=== PATIENT | male | born 1955 ===

== ENCOUNTER 2017-06-17 09:33 | Inpatient (IN) | payer OTHER ==
[2017-06-17 09:47] LABS: % IMMATURE GRANULYOCYTES 0.5 % (0.0-1.1); ABSOLUTE IMMATURE GRANULOCYTES 0.05 10^3/uL (0.00-0.10); ADD DIFF? NO; ADD MORPH? NO; ADD SCAN? NO; ATYPICAL LYMPHOCYTE FLAG 10 (0-99); FRAGMENT RBC FLAG 0 (0-99); HEMATOCRIT 40.9 % (40.0-51.0); HEMOGLOBIN 14.1 g/dL (13.7-17.5); LEFT SHIFT FLG 0 (0-99); LIPEMIA HEMOLYSIS FLAG 90 (0-99); MEAN CELL HEMOGLOBIN 32.1 pg (27.9-34.1); MEAN CELL HEMOGLOBIN CONCENTR. 34.5 g/dL (32.4-36.7); MEAN CELL VOLUME 93.2 fL (81.5-99.8); MEAN PLATELET VOLUME 10.2 fL (8.7-11.7); PLATELET CLUMPS FLAG 0 (0-99); PLATELET COUNT 294 10^3/uL (150-400); RED BLOOD CELL COUNT 4.39 10^6/uL (4.40-6.38); RED CELL DISTRIBUTION WIDTH 12.4 % (11.5-15.2)
--- NOTE | 2017-06-17 09:54 | CPEKG ---
Heart Rate: 45 RR Interval: 1333 P-R Interval: 204 QRSD Interval: 112 QT Interval: 476 QTC Interval: 412 P [place]: 198 QRS [place]: -18 T Wave [place]: -2 EKG Severity - ABNORMAL ECG - EKG Impression: SINUS OR ECTOPIC ATRIAL BRADYCARDIA EKG Impression: INCOMPLETE RIGHT BUNDLE BRANCH BLOCK EKG Impression: LEFT VENTRICULAR HYPERTROPHY Electronically Signed By: Dari Obando 17-Jun-2017 15:05:49
--- NOTE | 2017-06-17 09:55 | EDPHY ---
H & P Time Seen by Provider: 06/17/17 09:35 HPI/ROS: CHIEF COMPLAINT: Headache, nausea HISTORY OF PRESENT ILLNESS: 62-year-old male presents with sudden onset of headache this morning. Sudden onset of severe generalized headache this morning , associated with diaphoresis and nausea. On matrix supervisor arrival, he had slurred speech and left-sided weakness. Zofran 4 mg IV given for nausea. His speech is somewhat better now, but remains slurred. The left-sided weakness has improved. He continues to have a severe generalized headache. He is not on aspirin or other anticoagulants. No prior bleeding disorder. No recent head or neck trauma. 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 Physical Exam: General Appearance: Alert, pale, appears in pain Eyes: Pupils equal and round, no conjunctival pallor or injection ENT, Mouth: Mucous membranes moist Neck: Normal inspection Respiratory: Lungs are clear to auscultation Cardiovascular: Regular rate and rhythm Gastrointestinal: Abdomen is soft and nontender Neurological: alert, slurred speech, cranial nerves intact, motor 5/5 Skin: Warm and dry Extremities: Nontender, no pedal edema Psychiatric: flat affect Constitutional: Initial Vital Signs Heart Rate 45 L 06/17/17 09:49 Respiratory Rate 27 H 06/17/17 09:49 Blood Pressure 167/98 H 06/17/17 09:49 O2 Sat (%) 97 06/17/17 09:49 O2 Delivery Mode Nasal Cannula O2 (L/minute) 2 Allergies/Adverse Reactions: No Known Allergies Allergy (Unverified 06/17/17 10:10) Home Medications: Medication Instructions Recorded Prozac 20 MG (*) 06/17/17 Medical Decision Making - Diagnostics EKG Interpretation: EKG interpreted by me reveals the atrial bradycardia, rate 45, LVH. Imaging Results: Imaging Impressions Head CT 06/17/17 09:34 Impression: Acute intraparenchymal hemorrhage involving the cerebellar vermis measuring 4.3 x 3.5 cm with tonsillar herniation. Findings and recommendations discussed with Emergency Department physician, Dari Obando, at 0940 hours, 06/17/2017. Final report concurs with initial preliminary interpretation. A test result has been communicated to a licensed care provider and documented in the [employer] Critical Result system on 06/17/2017 10:09, Message ID [id number].. ED Course/Re-evaluation: This patient presents as a stroke alert with a sudden onset of severe headache. CT reveals a an acute cerebellar hemorrhage, with mass effect. Dr. Natasha Mccord was consulted and will see the patient in the emergency department. 9:45 a.m.-reassessment, drowsy, answers all questions appropriately, speech is slightly slurred, motor 5/5 bilaterally. Systolic blood pressure is 167. Cardene drip IV ordered; SBP goal 140-160. Seen by Dr. Mccord in the emergency department. Speech became more slurred throughout his emergency department stay. Neurologic exam was otherwise unchanged on serial exams. Normal respiratory status. We set up in case of possible need for intubation, but he maintained his airway throughout and was breathing normally. The patient was taken emergently to the operating room for evacuation of hemorrhage. I spent a total of 40 minutes of critical care time in obtaining history, performing a physical exam, bedside monitoring of interventions, collecting and interpreting tests and discussion with consultants but not including time spent performing procedures. Organ at risk: Brain Differential Diagnosis: Altered mental status including but not limited to subarachnoid hemorrhage, meningitis, migraine headache, hypoglycemia, infectious process, electrolyte abnormality, head injury and intoxicants. - Data Points Laboratory Results: Laboratory Results 06/17/17 09:30 06/17/17 09:30 06/17/17 06/17/17 06/17/17 09:35 09:30 09:30 WBC RBC Hgb POC Hgb 14.3 gm/dL gm/dL (13.7-17.5) Hct POC Hct 42 % % (40-51) MCV MCH MCHC RDW Plt Count MPV Neut % (Auto) Lymph % (Auto) [place] % (Auto) Eos % (Auto) Baso % (Auto) Nucleat RBC Rel Count Absolute Neuts (auto) Absolute Lymphs (auto) Absolute Monos (auto) Absolute Eos (auto) Absolute Basos (auto) Absolute Nucleated RBC Immature Gran % Immature Gran # PT 13.1 SEC SEC (12.0-15.0) INR 0.97 (0.83-1.16) APTT 24.1 SEC SEC (23.0-38.0) POC Sodium 143 mEq/L mEq/L (134-144) Sodium 144 mEq/L mEq/L (134-144) POC Potassium 3.2 mEq/L L mEq/L (3.3-5.0) Potassium 3.6 mEq/L mEq/L (3.5-5.2) POC Chloride 103 mEq/L mEq/L (97-110) Chloride 104 mEq/L mEq/L (97-110) Carbon Dioxide 24 mEq/l mEq/l (22-31) Anion Gap 16 mEq/L mEq/L (8-16) POC BUN 11 mg/dL mg/dL (7-23) BUN 11 mg/dL mg/dL (7-23) Creatinine 0.9 mg/dL mg/dL (0.7-1.3) POC Creatinine 1.0 mg/dL mg/dL (0.7-1.3) Estimated GFR > 60 Glucose 134 mg/dL H mg/dL (70-100) POC Glucose 143 mg/dL H mg/dL (70-100) Calcium 9.0 mg/dL mg/dL (8.5-10.4) Troponin I < 0.012 ng/mL ng/mL (0.000-0.034) 06/17/17 09:30 WBC 10.48 10^3/uL H 10^3/uL (3.80-9.50) RBC 4.39 10^6/uL L 10^6/uL (4.40-6.38) Hgb 14.1 g/dL g/dL (13.7-17.5) POC Hgb Hct 40.9 % % (40.0-51.0) POC Hct MCV 93.2 fL fL (81.5-99.8) MCH 32.1 pg pg (27.9-34.1) MCHC 34.5 g/dL g/dL (32.4-36.7) RDW 12.4 % % (11.5-15.2) Plt Count 294 10^3/uL 10^3/uL (150-400) MPV 10.2 fL fL (8.7-11.7) Neut % (Auto) 54.5 % % (39.3-74.2) Lymph % (Auto) 32.9 % % (15.0-45.0) [place] % (Auto) 11.5 % % (4.5-13.0) Eos % (Auto) 0.4 % L % (0.6-7.6) Baso % (Auto) 0.2 % L % (0.3-1.7) Nucleat RBC Rel Count 0.0 % % (0.0-0.2) Absolute Neuts (auto) 5.71 10^3/uL 10^3/uL (1.70-6.50) Absolute Lymphs (auto) 3.45 10^3/uL H 10^3/uL (1.00-3.00) Absolute Monos (auto) 1.21 10^3/uL H 10^3/uL (0.30-0.80) Absolute Eos (auto) 0.04 10^3/uL 10^3/uL (0.03-0.40) Absolute Basos (auto) 0.02 10^3/uL 10^3/uL (0.02-0.10) Absolute Nucleated RBC 0.00 10^3/uL 10^3/uL (0-0.01) Immature Gran % 0.5 % % (0.0-1.1) Immature Gran # 0.05 10^3/uL 10^3/uL (0.00-0.10) PT INR APTT POC Sodium Sodium POC Potassium Potassium POC Chloride Chloride Carbon Dioxide Anion Gap POC BUN BUN Creatinine POC Creatinine Estimated GFR Glucose POC Glucose Calcium Troponin I Medications Given: Discontinued Medications Bacitracin (Bacitracin Ointment Tube) Confirm Administered Dose 14.2 jefferson TP .STK -MED ONE Stop: 06/17/17 10:30 Last Admin: 06/17/17 12:56 Dose: 1 jefferson Bacitracin (Bacitracin Syringe) Confirm Administered Dose 50,000 units IRR .STK- MED ONE Stop: 06/17/17 10:32 Last Admin: 06/17/17 12:43 Dose: 50,000 units Bupivacaine HCl (Sensorcaine 0.25% Sdv) Confirm Administered Dose 30 ml .ROUTE .STK-MED ONE Stop: 06/17/17 10:31 Last Admin: 06/17/17 12:55 Dose: 30 ml Cefazolin Sodium (Ancef) Confirm Administered Dose [address] .[facility]-MED ONE Stop: 06/17/17 11:41 Last Admin: 06/17/17 12:50 Dose: 1 gm Cefazolin Sodium (Ancef) Confirm Administered Dose [address]-MED ONE Stop: 06/17/17 11:54 Last Admin: 06/17/17 12:50 Dose: 1 gm Chlorhexidine Gluconate (Hibiclens) Confirm Administered Dose [address]-MED ONE Stop: 06/17/17 10:30 Last Admin: 06/17/17 12:44 Dose: 1 btl Epinephrine HCl (Epinephrine) Confirm Administered Dose [address]-MED ONE Stop: 06/17/17 11:03 Last Admin: 06/17/17 12:55 Dose: 1 mg Fibrinogen/Thrombin (Surgiflo Matrix Kit With Thrombin) Confirm Administered Dose [address]-MED ONE Stop: 06/17/17 10:29 Last Admin: 06/17/17 12:46 Dose: 8 ml Nicardipine/Sodium Chloride (Cardene 0.1 Mg/Ml (Premix)) 200 mls @ 0 mls/hr IV EDNOW ONE; Titrate PRN Reason: Protocol Stop: 06/17/17 09:58 Last Admin: 06/17/17 10:11 Dose: 200 mls Microfibrillar Collagen Hemostat (Avitene Powder) Confirm Administered Dose [address]-MED ONE Stop: 06/17/17 10:32 Last Admin: 06/17/17 12:48 Dose: 1 gm Thrombin (Thrombin-Jmi) Confirm Administered Dose 5,[address]-MED ONE Stop: 06/17/17 10:31 Last Admin: 06/17/17 12:46 Dose: 5,000 unit Point of Care Test Results: 06/17/17 09:35 POC Sodium 143 POC Potassium 3.2 L POC Chloride 103 POC BUN 11 POC Creatinine 1.0 POC Glucose 143 H Departure - Departure Disposition: [facility] Inpatient Acute Clinical Impression: Acute cerebellar hemorrhage Condition: Critical
[2017-06-17] MEDS ORDERED: niCARdipine/NACL 200 ML IV ONE (09:57)
[2017-06-17 09:59] LABS: ANION GAP 16 mEq/L (8-16); CARBON DIOXIDE 24 mEq/l (22-31); CHLORIDE 104 mEq/L (97-110); CREATININE 0.9 mg/dL (0.7-1.3); GLOMERULAR FILTRATION RATE > 60; GLUCOSE 134 mg/dL (70-100); POTASSIUM 3.6 mEq/L (3.5-5.2); SODIUM 144 mEq/L (134-144)
[2017-06-17 10:01] LABS: INR 0.97 (0.83-1.16); PROTIME(PATIENT) 13.1 SEC (12.0-15.0)
[2017-06-17 10:02] LABS: APTT 24.1 SEC (23.0-38.0)
[2017-06-17] MEDS ORDERED: IOPAMIDOL (ISOVUE 370) 100 ML BTL IV ONE (10:08)
[2017-06-17 10:11] LABS: TROPONIN I < 0.012 ng/mL (0.000-0.034)
[2017-06-17] MEDS ORDERED: SURGIFLO MATRIX KIT WITH THROMBIN 8ml TP ONE (10:28)
[2017-06-17] MEDS ORDERED: BACITRACIN ZINC 14.2 GM OINTTUBE TP ONE (10:29)
[2017-06-17] MEDS ORDERED: CHLORHEXIDINE GLUC HIBICLENS 118 ML BTL TP ONE (10:29)
[2017-06-17] MEDS ORDERED: THROMBIN (BOVINE) 5,000 UNIT VIAL TP ONE (10:30)
[2017-06-17] MEDS ORDERED: BUPIVACAINE 0.25% 30 ML SDV ONE (10:30)
[2017-06-17] MEDS ORDERED: MANNITOL 20% 100 GM/500 ML BAG IV ONE (10:30)
[2017-06-17] MEDS ORDERED: BACITRACIN 50,000 UNITS/10 ML SYR IRR ONE (10:31)
[2017-06-17] MEDS ORDERED: HYDROGEN PEROXIDE 236 ML BOTTLE TP ONE (10:31)
[2017-06-17] MEDS ORDERED: AVITENE POWDER 1 GM JAR TP ONE (10:31)
[2017-06-17] MEDS ORDERED: SUCCINYLCHOLINE CHLORIDE 200 MG/10 ML SYR IVP ONE (10:40)
[2017-06-17] MEDS ORDERED: ROCURONIUM 50 MG/5 ML VIAL ONE ×3 (10:40→13:33)
[2017-06-17] MEDS ORDERED: PHENYLEPHRINE 10 MG/ML SDV ONE (10:41)
[2017-06-17] MEDS ORDERED: PROPOFOL 200 MG/20 ML VIAL ONE ×2 (10:47→15:42)
[2017-06-17] MEDS ORDERED: LIDOCAINE 2% 5 ML SDV ONE (10:47)
[2017-06-17] MEDS ORDERED: fentaNYL 100 MCG/2 ML INJ ONE ×2 (10:48→15:44)
--- NOTE | 2017-06-17 11:29 | GHP ---
[f rep st] HISTORY AND PHYSICAL DATE OF ADMISSION: 06/17/2017 HISTORY OF PRESENT ILLNESS: The patient is a 62-year-old male who presented to the emergency room du e to the sudden onset of a headache. The patient states he woke up this morning with a severe headac he. He also had associated nausea and vomiting, as well as diaphoresis. Currently in the emergency room department, he is having slurred speech and is becoming lethargic. PAST MEDICAL HISTORY: Denies. PAST SURGICAL HISTORY: Tonsillectomy, hernia repair. SOCIAL HISTORY: The patient is visiting from [place]. Admits to alcohol use. Denies tobacco and rec reational drug use. ALLERGIES: No known drug allergies. CURRENT HOME MEDICATIONS: Denies. FAMILY HISTORY: No pertinent neurosurgical family history. REVIEW OF SYSTEMS: Unable to obtain due to patient's mental status. PHYSICAL EXAMINATION: GENERAL: The patient was seen and examined in the emergency room department carter Mccord and myself. VITAL SIGNS: Blood pressure is 161/98, heart rate is 88, respirations are 18, breathing 97% on room air. HEENT: Pupils are equal and reactive. NEUROLOGICAL EXAMINATION: Speech is slurred. Patient is lethargic. Needs constant stimulation to a nswer questions. Facial expression is symmetrical. Hearing appears to be intact. Lower extremity s trength is full at 5/5 upper extremity strength. Unable to fully assess due to lack of cooperation a nd participation. Right upper extremity dysmetria. LABORATORY DATA: White count 10.48, hemoglobin 14.1, hematocrit is 40.9, platelet count 294. PT 13. 1, INR 0.97, PTT 24.1. Sodium 143, potassium 3.6, chloride 104, bicarb 24, BUN 11, creatinine 0.9. IMAGING: CT of the head: Acute intraparenchymal hemorrhage in the midline cerebellar vermis, measur ing 4.3 x 3.5 cm, with extension into the 4th ventricle. Mass effect and edema. Early tonsillar her niation with flattening of the 4th ventricle. No hydrocephalus. Bilateral parietal-occipital atroph y. No midline shift or herniation. ASSESSMENT AND PLAN: In summary, the patient is a 62-year-old male with sudden onset of headache, no w with nausea, vomiting, slurred speech, and increasing lethargy. The CT has been completed, demonst rating an acute intraparenchymal hemorrhage involving the cerebellar vermis, measuring 4.3 x 3.5 cm w ith tonsillar herniation. We will obtain a stat CTA of the head to rule out aneurysm rupture. Due t o the patient's rapid decline in neurological status, as well as his head CT, we recommend proceeding with emergent surgical intervention with a posterior fossa craniotomy. The risks, benefits, and pro cedure were discussed in detail with the patient's over the phone by Dr. Mccord. After the CT of the head, patient will be taken directly to the operating room to proceed with surgical interve ntion by Dr. Ruiz. He will then be admitted to the intensive care unit with neuro checks every ashley r and close blood pressure management. The patient was seen and examined by myself and Dr. Natasha Mccord in the emergency room. /[id number]/MODL
[2017-06-17] MEDS ORDERED: ceFAZolin 1 GM VIAL ONE ×2 (11:40→11:53)
--- NOTE | 2017-06-17 11:52 | PDANEPAE ---
ANE History of Present Illness cerebellar hemorrhage ANE Past Medical History - Cardiovascular History Hx Hypertension: No Hx Arrhythmias: No Hx Chest Pain: No - Pulmonary History Hx COPD: No Hx Asthma/Reactive Airway Disease: No - Neurologic History Hx Cerebrovascular Accident: Yes Hx Seizures: No Hx Dementia: No - Endocrine History Hx Diabetes: No - Renal History Hx Renal Disorders: No - Liver History Hx Hepatic Disorders: No ANE Review of Systems Review of Systems: - Exercise capacity Exercise capacity: unable to assess ANE Patient History - Allergies Allergies/Adverse Reactions: No Known Allergies Allergy (Unverified 06/17/17 10:10) - Home Medications Home Medications: Prozac 20 MG (*) 06/17/17 [Last Taken Unknown] - Anes Hx Anes Hx: no prior problems ANE Labs/Vital Signs - Labs Result Diagrams: 06/17/17 09:30 06/17/17 09:30 - Vital Signs Blood Pressure: 161/90 Heart Rate: 88 Respiratory Rate: 18 O2 Sat (%): 97 Weight: 111 kg ANE Physical Exam - Airway Mallampati Score: Class 2 Mouth exam: normal dental/mouth exam - Pulmonary Pulmonary: no respiratory distress - Cardiovascular Cardiovascular: regular rate and rhythym - ASA Status ASA Status: II, E ANE Anesthesia Plan Anesthesia Plan: general endotracheal anesthesia Lines/Monitors: arterial line, additional IV Urgent/Emergent Case: Kalia carney completed preop but documented later for safe timely pt care
[2017-06-17] MEDS ORDERED: MAGNESIUM HYDROXIDE 30 ML UDCUP PO PRN (11:59)
[2017-06-17] MEDS ORDERED: POLYETHYLENE GLYCOL 3350 17 GM PKT PO PRN (11:59)
[2017-06-17] MEDS ORDERED: ACETAMINOPHEN 325 MG TAB PO PRN (11:59)
[2017-06-17] MEDS ORDERED: BISACODYL 10 MG SUPP PR PRN (11:59)
[2017-06-17] MEDS ORDERED: LACTULOSE 20 GM/30 ML UDCUP PO PRN (11:59)
--- NOTE | 2017-06-17 12:44 | ASMTCMCOM ---
CM Note CM Note Notes: Patient arrived to ER via EMS "Stroke Alert" from the [facility]. Patient is visiting from [facility]. Emergency contact for his /partner, Jamie found and . Jamie reached on the former number and spoke with myself and Dr. Mccord (Neuro surgery) re consent for emergent surgery R/T hemorrhagic stroke. Consent received and verified with RN X2 (myself and charge gang weigher). Jamie informed of plan for patient to go directly to surgery and then to the ICU. Phone numbers and contact information provided, including ICU and ER CM office. Date Signed: 06/17/2017 12:43 PM Electronically Signed By:Smiley Mills RN
[2017-06-17] MEDS ORDERED: SUGAMMADEX SODIUM 200 MG/2 ML VIAL IVP ONE (15:00)
--- NOTE | 2017-06-17 15:38 | POSTOPPROG ---
Post Op Note Date of Operation: 06/17/17 Surgeon: Jennifer Castro Radiophone Operator: Jennifer Castro SET UP WORKER Anesthesiologist: Alfredo Anesthesia: GET(General Endotracheal) Pre-op Diagnosis: Cerebellum Hemorrage Procedure: Posterior Fossa Craniotomy and placement of right ventriculostomy drain Inf/Abcess present in the surg proc area at time of surgery?: No EBL: 100-500 Total fluids administered: 1000ml Complications: None Date of Surgery: 06/17/17 Post Op Day: 0 Assessment/Plan: Assessment: 62 yr old s/p posterior fossa craniotomy for cerebellum hemorrhage and placement of right ventriculostomy drain Plan: -Admit to ICU -Keep hob at 30-45 degrees -EVD open at 5 mmg -Nicardipine ordered to keep sbp less than 130 -PT/OT/ST to eval and treat -Post op CT head no contrast ordered for 1800 today -Please call neurosurgery with any questions/concerns Subjective: Patient waking up in ICU Objective: Waking up in ICU from surgery PERRLA No droop Following commands 5/5 BUE, BLE Dressing CDI EVD site CDI Appropriate Neuro Check Frequency Ordered: Yes
[2017-06-17] MEDS ORDERED: METHOCARBAMOL 750 MG TAB PO SCH (16:00)
[2017-06-17] MEDS: HYDROmorphONE/DILAUDID 1 MG/ML INJ IVP PRN ×5 (16:16→22:53)
[2017-06-17] MEDS: NS W/ 20 KCl/L 1,000 ML IV SCH (16:20)
[2017-06-17] MEDS: niCARdipine/NACL 200 ML IV PRN ×5 (16:30→22:27)
[2017-06-17] MEDS ORDERED: hydrALAZINE 20 MG/ML VIAL ONE (17:00)
[2017-06-17] MEDS: hydrALAZINE 20 MG/ML VIAL IVP PRN ×2 (17:02→23:27)
[2017-06-17] MEDS: METHOCARBAMOL 1000 MG/10 ML VIAL IV SCH (19:40)
[2017-06-17] MEDS: SENNOSIDES/DOCUSATE SODIUM TAB PO SCH (21:02)
[2017-06-17] MEDS ORDERED: ACETAMINOPHEN 650 MG SUPP PR ONE (22:50)
[2017-06-17] MEDS: ACETAMINOPHEN 650 MG SUPP PR PRN (23:10)
[2017-06-18] MEDS: niCARdipine/NACL 200 ML IV PRN ×4 (00:21→05:33)
--- NOTE | 2017-06-18 00:36 | GOP ---
[f rep st] OPERATIVE REPORT DATE OF OPERATION: 06/17/2017 SURGEON: Ayan Ruiz MD NEUROSURGEON: Ayan Ruiz MD CAKE KNOCKER[facility] ANESTHESIA: General endotracheal and local. PREOPERATIVE DIAGNOSIS: 1. Cerebellar hemorrhage with brain compression. 2. Hypertension. POSTOPERATIVE DIAGNOSIS: 1. Cerebellar hemorrhage with brain compression. 2. Hypertension. PROCEDURE PERFORMED: 1. Subtemporal craniotomy for evacuation of cerebellar hematoma. 2. Placement of a right frontal external ventricular drain. FINDINGS: ESTIMATED BLOOD LOSS: 100 mL. INDICATIONS: The patient is a 62-year-old gentleman who has no known prior history of hypertension. Earlier this morning, he suddenly developed headache, nausea and slurred speech, as well as some left side weakness. He was brought to [facility] Emergency Department for evaluation. CT scan of the head demonstrated a fairly large cerebellar hematoma causing compression of the adjacent brain stem. On exam, he was awake and following commands, but had significantly slurred speech and mild weakness or lack of coordination on the left side of his body. Given the significant size of the hemorrhage and brain stem compression, it was recommended that he undergo emergency operation to remove the hematoma and place an external ventricular drain. Dr. Mccord spoke to his significant other via telephone and obtained consent for these procedures, however, she was not available to do them in an emergent manner, so I assumed the case. Notably , he had a CT angiogram that did not demonstrate any vascular malformation or other source for the hemorrhage. DESCRIPTION OF PROCEDURE: The patient was brought to the operating room and general anesthesia was initiated. He was intubated without complication. Appropriate lines were established. The Lloyd pins were then placed on the patient's head, and he was turned into prone position. The Lloyd was attached to the OR table and he was further positioned with all pressure points appropriately padded. A timeout was done per protocol. The patient was then prepped and draped in the usual sterile fashion. Approximately 15 mL of 0.25% Marcaine with epinephrine was injected along the intended incision for local anesthesia and vasoconstriction. A posterior midline incision was then made over the occipital bone over the upper cervical spine. This was carried deeper with Bovie cautery. The avascular midline plane was identified and the occipital bones, as well as the posterior arch of C1 were exposed to allow enough lateral retraction of the soft tissues to complete a wide craniotomy. Once the occipital bones were adequately, exposed, a matchstick bur on the high-speed drill was used to create 2 bur holes, 1 on each side of midline. The bur was then used to remove some of the intervening bone across the midline. A 2 mm Kerrison was used to further remove bone to connect the 2 bur holes. The side-cutting craniotome was then used to fashion a bilateral suboccipital craniotomy flap. This was removed and passed to the sterile back table. A dural incision was then made in a Y-shaped fashion in the midline. There was bleeding from a venous sinus. This was ligated with silk sutures and then sharply sectioned with scissors. The dural flaps were retracted. A small corticectomy was then made in the vermis, slightly to the patient's left side. It was extended inferiorly and superiorly, and then taken deeper until the blood clot was encountered. The hematoma was then removed in piecemeal fashion with suction and forceps. A large amount of blood clot was removed until part of the brain stem was exposed. At this point, there was very good decompression of the cerebellum. Attention was then turned to closure. Meticulous hemostasis was obtained. The dural flaps were then placed back in position and sutured primarily, as water- tight as possible. However, there was a fairly large defect near the inferior portion. A piece of Dura-Guard was sewn in to patch this section. A piece of DuraGen onlay was then placed over the entire opening. The bone flap was then replaced using 2 small bur hole covers and two 2-hole dog bone plates with 10 screws. The wound was thoroughly irrigated and then closed in layers starting with an 0 Vicryl in the deep muscles, followed by interrupted 0 Vicryl in the fascia, followed by inverted interrupted 2-0 Vicryl in the subcutaneous tissues, and finally skin everett in the superficial skin. A layer of bacitracin ointment was placed on this, and then a piece of Telfa dressing was stapled on top of it. The drapes were then removed. The patient was then turned into supine position after disconnecting the Lloyd from the table. The pins were removed from his head. There were no obvious complications from the pins. Attention was then turned to placement of a right frontal external ventricular drain. His head was again prepped and draped in the usual sterile fashion. A small linear incision was made over the right Imtiaz point, approximately 11.5 mm posterior from the nasion and 3.5 cm laterally. The periosteum was scraped aside after an incision was made with a # 15 blade. The hand drill was then used to create a twist drill hole in the right frontal bone. The dura was then opened sharply with a #11 blade. The ventricular catheter was then passed. There was not any return of cerebrospinal fluid on the first 3 attempts, but on the fourth attempt, after changing the angle slightly each time, there was return of cerebrospinal fluid. The catheter was then tunneled posteriorly under the scalp and then brought out through a separate stab incision, and the trocars were removed from the drain. It was temporarily capped. The incision was closed with running 4-0 nylon suture. The drain was then anchored to the scalp with 3-0 nylon suture. After it was anchored, the drain was connected to the Villalobos drainage system. It was patent. It was clamped at this point, and the drapes were removed. DRAINS: Right frontal external ventricular drain. COMPLICATIONS: None apparent. SPECIMENS: None. DISPOSITION: Will attempt to allow the patient to wake up and possibly extubate him in the operating room. He will then be taken to intensive care unit for further recovery. /[id number]/MODL MTDD
[2017-06-18] MEDS: HYDROmorphONE/DILAUDID 1 MG/ML INJ IVP PRN ×4 (01:17→16:36)
[2017-06-18 03:54] LABS: BASE EXCESS -1.2 mEq/L (-2.5-2.5); BICARBONATE 26 mEq/L (22-26); MEASURED OXYGEN SATURATION 92 % (92-95); PCO2 57 mmHg (34-38); PO2 71 mmHg (65-75); TCO2 28 mEq/L (23-27)
[2017-06-18] MEDS: METHOCARBAMOL 1000 MG/10 ML VIAL IV SCH ×3 (03:54→20:11)
[2017-06-18] MEDS: ONDANSETRON 4 MG/2 ML VIAL IVP PRN (03:54)
[2017-06-18 04:05] LABS: % IMMATURE GRANULYOCYTES 0.4 % (0.0-1.1); ABSOLUTE IMMATURE GRANULOCYTES 0.05 10^3/uL (0.00-0.10); ADD DIFF? NO; ADD MORPH? NO; ADD SCAN? NO; ATYPICAL LYMPHOCYTE FLAG 10 (0-99); FRAGMENT RBC FLAG 0 (0-99); HEMATOCRIT 36.4 % (40.0-51.0); HEMOGLOBIN 12.5 g/dL (13.7-17.5); LEFT SHIFT FLG 10 (0-99); LIPEMIA HEMOLYSIS FLAG 90 (0-99); MEAN CELL HEMOGLOBIN 32.9 pg (27.9-34.1); MEAN CELL HEMOGLOBIN CONCENTR. 34.3 g/dL (32.4-36.7); MEAN CELL VOLUME 95.8 fL (81.5-99.8); MEAN PLATELET VOLUME 10.1 fL (8.7-11.7); PLATELET CLUMPS FLAG 0 (0-99); PLATELET COUNT 257 10^3/uL (150-400); RED CELL DISTRIBUTION WIDTH 12.6 % (11.5-15.2)
[2017-06-18 04:15] LABS: ANION GAP 12 mEq/L (8-16); CALCIUM 8.2 mg/dL (8.5-10.4); CARBON DIOXIDE 26 mEq/l (22-31); CHLORIDE 108 mEq/L (97-110); CREATININE 0.9 mg/dL (0.7-1.3); GLOMERULAR FILTRATION RATE > 60; GLUCOSE 182 mg/dL (70-100); POTASSIUM 4.1 mEq/L (3.5-5.2); SODIUM 146 mEq/L (134-144)
[2017-06-18 06:26] LABS: BASE EXCESS -0.8 mEq/L (-2.5-2.5); BICARBONATE 24 mEq/L (22-26); MEASURED OXYGEN SATURATION 92 % (92-95); PCO2 40 mmHg (34-38); PO2 63 mmHg (65-75); TCO2 25 mEq/L (23-27)
--- NOTE | 2017-06-18 08:33 | NEUSURGPN ---
Date of Surgery: 06/17/17 Post Op Day: 1 Assessment/Plan: Assessment: 62 yr old s/p posterior fossa craniotomy for cerebellum hemorrhage and placement of right ventriculostomy drain POD#1 Plan: -Keep hob at 30-45 degrees -EVD open at 5 mmg, ICPs running 5-15, 80ml out last night -Nicardipine ordered to keep sbp less than 130. Patient currently on max, hydralzine ordered for prn. Appreciate medicine input on blood pressure management. -PT/OT/ST to eval and treat -Post op CT head has some residual blood, will get MRI brain with/without today for further evaluation -Will consult Neurology today -Discussed patient with Dr Ruiz, Dr Ruiz will be by to see patient this morning -Please call neurosurgery with any questions/concerns Subjective: Patient having some incisional pain Objective: Patient oriented to self, location Following commands PERRLA EOMI No droop CN 2-12 grossly intact 5/5 BUE, BLE Dressing CDI EVD site CDI Neuro Check Frequency: per routine Urinary Catheter in Place: Yes Urinary Catheter Indication: Accurate I & O Required, Neurogenic Bladder Catheter Insertion Date: 06/17/17 - Physician Discussed Patient with Dr.: Other (Dr Ruiz) Neurosurgery Physical Exam - Vitals, I&O, Labs I and O 06/17/17 06/18/17 06/19/17 05:59 05:59 05:59 Intake Total 2864 Output Total 1148 146 Balance 1716 -146 Weight 111 kg Intake: IV Infused (ml) 2864 NS W/ 20 KCl/L 1,000 ml @ 685 100 mls/hr IV CONT MARIO Rx#:[id number] ceFAZolin 1 GM/DEXTROSE 50 50 ml @ 200 mls/hr IV Q8H MARIO Rx#:[id number] niCARdipine/NACL 200 ml @ 1929 Titrate IV PRN PRN Rx#: [id number] Output: Urine (ml) 1060 125 Catheter 1060 125 CSF Drainage Amount 88 21 Ventriculostomy 88 21 Vital Signs Temp Pulse Resp BP Pulse Ox 37.1 C 84 24 H 135/49 H 97 06/18/17 07:00 06/18/17 08:00 06/18/17 08:00 06/18/17 08:00 06/18/17 08:00 Laboratory Results 06/18/17 03:40 06/18/17 03:40 ICD10 Worksheet Patient Problems: Problems Problem Status Onset Acute cerebellar hemorrhage Acute
[2017-06-18] MEDS: hydrALAZINE 20 MG/ML VIAL IVP PRN (09:13)
[2017-06-18] MEDS ORDERED: LABETALOL HCL 5 MG/ML 20 ML MDV IVP PRN (09:50)
[2017-06-18] MEDS: SENNOSIDES/DOCUSATE SODIUM TAB PO SCH ×2 (10:10→20:39)
[2017-06-18] MEDS: oxyCODONE IR 5 MG TAB PO PRN (10:11)
[2017-06-18] MEDS: NS W/ 20 KCl/L 1,000 ML IV SCH (10:45)
[2017-06-18] MEDS ORDERED: FUROSEMIDE 20 MG/2 ML VIAL IVP ONE (13:15)
[2017-06-18] MEDS ORDERED: ALTEPLASE 2 MG VIAL IVP PRN (13:15)
--- NOTE | 2017-06-18 13:19 | PDINTPN ---
Recreation Attendant Progress Note Assessment/Plan: Assessment: S/P Cerebellar ICH: S/P Evacuation 06/17. Neurologically improving. HTN: None prior to admission. Now requiring Nicardipine and still with SBP at upper limit of preferred range. Hypokalemia: Resolved. Hyperglycemia: BSs still in mid-upper 100s. Plan: Lasix, place PICC, add enalapril to Cardene, use labatelol PRN. Start SSI. 06/18/17 13:19 06/18/17 13:20 Subjective: Following commands, C/O headache. Objective: Vital Signs Temp Pulse Resp BP Pulse Ox 37.2 C 86 24 H 130/54 H 96 06/18/17 12:00 06/18/17 13:00 06/18/17 13:00 06/18/17 13:00 06/18/17 13:00 Laboratory Results 06/18/17 03:40 06/18/17 03:40 06/17/17 06/18/17 06/19/17 05:59 05:59 05:59 Intake Total 2864 Output Total 1148 254 Balance 1716 -254 PT 13.1 SEC (12.0-15.0) 06/17/17 09:30 INR 0.97 (0.83-1.16) 06/17/17 09:30 Physical Exam - Physical Exam General Appearance: alert, no apparent distress EENT: other (s/p craniotomy) Neck: normal inspection Respiratory: lungs clear Cardiac/Chest: regular rate, rhythm, No edema Abdomen: normal bowel sounds, non-tender Skin: normal color, warm/dry Extremities: normal inspection Neuro/Psych: alert, No normal mood/affect, No oriented x 3 ICD10 Worksheet Patient Problems: Problems Problem Status Onset Acute cerebellar hemorrhage Acute
--- NOTE | 2017-06-18 13:47 | GCON ---
[f rep st] CONSULTATION A PULMONARY/CRITICAL CARE CONSULTATION DATE OF CONSULTATION: 06/17/2017 REFERRING PHYSICIAN: Natasha Mccord DO REASON FOR REFERRAL: Evaluation and management of hyperglycemia and hypokalemia. HISTORY: The patient is a 62-year-old male who was admitted today via the ER after he woke up this m orning with a severe headache with associated nausea, vomiting, and diaphoresis. He developed slurre d speech and lethargy in the emergency department. A CT scan of the head showed an acute cerebellar hemorrhage with extension into the 4th ventricle. There was mass effect and edema and early tonsilla r herniation. He was taken to the operating room emergently by Dr. Mccord, who performed a cranioto my and evacuation of thrombus. He was returned to the intensive care unit, extubated, and not follow ing commands. No history could be obtained from the patient. PAST MEDICAL HISTORY: None. MEDICATIONS: Ativan p.r.n., Prozac. ALLERGIES: None. SOCIAL HISTORY: The patient is visiting from [place]. He drinks alcohol. He denies tobacco and othe r drug use. FAMILY HISTORY: Unremarkable. REVIEW OF SYSTEMS: Unobtainable. PHYSICAL EXAMINATION: GENERAL APPEARANCE: The patient is minimally responsive postoperatively. He follows some simple commands with repeated questioning, but does not follow commands reliably. He is not opening his eyes spontaneously or to command. VITAL SIGNS: Blood pressure is 158/79 with a hea rt rate of 91. He is afebrile. Oxygen saturations are 99% on 4 L. HEENT: He is status post a post erior craniotomy. He has no icterus. NECK: No adenopathy. Trachea is midline. CHEST: Clear to a uscultation. CARDIAC: Regular rate and rhythm without murmur. ABDOMEN: Soft, nontender. Bowel so unds are present. EXTREMITIES: No clubbing, cyanosis, or edema. NEURO: The patient is intermitten tly following some simple commands, is able to move all extremities. LABORATORY/IMAGING DATA: Potassium is 3.2. A sodium is 143. A creatinine is 1.0. Glucose is 143. A white blood count is 10.5 with a hemoglobin of 14.1. A CT scan of the head demonstrates a large m idline cerebellar hemorrhage. Images reviewed by me. ASSESSMENT: 1. Acute cerebellar hemorrhage. The patient is status post craniotomy with evacuation of the hemato ma. 2. Hypertension. The patient's blood pressure is elevated and this is above the goal for this posto perative patient. 3. Hypokalemia. This was not present on admission, but has developed during the hospitalization. T he patient is not having any arrhythmias. 4. Hyperglycemia. The patient's blood sugars have been running in the low-mid 100s since admission. The patient does not have a known history of diabetes. RECOMMENDATIONS: 1. Nicardipine as needed for hypertension. P.r.n. hydralazine and labetalol can be added on a p.r.n . basis. 2. Follow blood sugars. I will not start a sliding scale insulin currently, given his blood sugars have been below 150. 3. Replace potassium. 4. Frequent neuro checks. /[id number]/MODL
[2017-06-18] MEDS: LABETALOL HCL 5 MG/ML 20 ML MDV IVP PRN (14:07)
[2017-06-18] MEDS: LORazepam 2 MG/ML INJ IVP PRN (14:46)
--- NOTE | 2017-06-18 15:20 | ASMTCMCOM ---
CM Note CM Note Notes: Pt. is a 62-year-old man who had a cerebellar hemorrhage. Pt. had craniotomy. Pt. w/ slurred speech, dizziness, and tremors. Pt. visiting from [place] with his , Jamie . Jamie here and supportive. PT, OT, and SENIOR INVESTMENT MANAGER all recommending Inpatient Rehab at this time. Left message with Su Lovelace at [facility] Inpt. Rehab. Still need MD orders for Rehab Consult. CM to follow for d/c POC. Date Signed: 06/18/2017 03:19 PM Electronically Signed By:Yoly Werner LCSW
[2017-06-18] MEDS ORDERED: DEXMEDETOMIDINE HCL 400 MCG in NS 100 ML IV SCH (16:30)
[2017-06-18] MEDS ORDERED: LORazepam 2 MG/ML INJ IV ONE (17:00)
[2017-06-18] MEDS: ENALAPRILAT DIHYDRATE 1.25 MG/ML VIAL IVP SCH (17:07)
[2017-06-18] MEDS: INSULIN REGULAR HUMAN 100 UNIT/ML SC SCH ×2 (17:54→20:51)
[2017-06-18] MEDS: FAMOTIDINE 20 MG/NACL 50 ML IV SCH (20:20)
[2017-06-18] MEDS: ACETAMINOPHEN 650 MG SUPP PR PRN (20:25)
[2017-06-18 21:21] LABS: CALCULATED OXYGEN SATURATION 83 % (92-95)
[2017-06-18] MEDS: DEXMEDETOMIDINE IN 0.9 % NACL 100 ML IV SCH (21:42)
[2017-06-19] MEDS: ENALAPRILAT DIHYDRATE 1.25 MG/ML VIAL IVP SCH ×4 (00:52→18:34)
[2017-06-19] MEDS: HYDROmorphONE/DILAUDID 1 MG/ML INJ IVP PRN ×3 (00:52→17:30)
[2017-06-19] MEDS: METHOCARBAMOL 1000 MG/10 ML VIAL IV SCH ×2 (04:23→11:47)
[2017-06-19] MEDS: oxyCODONE IR 5 MG TAB PO PRN (05:58)
[2017-06-19] MEDS: hydrALAZINE 20 MG/ML VIAL IVP PRN (06:21)
--- NOTE | 2017-06-19 08:27 | SOAPPROG ---
SOAP Progress Note Assessment/Plan: Assessment/Plan: 62 yr old s/p posterior fossa craniotomy for cerebellum hemorrhage and placement of right ventriculostomy drain POD#2 Plan: -Keep hob at 30-45 degrees -EVD open at 5 mmg, ICP 7 this AM, draining about 10ml/hr -Nicardipine ordered to keep sbp less than 130. Patient currently on max, hydralzine ordered for prn, also on orals. Appreciate medicine input on blood pressure management. -PT/OT/ST to eval and treat -Post op CT head has some residual blood, will get MRI brain with/without when he can tolerate for further evaluation - Neurology consulted -Discussed patient with Dr Ruiz -Please call neurosurgery with any questions/concerns 06/19/17 08:27 06/19/17 08:28 Subjective: Subjective: Awake, comfortable with occasional agitation Objective: Vital Signs Temp Pulse Resp BP Pulse Ox 37.2 C 76 19 134/49 H 93 06/19/17 06:00 06/19/17 07:00 06/19/17 07:00 06/19/17 07:00 06/19/17 07:00 Laboratory Results 06/18/17 03:40 06/18/17 03:40 06/18/17 06/19/17 06/20/17 05:59 05:59 05:59 Intake Total 2864 2087.2 Output Total 1148 1817 19 Balance 1716 270.2 -19 PT 13.1 SEC (12.0-15.0) 06/17/17 09:30 INR 0.97 (0.83-1.16) 06/17/17 09:30 Objective: Slurred speech Following commands x4 PERRLA EOMI No droop 5/5 BUE, BLE Dressing CDI EVD site CDI ICD10 Worksheet Patient Problems: Problems Problem Status Onset Acute cerebellar hemorrhage Acute
[2017-06-19] MEDS: INSULIN REGULAR HUMAN 100 UNIT/ML SC SCH ×4 (08:32→21:37)
[2017-06-19] MEDS: FAMOTIDINE 20 MG/NACL 50 ML IV SCH ×2 (09:11→21:32)
[2017-06-19] MEDS: FLUoxetine 20 MG CAP PO SCH (09:11)
[2017-06-19] MEDS: SENNOSIDES/DOCUSATE SODIUM TAB PO SCH ×2 (09:11→21:28)
[2017-06-19] MEDS: DEXMEDETOMIDINE IN 0.9 % NACL 100 ML IV SCH (10:43)
--- NOTE | 2017-06-19 11:50 | PDINTPN ---
Discharge Planner Progress Note Assessment/Plan: Assessment: S/P Cerebellar ICH: S/P Evacuation 06/17. Neurologically improving. HTN: None prior to admission. Now requiring Nicardipine and still with SBP at upper limit of preferred range. Hypokalemia: Resolved. Hyperglycemia: BSs still in mid 100s. Plan: Start PO CCB and ADENIKE-I. Use labatelol PRN, but have had low HR. Can try minoxidil if still unable to control BP. Continue SSI. 06/19/17 11:48 Subjective: C/O BARNES. Still quite weak. Able to take PO. Objective: Vital Signs Temp Pulse Resp BP Pulse Ox 37.2 C 77 17 129/54 H 92 06/19/17 06:00 06/19/17 11:00 06/19/17 11:00 06/19/17 11:00 06/19/17 11:00 Laboratory Results 06/18/17 03:40 06/18/17 03:40 06/18/17 06/19/17 06/20/17 05:59 05:59 05:59 Intake Total 2864 2087.2 150 Output Total 1148 1817 206 Balance 1716 270.2 -56 PT 13.1 SEC (12.0-15.0) 06/17/17 09:30 INR 0.97 (0.83-1.16) 06/17/17 09:30 Physical Exam - Physical Exam General Appearance: alert, mild distress (wiht pain) EENT: normal ENT inspection Neck: full range of motion, normal inspection Respiratory: lungs clear, No normal breath sounds Cardiac/Chest: regular rate, rhythm, No edema Abdomen: normal bowel sounds, non-tender Skin: normal color, warm/dry Extremities: normal inspection Neuro/Psych: alert (Resting but arousable and able t oanswer simple questions/ follow commands.), No motor weakness ICD10 Worksheet Patient Problems: Problems Problem Status Onset Acute cerebellar hemorrhage Acute
[2017-06-19] MEDS ORDERED: LISINOPRIL 10 MG TAB PO SCH (12:00)
--- NOTE | 2017-06-19 13:14 | NEUROPROG ---
Assessment: [id number] CC: Dr. Rojo (Neurosurgery) consulted neurology for infratentorial hemorrhage. Results placed in the EMR for his review. HPI: Pt admitted to [facility] on 06/17/17 for intracerebral hemorrhage. He developed a sudden onset severe headache day of admission with associated N/V and slurred speech. Head CT showed a hemorrhage in the cerebellum. Neurosurgery performed a decompressive craniotomy and ventriculostomy to address. I initially saw the patient on 06/19/17. He was very sedated and his speech was dysarthric. PMHx: hernia repair, tonsillectomy SHx: no tobacco FHx: no pertinent neurosurgical history ROS: Pt denied acute fever, total vision loss, active severe chest pain, respiratory failure, total body severe rash, total bowel/bladder incontinence, psychosis, active seizures, or active bleeding O: VS reviewed General: Somnolent, has ventriculostomy Eyes: Fundoscopic exam not able to visualize optic disks CV: Heart RRR, no murmur, no carotid bruit Lungs: Clear to auscultation bilaterally, no rhonci or rales Neuro: - Mental: pt very somnolent and very dysarthric speech so could not perform full mental status testing - Cranial Nerves: . II: PERRL, VFFTC . III/IV/: EOMI, no nystagmus, normal smooth pursuits, no Ptosis . V: facial sensation intact to LT . VII: face symmetric to eye closure and smile . VIII: hearing intact to conversation . IX/X: dysarthric speech . XI: SCM 5/5 B/L strength . XII: dysarthric speech - Motor: . Tone: normal tone in all 4 extrem . Strength: generalized weakness but no clear focal weakness - Reflexes: B/L bic/BR/patella 2/4 - Sensory: all 4 extrem intact to light touch - Coord: no clear ataxia but generalized weakness complicates testing - Gait: deferred Labs: 06/17/17- CBC WBC 10.48H, Coags wnl, Chem Gluc 34H Rads: 06/17/17- Head CT: acute intraparenchymal hemorrhage involving cerebellar vermis w/ tonsillar herniation. (I personally visualized the images on 06/18/17) 06/17/17- Head CTA: Normal CT angiography of the head with attention to the great vessels of the [place]. No vascular abnormality is seen to explain posterior fossa hemorrhage. 06/17/17- Head CT: 1. Interval posterior fossa craniotomy with partial evacuation of the previously described vermian hematoma. There is persistent, though probably decreased, herniation of the cerebellar tonsils. 2. More extensive intraventricular hemorrhage involving the lateral and third ventricle. Hemorrhage in the fourth ventricle is stable. 3. Large blood in the quadrigeminal and cerebellomedullary cisterns is slightly increased 4. Interval placement of a right frontal ventriculostomy catheter. Assessment: 1. Cerebellar Hemorrhage with craniotomy and ventriculostomy on 06/17/17: CTA head unremarkable for cause. Plan: - Brain MRI w/ and w/o con to evaluate or any underlying lesion to explain bleed - Blood pressure recommendation per neurosurgery - Avoid antiplatelet and anticoagulation until neurosurgery OK with using if needed - Recommend PT/OT/Speech for rehab needs Objective: Vital Signs Temp Pulse Resp BP Pulse Ox 38.3 C 73 23 H 117/43 L 91 L 06/19/17 12:00 06/19/17 12:00 06/19/17 12:00 06/19/17 12:00 06/19/17 12:00 Laboratory Results 06/18/17 03:40 06/18/17 03:40 06/18/17 06/19/17 06/20/17 05:59 05:59 05:59 Intake Total 2864 2087.2 150 Output Total 1148 1817 290 Balance 1716 270.2 -140 PT 13.1 SEC (12.0-15.0) 06/17/17 09:30 INR 0.97 (0.83-1.16) 06/17/17 09:30 Allergies/Adverse Reactions: No Known Allergies Allergy (Unverified 06/17/17 10:10)
[2017-06-19] MEDS: amLODIPine BESYLATE 5 MG TAB PO SCH (13:33)
--- NOTE | 2017-06-19 15:00 | ASMTCMCOM ---
CM Note CM Note Notes: Spoke with Jamie, patient's at length re: options at d/c. Jamie is going to go with the medical recommendation about any rehab patient may need. Jamie did inform me their insurance [employer] is expiring at the end of the year and rolling over to [employer]. Jamie would like to take his home for rehab but if patient needs to complete it here for medical stability, he is willing to do this. Jamie is interested in [facility] inpatient rehab program and Su Lovelace has been contacted. An informational packet on the program was given to Jamie. We discussed SNF rehab as well in the event patient isn't recovered enough to do inpatient. Jamie will tour [facility], [facility], and/ or [facility] to determine if any of these facilities will be acceptable to patient as a back up plan. If patient is able to travel, Jamie prefers to find a rehab facility in [place] close to home. CM will follow. Date Signed: 06/19/2017 02:59 PM Electronically Signed By:Mariah Johnson LCSW
[2017-06-19] MEDS ORDERED: METHOCARBAMOL 750 MG TAB PO SCH (15:15)
[2017-06-19] MEDS: LORazepam 2 MG/ML INJ IVP PRN (17:30)
[2017-06-19] MEDS: levETIRAcetam 500 MG in NS 100 ML IV SCH (18:10)
[2017-06-19] MEDS ORDERED: LISINOPRIL 10 MG TAB PO ONE (20:00)
[2017-06-19] MEDS: ACETAMINOPHEN 650 MG SUPP PR PRN (21:52)
[2017-06-19] MEDS: METHOCARBAMOL 750 MG TAB PO SCH (22:10)
[2017-06-20] MEDS: ENALAPRILAT DIHYDRATE 1.25 MG/ML VIAL IVP SCH ×3 (00:50→11:46)
[2017-06-20] MEDS: HYDROmorphONE/DILAUDID 1 MG/ML INJ IVP PRN ×2 (03:32→23:11)
[2017-06-20 05:25] LABS: % IMMATURE GRANULYOCYTES 0.7 % (0.0-1.1); ABSOLUTE IMMATURE GRANULOCYTES 0.08 10^3/uL (0.00-0.10); ADD DIFF? NO; ADD MORPH? NO; ADD SCAN? NO; ATYPICAL LYMPHOCYTE FLAG 10 (0-99); FRAGMENT RBC FLAG 0 (0-99); HEMATOCRIT 32.6 % (40.0-51.0); HEMOGLOBIN 11.1 g/dL (13.7-17.5); LEFT SHIFT FLG 0 (0-99); LIPEMIA HEMOLYSIS FLAG 90 (0-99); MEAN CELL HEMOGLOBIN 32.8 pg (27.9-34.1); MEAN CELL VOLUME 96.4 fL (81.5-99.8); MEAN PLATELET VOLUME 9.9 fL (8.7-11.7); PLATELET CLUMPS FLAG 0 (0-99); PLATELET COUNT 258 10^3/uL (150-400); RED BLOOD CELL COUNT 3.38 10^6/uL (4.40-6.38); RED CELL DISTRIBUTION WIDTH 12.6 % (11.5-15.2)
[2017-06-20 05:35] LABS: ANION GAP 9 mEq/L (8-16); CALCIUM 8.5 mg/dL (8.5-10.4); CARBON DIOXIDE 28 mEq/l (22-31); CHLORIDE 113 mEq/L (97-110); CREATININE 0.9 mg/dL (0.7-1.3); GLOMERULAR FILTRATION RATE > 60; GLUCOSE 115 mg/dL (70-100); MAGNESIUM 2.3 mg/dL (1.6-2.3); POTASSIUM 3.9 mEq/L (3.5-5.2); SODIUM 150 mEq/L (134-144)
--- NOTE | 2017-06-20 05:51 | NEUSURGPN ---
Date of Surgery: 06/17/17 Post Op Day: 3 Assessment/Plan: Assessment: 62 yr old s/p posterior fossa craniotomy for cerebellum hemorrhage and placement of right ventriculostomy drain POD #3 Plan: -Keep hob at 30-45 degrees -EVD open at 5 mmg, ICP 3 normally with occasional reading of 12 when agitated, draining about 7-13ml/hr -raise EVD to 10mmhg -Nicardipine ordered to keep SBP less than 130. Patient currently on, hydralzine ordered for prn, also on orals. Appreciate medicine input on blood pressure management. -PT/OT/ST to eval and treat -Post op CT head has some residual blood, will get MRI brain with/without when he can tolerate for further evaluation -Neurology consulted as well as critical care and IM-appreciate involvement and care with him -Discussed patient with Dr Ruiz -Please call neurosurgery with any questions/concerns Subjective: No new events overnight per RN. EVD in place and working. Objective: Slurred speech c/w hx Following commands x 4 PERRLA EOMI No droop 5/5 BUE, BLE Dressing CDI EVD site CDI and working well Neuro Check Frequency: per routine Urinary Catheter in Place: Yes Urinary Catheter Indication: Acute Urinary Retention Catheter Insertion Date: 06/18/17 - Physician Discussed Patient with Dr.: Kyle (Joseph) Patient Seen by Dr.: Other (Joseph) Neurosurgery Physical Exam - Vitals, I&O, Labs I and O 06/18/17 06/19/17 06/20/17 05:59 05:59 05:59 Intake Total 2864 2087.2 1150.1 Output Total 1148 1817 1053 Balance 1716 270.2 97.1 Weight 111 kg Intake: Oral (ml) 150 150 IV Intake (ml) 373 IV Infused (ml) 2864 1937.2 627.1 Dexmedetomidine in 0.9 % 38.3 74.1 NaCl 100 ml @ Per Protocol IV CONT MARIO Rx#: [id number] Famotidine 20 mg/NaCl 50 55 ml @ 200 mls/hr IV Q12HRS MARIO Rx#:[id number] NS W/ 20 KCl/L 1,000 ml @ 685 917.3 100 mls/hr IV CONT MARIO Rx#:[id number] ceFAZolin 1 GM/DEXTROSE 50 50 ml @ 200 mls/hr IV Q8H MARIO Rx#:[id number] niCARdipine 50 mg In Ns 926.6 553 250 ml @ Titrate IV CONT MARIO Rx#:[id number] niCARdipine/NACL 200 ml @ 1929 Titrate IV PRN PRN Rx#: [id number] Output: Urine (ml) 1060 1650 855 Catheter 1060 1085 855 Urinal 565 CSF Drainage Amount 88 167 198 Ventriculostomy 88 167 198 Vital Signs Temp Pulse Resp BP Pulse Ox 37.3 C 64 19 117/52 L 94 06/20/17 04:00 06/20/17 04:00 06/20/17 04:00 06/20/17 04:00 06/20/17 04:00 Laboratory Results 06/20/17 05:15 06/20/17 05:15 ICD10 Worksheet Patient Problems: Problems Problem Status Onset Acute cerebellar hemorrhage Acute
[2017-06-20] MEDS: METHOCARBAMOL 750 MG TAB PO SCH ×3 (06:29→22:43)
[2017-06-20] MEDS: INSULIN REGULAR HUMAN 100 UNIT/ML SC SCH ×4 (07:46→20:08)
[2017-06-20] MEDS: DEXMEDETOMIDINE IN 0.9 % NACL 100 ML IV SCH ×4 (07:47→21:24)
[2017-06-20] MEDS: amLODIPine BESYLATE 5 MG TAB PO SCH (08:54)
[2017-06-20] MEDS: LISINOPRIL 10 MG TAB PO SCH (08:54)
[2017-06-20] MEDS: FLUoxetine 20 MG CAP PO SCH (08:55)
[2017-06-20] MEDS: FAMOTIDINE 20 MG/NACL 50 ML IV SCH ×2 (08:55→20:07)
[2017-06-20] MEDS: SENNOSIDES/DOCUSATE SODIUM TAB PO SCH ×2 (08:55→20:12)
[2017-06-20] MEDS: LORazepam 2 MG/ML INJ IVP PRN (09:41)
--- NOTE | 2017-06-20 11:59 | PDINTPN ---
Pot Puller Progress Note Assessment/Plan: Assessment: S/P Cerebellar ICH: S/P Evacuation 06/17. Neurologically improving. HTN: None prior to admission. Now requiring Nicardipine and still with SBP at upper limit of preferred range. Hypokalemia: Resolved. Hyperglycemia: BSs down to low 100s Hypernatremia: Na climbing Plan: Increase PO CCB and ADENIKE-I. Use labatelol PRN, but have had low HR. Can try minoxidil or clonidine if still unable to control BP. Continue SSI. Will encourage PO fluids, start hypotonic fluids if unable to take enough PO. 06/20/17 12:03 Subjective: Feels OK, c/o persistent BARNES Objective: Vital Signs Temp Pulse Resp BP Pulse Ox 37.3 C 75 21 H 133/54 H 92 06/20/17 08:00 06/20/17 11:00 06/20/17 11:00 06/20/17 11:46 06/20/17 11:00 Laboratory Results 06/20/17 05:15 06/20/17 05:15 06/19/17 06/20/17 06/21/17 05:59 05:59 05:59 Intake Total 2087.2 2033.1 Output Total 1817 1296 125 Balance 270.2 737.1 -125 PT 13.1 SEC (12.0-15.0) 06/17/17 09:30 INR 0.97 (0.83-1.16) 06/17/17 09:30 CTH: Reduction in blood. Images reviewed by me. Physical Exam - Physical Exam General Appearance: alert, no apparent distress EENT: normal ENT inspection Neck: normal inspection Respiratory: lungs clear, normal breath sounds Cardiac/Chest: regular rate, rhythm, No edema Abdomen: normal bowel sounds, non-tender Skin: normal color, warm/dry Extremities: non-tender Neuro/Psych: alert, oriented x 3, No motor weakness ICD10 Worksheet Patient Problems: Problems Problem Status Onset Acute cerebellar hemorrhage Acute
[2017-06-20] MEDS ORDERED: LORazepam 2 MG/ML INJ IVP ONE (12:00)
[2017-06-20] MEDS ORDERED: amLODIPine BESYLATE 5 MG TAB PO ONE (12:00)
[2017-06-20] MEDS: levETIRAcetam 500 MG in NS 100 ML IV SCH (12:03)
--- NOTE | 2017-06-20 13:36 | NEUROPROG ---
Assessment: [id number] CC: F/U for infratentorial hemorrhage. Narrative Summary: Pt admitted to [facility] on 06/17/17 for intracerebral hemorrhage. He developed a sudden onset severe headache day of admission with associated N/V and slurred speech. Head CT showed a hemorrhage in the cerebellum. Neurosurgery performed a decompressive craniotomy and ventriculostomy to address. I initially saw the patient on 06/19/17. He was very sedated and his speech was dysarthric. Keppra 500 mg bid added or shaking spell (sz vs sequelae from brain hemorrhage). HPI: F/U 06/20/17 in inpt setting. No further shaking spells since starting Keppra. Pt still confused with dysarthric speech but appears more awake today moving all 4 extrem and trying to get up. Brain MRI pending. PMHx: hernia repair, tonsillectomy SHx: no tobacco FHx: no pertinent neurosurgical history Rads: 06/17/17- Head CT: acute intraparenchymal hemorrhage involving cerebellar vermis w/ tonsillar herniation. 06/17/17- Head CTA: Normal CT angiography of the head with attention to the great vessels of the [place]. No vascular abnormality is seen to explain posterior fossa hemorrhage. 06/17/17- Head CT: 1. Interval posterior fossa craniotomy with partial evacuation of the previously described vermian hematoma. There is persistent, though probably decreased, herniation of the cerebellar tonsils. 2. More extensive intraventricular hemorrhage involving the lateral and third ventricle. Hemorrhage in the fourth ventricle is stable. 3. Large blood in the quadrigeminal and cerebellomedullary cisterns is slightly increased 4. Interval placement of a right frontal ventriculostomy catheter. Assessment: 1. Cerebellar Hemorrhage with craniotomy and ventriculostomy on 06/17/17: CTA head unremarkable for cause. Plan: - Brain MRI w/ and w/o con to evaluate or any underlying lesion to explain bleed - Blood pressure recommendation per neurosurgery - Avoid antiplatelet and anticoagulation until neurosurgery OK with using if needed - Recommend PT/OT/Speech for rehab needs 35 min spent with patient and his partner, majority of time spent counseling on prognosis and expected outcome. Objective: Vital Signs Temp Pulse Resp BP Pulse Ox 37.3 C 77 23 H 126/50 H 92 06/20/17 08:00 06/20/17 13:00 06/20/17 13:00 06/20/17 13:00 06/20/17 13:00 Laboratory Results 06/20/17 05:15 06/20/17 05:15 06/19/17 06/20/17 06/21/17 05:59 05:59 05:59 Intake Total 2087.2 2033.1 Output Total 1817 1296 445 Balance 270.2 737.1 -445 PT 13.1 SEC (12.0-15.0) 06/17/17 09:30 INR 0.97 (0.83-1.16) 06/17/17 09:30 Allergies/Adverse Reactions: No Known Allergies Allergy (Unverified 06/17/17 10:10)
[2017-06-20] MEDS: POTASSIUM Cl (KCl) 10 MEQ in D5W 1/2 NS 1,000 ML IV SCH (16:47)
[2017-06-20] MEDS: LABETALOL HCL 5 MG/ML 20 ML MDV IVP PRN (19:41)
[2017-06-20] MEDS: ACETAMINOPHEN 650 MG SUPP PR PRN (20:00)
[2017-06-21] MEDS: HYDROmorphONE/DILAUDID 1 MG/ML INJ IVP PRN ×4 (00:27→11:53)
[2017-06-21] MEDS: POTASSIUM Cl (KCl) 10 MEQ in D5W 1/2 NS 1,000 ML IV SCH ×2 (04:35→20:25)
[2017-06-21] MEDS: METHOCARBAMOL 750 MG TAB PO SCH ×3 (04:45→21:04)
[2017-06-21 04:51] LABS: ANION GAP 10 mEq/L (8-16); CALCIUM 8.2 mg/dL (8.5-10.4); CARBON DIOXIDE 27 mEq/l (22-31); CHLORIDE 117 mEq/L (97-110); CREATININE 0.8 mg/dL (0.7-1.3); GLOMERULAR FILTRATION RATE > 60; GLUCOSE 125 mg/dL (70-100); POTASSIUM 3.7 mEq/L (3.5-5.2); SODIUM 154 mEq/L (134-144)
--- NOTE | 2017-06-21 06:54 | NEUSURGPN ---
Date of Surgery: 06/17/17 Post Op Day: 4 Assessment/Plan: Assessment: 62 yr old s/p posterior fossa craniotomy for cerebellar hemorrhage and placement of right ventriculostomy drain POD #4 Plan: -Keep hob at 30-45 degrees -EVD open at 10 mmhg yesterday and tolerated. Dr Ruiz wants it clamped today and recheck CT in am -repeat CT in am -ICP 6-11 -Nicardipine ordered to keep SBP less than 130. Patient currently on, hydralzine ordered for prn, also on orals. Appreciate medicine input on blood pressure management. -PT/OT/ST to eval and treat -Post op CT head has some residual blood, will get MRI brain with/without when he can tolerate for further evaluation -Neurology consulted as well as critical care and IM-appreciate involvement and care with him -Discussed patient with Dr Ruiz -Please call neurosurgery with any questions/concerns Subjective: Awake and alert to verbal. Garbled speech. Follows commands. No new events overnight. Objective: Slurred speech c/w hx Following commands x 4-more cooperative this am PERRLA EOMI No droop 5/5 BUE, BLE Dressing CDI EVD site CDI and working well-clamped now Neuro Check Frequency: per routine Urinary Catheter in Place: Yes Urinary Catheter Indication: Other (Use Comment) (unable to ambulate, confusion) Catheter Insertion Date: 06/18/17 - Physician Discussed Patient with Dr.: Other (Joseph) Neurosurgery Physical Exam - Vitals, I&O, Labs I and O 06/20/17 06/21/17 06/22/17 05:59 05:59 05:59 Intake Total 2033.1 3305.9 Output Total 1296 2089 Balance 737.1 1216.9 Weight 107.5 kg 107 kg Intake: Oral (ml) 150 250 IV Intake (ml) 748 500 IV Infused (ml) 1135.1 2555.9 Dexmedetomidine in 0.9 % 202.1 534.7 NaCl 100 ml @ Per Protocol IV CONT MARIO Rx#: [id number] Famotidine 20 mg/NaCl 50 52 ml @ 200 mls/hr IV Q12HRS MARIO Rx#:[id number] POTASSIUM Cl (KCl) 10 meq 891.4 In D5w 1/2 Ns 1,000 ml @ 75 mls/hr IV CONT MARIO Rx #:[id number] niCARdipine 50 mg In Ns 933 1077.8 250 ml @ Titrate IV CONT MARIO Rx#:[id number] Output: Urine (ml) 1090 1976 Catheter 1090 1976 CSF Drainage Amount 206 112 Ventriculostomy 206 112 Vital Signs Temp Pulse Resp BP Pulse Ox 36.5 C 62 15 144/62 H 91 L 06/21/17 04:00 06/21/17 05:54 06/21/17 05:54 06/21/17 05:54 06/21/17 05:54 Laboratory Results 06/20/17 05:15 06/21/17 04:20 ICD10 Worksheet Patient Problems: Problems Problem Status Onset Acute cerebellar hemorrhage Acute
[2017-06-21] MEDS: FAMOTIDINE 20 MG/NACL 50 ML IV SCH ×2 (08:19→20:25)
[2017-06-21] MEDS: DEXMEDETOMIDINE IN 0.9 % NACL 100 ML IV SCH ×4 (08:21→22:59)
[2017-06-21] MEDS: INSULIN REGULAR HUMAN 100 UNIT/ML SC SCH ×4 (08:30→20:46)
[2017-06-21] MEDS: levETIRAcetam 500 MG in NS 100 ML IV SCH ×3 (08:54→21:04)
[2017-06-21] MEDS: amLODIPine BESYLATE 5 MG TAB PO SCH (11:09)
--- NOTE | 2017-06-21 11:15 | PDINTPN ---
Roundhouse Firer/Fireman Progress Note Assessment/Plan: Assessment: S/P Cerebellar ICH: S/P Evacuation 06/17. Neurologically improving. HTN: None prior to admission. Now requiring Nicardipine and still with SBP at upper limit of preferred range. Unable to safely take PO, so PO anti-HTN meds held this morning. On Nicardipine IV. Hypokalemia: Resolved. Hyperglycemia: BSs down to low 100s Hypernatremia: Na climbing, now 154 today Plan: Place feeding tube. Continue PO CCB and ADENIKE-I on feeding tube placed. Use labatelol PRN, but have had low HR. Can try minoxidil or clonidine if still unable to control BP. Wean down on nicardipine. Continue SSI. Will start TF with free H2O to address hypernatremia. 06/21/17 11:18 Subjective: A bit less responsive, ? due to IV pain medications for BARNES. Objective: Vital Signs Temp Pulse Resp BP Pulse Ox 36.7 C 88 20 128/49 H 92 06/21/17 07:00 06/21/17 11:00 06/21/17 11:00 06/21/17 11:00 06/21/17 11:00 Laboratory Results 06/20/17 05:15 06/21/17 04:20 06/20/17 06/21/17 06/22/17 05:59 05:59 05:59 Intake Total 2033.1 3305.9 Output Total 1296 2089 0 Balance 737.1 1216.9 0 PT 13.1 SEC (12.0-15.0) 06/17/17 09:30 INR 0.97 (0.83-1.16) 06/17/17 09:30 CTH: Stable. Images reviewed by me. Physical Exam - Physical Exam General Appearance: no apparent distress, No alert EENT: other, No normal ENT inspection (p posterior craniotomy) Neck: normal inspection Respiratory: lungs clear, No normal breath sounds Cardiac/Chest: normal peripheral pulses, regular rate, rhythm, No edema Abdomen: normal bowel sounds, non-tender Skin: normal color, warm/dry Extremities: normal inspection Neuro/Psych: No alert, No oriented x 3, No motor weakness ICD10 Worksheet Patient Problems: Problems Problem Status Onset Acute cerebellar hemorrhage Acute
[2017-06-21] MEDS ORDERED: LIDOCAINE 2% JELLY 20 ML (UROJECT) ONE (12:06)
[2017-06-21] MEDS: FLUoxetine 20 MG CAP PO SCH (13:05)
[2017-06-21] MEDS: LISINOPRIL 10 MG TAB PO SCH (13:05)
[2017-06-21] MEDS: SENNOSIDES/DOCUSATE SODIUM TAB PO SCH ×2 (13:05→20:26)
--- NOTE | 2017-06-21 13:28 | NEUROPROG ---
Assessment: [id number] CC: F/U for infratentorial hemorrhage. Narrative Summary: Pt admitted to [facility] on 06/17/17 for intracerebral hemorrhage. He developed a sudden onset severe headache day of admission with associated N/V and slurred speech. Head CT showed a hemorrhage in the cerebellum. Neurosurgery performed a decompressive craniotomy and ventriculostomy to address. I initially saw the patient on 06/19/17. He was very sedated and his speech was dysarthric. Keppra 500 mg bid added or shaking spell (sz vs sequelae from brain hemorrhage). F/U 06/20/17 in inpt setting. No further shaking spells since starting Keppra. Pt still confused with dysarthric speech but appears more awake today moving all 4 extrem and trying to get up. Brain MRI pending. HPI: F/U 06/21/17 in the inpt setting. Brain MRI still pending. No new major complaints. His partner feels he is stable. Pt having a GI tube placed. PMHx: hernia repair, tonsillectomy SHx: no tobacco FHx: no pertinent neurosurgical history ROS: No acute fever, total vision loss, active severe chest pain, respiratory failure, total body severe rash, total bowel/bladder incontinence, psychosis, active seizures, or active bleeding Labs: 06/21/17- K 3.7 Rads: 06/17/17- Head CT: acute intraparenchymal hemorrhage involving cerebellar vermis w/ tonsillar herniation. 06/17/17- Head CTA: Normal CT angiography of the head with attention to the great vessels of the makah of [place]. No vascular abnormality is seen to explain posterior fossa hemorrhage. 06/17/17- Head CT: 1. Interval posterior fossa craniotomy with partial evacuation of the previously described vermian hematoma. There is persistent, though probably decreased, herniation of the cerebellar tonsils. 2. More extensive intraventricular hemorrhage involving the lateral and third ventricle. Hemorrhage in the fourth ventricle is stable. 3. Large blood in the quadrigeminal and cerebellomedullary cisterns is slightly increased 4. Interval placement of a right frontal ventriculostomy catheter. Assessment: 1. Cerebellar Hemorrhage with craniotomy and ventriculostomy on 06/17/17: CTA head unremarkable for cause. Plan: - Brain MRI w/ and w/o con to evaluate or any underlying lesion to explain bleed - Blood pressure recommendation per neurosurgery - Avoid antiplatelet and anticoagulation until neurosurgery OK with using if needed - Recommend PT/OT/Speech for rehab needs Neurology will sign off but will become reinvolved if needed. Please call when brain MRI is completed if there are any questions or any change in neurologic status. Objective: Vital Signs Temp Pulse Resp BP Pulse Ox 36.7 C 78 16 137/74 H 93 06/21/17 12:00 06/21/17 13:00 06/21/17 13:00 06/21/17 13:06 06/21/17 13:00 Laboratory Results 06/20/17 05:15 06/21/17 04:20 06/20/17 06/21/17 06/22/17 05:59 05:59 05:59 Intake Total 2033.1 3305.9 Output Total 1296 2089 0 Balance 737.1 1216.9 0 PT 13.1 SEC (12.0-15.0) 06/17/17 09:30 INR 0.97 (0.83-1.16) 06/17/17 09:30 Allergies/Adverse Reactions: No Known Allergies Allergy (Unverified 06/17/17 10:10)
[2017-06-21] MEDS: hydrALAZINE 20 MG/ML VIAL IVP PRN (16:07)
[2017-06-21] MEDS: oxyCODONE IR 5 MG TAB PO PRN (16:14)
[2017-06-21] MEDS: ACETAMINOPHEN 650 MG/20.3 ML UDCUP TUBE PRN (19:39)
[2017-06-22] MEDS: DEXMEDETOMIDINE IN 0.9 % NACL 100 ML IV SCH ×5 (03:51→22:31)
[2017-06-22] MEDS: HYDROmorphONE/DILAUDID 1 MG/ML INJ IVP PRN ×2 (05:24→13:46)
[2017-06-22] MEDS: METHOCARBAMOL 750 MG TAB PO SCH (06:04)
[2017-06-22] MEDS: ACETAMINOPHEN 650 MG/20.3 ML UDCUP TUBE PRN ×3 (07:36→20:20)
[2017-06-22] MEDS: oxyCODONE IR 5 MG TAB PO PRN (07:37)
[2017-06-22] MEDS: FAMOTIDINE 20 MG/NACL 50 ML IV SCH (08:20)
[2017-06-22] MEDS: FLUoxetine 20 MG CAP PO SCH (08:26)
[2017-06-22] MEDS: LISINOPRIL 10 MG TAB PO SCH (08:26)
[2017-06-22] MEDS: SENNOSIDES/DOCUSATE SODIUM TAB PO SCH (08:26)
[2017-06-22] MEDS: levETIRAcetam 500 MG in NS 100 ML IV SCH (08:27)
--- NOTE | 2017-06-22 09:25 | NEUSURGPN ---
Assessment/Plan: Assessment: 62 yr old s/p posterior fossa craniotomy for cerebellar hemorrhage and placement of right ventriculostomy drain POD #5 Plan: -Keep hob at 30-45 degrees -EVD clamped. HCT okay, will recheck CT in am. If stable and no sings of hydrocephalus will likely d/c ventric tomorrow. -ICP 8-15 -Nicardipine ordered to keep SBP less than 130. Patient currently on, hydralzine ordered for prn, also on orals. Appreciate medicine input on blood pressure management. -PT/OT/ST to eval and treat -Neurology consulted as well as critical care and IM-appreciate involvement and care with him -Discussed patient with Dr Ruiz -Please call neurosurgery with any questions/concerns Subjective: Unable to obtain Objective: MAEx4 spontaneously. Not following commands. Grabbled speech PERRLA. ventric clamp, site c/d/i Catheter Insertion Date: 06/18/17 - Physician Discussed Patient with Dr.: Other (Joseph) Neurosurgery Physical Exam - Vitals, I&O, Labs I and O 06/21/17 06/22/17 06/23/17 05:59 05:59 05:59 Intake Total 3305.9 4312 40 Output Total 2089 1700 0 Balance 1216.9 2612 40 Weight 107 kg Intake: Oral (ml) 250 IV Intake (ml) 500 173 IV Infused (ml) 2555.9 3376 Dexmedetomidine in 0.9 % 534.7 439 NaCl 100 ml @ Per Protocol IV CONT MARIO Rx#: [id number] Famotidine 20 mg/NaCl 50 52 ml @ 200 mls/hr IV Q12HRS MARIO Rx#:[id number] POTASSIUM Cl (KCl) 10 meq 891.4 1738 In D5w 1/2 Ns 1,000 ml @ 75 mls/hr IV CONT MARIO Rx #:[id number] niCARdipine 50 mg In Ns 1077.8 1199 250 ml @ Titrate IV CONT MARIO Rx#:[id number] Tube Feeding (ml) 483 Tube Flush (ml) 280 40 Output: Urine (ml) 1976 1699 Catheter 1976 1700 CSF Drainage Amount 112 0 0 Ventriculostomy 112 0 0 Vital Signs Temp Pulse Resp BP Pulse Ox 37.1 C 54 L 12 134/59 H 92 06/22/17 07:00 06/22/17 09:00 06/22/17 09:00 06/22/17 09:00 06/22/17 09:00 Laboratory Results 06/20/17 05:15 06/21/17 04:20 ICD10 Worksheet Patient Problems: Problems Problem Status Onset Acute cerebellar hemorrhage Acute
[2017-06-22] MEDS: INSULIN REGULAR HUMAN 100 UNIT/ML SC SCH (09:34)
[2017-06-22] MEDS: hydrALAZINE 20 MG/ML VIAL IVP PRN ×4 (11:25→19:47)
[2017-06-22] MEDS ORDERED: LACTULOSE 20 GM/30 ML UDCUP TUBE PRN (11:30)
[2017-06-22] MEDS ORDERED: oxyCODONE IR 5 MG TAB TUBE PRN (11:30)
[2017-06-22] MEDS ORDERED: MAGNESIUM HYDROXIDE 30 ML UDCUP TUBE PRN (11:30)
[2017-06-22 11:58] LABS: % IMMATURE GRANULYOCYTES 0.8 % (0.0-1.1); ABSOLUTE IMMATURE GRANULOCYTES 0.07 10^3/uL (0.00-0.10); ADD DIFF? NO; ADD MORPH? NO; ADD SCAN? NO; ATYPICAL LYMPHOCYTE FLAG 0 (0-99); FRAGMENT RBC FLAG 0 (0-99); HEMOGLOBIN 12.1 g/dL (13.7-17.5); LEFT SHIFT FLG 0 (0-99); LIPEMIA HEMOLYSIS FLAG 80 (0-99); MEAN CELL HEMOGLOBIN 31.6 pg (27.9-34.1); MEAN CELL HEMOGLOBIN CONCENTR. 33.6 g/dL (32.4-36.7); MEAN PLATELET VOLUME 9.6 fL (8.7-11.7); PLATELET CLUMPS FLAG 20 (0-99); PLATELET COUNT 346 10^3/uL (150-400); RED BLOOD CELL COUNT 3.83 10^6/uL (4.40-6.38); RED CELL DISTRIBUTION WIDTH 12.1 % (11.5-15.2)
[2017-06-22] MEDS ORDERED: INSULIN REGULAR HUMAN 100 UNIT/ML SC SCH (12:00)
[2017-06-22 12:08] LABS: ANION GAP 11 mEq/L (8-16); CALCIUM 8.3 mg/dL (8.5-10.4); CARBON DIOXIDE 24 mEq/l (22-31); CHLORIDE 116 mEq/L (97-110); CREATININE 0.9 mg/dL (0.7-1.3); GLOMERULAR FILTRATION RATE > 60; GLUCOSE 146 mg/dL (70-100); POTASSIUM 3.7 mEq/L (3.5-5.2); SODIUM 151 mEq/L (134-144)
[2017-06-22] MEDS: POTASSIUM Cl (KCl) 10 MEQ in D5W 1/2 NS 1,000 ML IV SCH (12:38)
[2017-06-22] MEDS: METHOCARBAMOL 750 MG TAB TUBE SCH ×2 (13:21→22:31)
[2017-06-22] MEDS: POTASSIUM Cl (KCl) 20 MEQ, SODIUM CL 14.6% 38.5 MEQ in WATER FOR INJECTION,STERILE 1,00... IV SCH (14:35)
--- NOTE | 2017-06-22 14:56 | ASMTCMCOM ---
CM Note CM Note Notes: Met with patient's , Jamie who is leaning towards staying in [place] so that patient can go to [facility] In-pt Rehab. Jamie had questions about: how long patient might be in In-pt?; When they return to [place], would pt go to a SNF Rehab or Out-pt?; What happens at the beginning of the year when their ins changes from [employer] to [employer]? all great questions. Jamie to visit In-pt Rehab this week, many of those questions would be better answered when he meets with Admissions. Jamie and patient are [employer]reg[employer]. Jamie would like to participate in as much support at [facility] as is available. He is meeting with a Accounts Payable Analyst who is [employer]reg[employer] and would like to have a Family Mtg Thursday 12:00. Date Signed: 06/22/2017 02:56 PM Electronically Signed By:Christina Worrell LCSW
[2017-06-22] MEDS: oxyCODONE ORAL SOLUTION 10 MG/0.5 ML UDSYR TUBE PRN ×2 (15:43→19:47)
--- NOTE | 2017-06-22 17:33 | PDINTPN ---
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 Hypertensive after admission but no history of hypertension prior to this event. From [place]. S/P Cerebellar ICH: S/P Evacuation 06/17. Neurologically improving, but remains somnolent, confused and impulsive at times. HTN: None prior to admission. Now requiring Nicardipine and still with SBP at upper limit of preferred range. Unable to safely take POs. On Nicardipine IV and p.r.n. labetalol and hydralazine, along with scheduled amlodipine and lisinopril. Hypokalemia: Resolved. Hyperglycemia: BSs down to low/mid 100s Hypernatremia: Na stable, 151 today DVT prophylaxis: SCDs, mobilization as tolerated Disposition: He will need neuro rehabilitation after discharge from the hospital. This can be done at [facility] on inpatient rehab. If long-term, he may need transport back to the [place] area to accomplish this. Plan: Continue antihypertensive treatments. Blood pressure medications adjusted, lisinopril increased. Wean down on nicardipine if possible. Continue SSI. Continue tube feedings with free H2O to address hypernatremia. Follow laboratory, sodium. Continue crease blood sugar checks to twice a day. Continue PT/OT/ST. For repeat CT scan of the head tomorrow per neuro surgery. 35 min of critical care time spent directly with the patient. Discussed with the patient's significant other, nursing, social work nurse, and the ICU multi disciplinary team. Objective: Vital Signs Temp Pulse Resp BP Pulse Ox 37.3 C 58 L 12 153/47 H 94 06/22/17 16:30 06/22/17 16:54 06/22/17 16:54 06/22/17 17:13 06/22/17 16:54 Laboratory Results 06/22/17 11:45 06/22/17 11:45 06/21/17 06/22/17 06/23/17 05:59 05:59 05:59 Intake Total 3305.9 4312 620 Output Total 2089 1700 1250 Balance 1216.9 2612 -630 PT 13.1 SEC (12.0-15.0) 06/17/17 09:30 INR 0.97 (0.83-1.16) 06/17/17 09:30 Physical Exam - Physical Exam General Appearance: other (Somnolent, arouses. No acute distress) EENT: PERRL/EOMI, other (Nasal cannula 2 L: 96%) Neck: normal inspection (No JVD) Respiratory: lungs clear Cardiac/Chest: regular rate, rhythm (to bradycardic, sinus) Abdomen: normal bowel sounds, non-tender, soft, other (Feeding tube in place) Male Genitalia: other (Nicole catheter in place, good urine output but input greater than output over the last several days.) Skin: normal color, warm/dry Extremities: No pedal edema Neuro/Psych: no motor/sensory deficits (Moves all extremities, cerebellar function not tested), cognition abnormalities (Somnolent) ICD10 Worksheet Patient Problems: Problems Problem Status Onset Acute cerebellar hemorrhage Acute
[2017-06-22] MEDS: LISINOPRIL 20 MG TAB PO SCH (20:20)
[2017-06-22] MEDS: levETIRAcetam 500 MG/5 ML UDCUP TUBE SCH (20:20)
[2017-06-22] MEDS: SENNOSIDES 17.6 MG/10 ML UDL TUBE SCH (20:20)
[2017-06-23] MEDS: ACETAMINOPHEN 650 MG/20.3 ML UDCUP TUBE PRN ×4 (00:06→15:47)
[2017-06-23] MEDS: oxyCODONE ORAL SOLUTION 10 MG/0.5 ML UDSYR TUBE PRN ×4 (00:50→22:57)
[2017-06-23] MEDS: DEXMEDETOMIDINE IN 0.9 % NACL 100 ML IV SCH ×4 (00:50→13:00)
[2017-06-23] MEDS: HYDROmorphONE/DILAUDID 1 MG/ML INJ IVP PRN (05:33)
[2017-06-23] MEDS: METHOCARBAMOL 750 MG TAB TUBE SCH ×3 (05:50→21:18)
[2017-06-23 05:51] LABS: ANION GAP 10 mEq/L (8-16); CALCIUM 8.1 mg/dL (8.5-10.4); CARBON DIOXIDE 26 mEq/l (22-31); CHLORIDE 114 mEq/L (97-110); CREATININE 0.8 mg/dL (0.7-1.3); GLOMERULAR FILTRATION RATE > 60; GLUCOSE 159 mg/dL (70-100); MAGNESIUM 2.1 mg/dL (1.6-2.3); POTASSIUM 3.7 mEq/L (3.5-5.2); SODIUM 150 mEq/L (134-144)
[2017-06-23 05:57] LABS: ABSOLUTE IMMATURE GRANULOCYTES 0.08 10^3/uL (0.00-0.10); ADD DIFF? NO; ADD MORPH? NO; ADD SCAN? NO; ATYPICAL LYMPHOCYTE FLAG 0 (0-99); FRAGMENT RBC FLAG 0 (0-99); HEMATOCRIT 34.5 % (40.0-51.0); HEMOGLOBIN 11.9 g/dL (13.7-17.5); LEFT SHIFT FLG 10 (0-99); LIPEMIA HEMOLYSIS FLAG 90 (0-99); MEAN CELL HEMOGLOBIN 32.3 pg (27.9-34.1); MEAN CELL HEMOGLOBIN CONCENTR. 34.5 g/dL (32.4-36.7); MEAN CELL VOLUME 93.8 fL (81.5-99.8); MEAN PLATELET VOLUME 9.7 fL (8.7-11.7); PLATELET CLUMPS FLAG 40 (0-99); PLATELET COUNT 325 10^3/uL (150-400); RED BLOOD CELL COUNT 3.68 10^6/uL (4.40-6.38); RED CELL DISTRIBUTION WIDTH 12.3 % (11.5-15.2)
--- NOTE | 2017-06-23 08:11 | NEUSURGPN ---
Date of Surgery: 06/17/17 Post Op Day: 6 Assessment/Plan: Assessment: 62 yr old s/p posterior fossa craniotomy for cerebellar hemorrhage and placement of right ventriculostomy drain POD #6 Plan: -Keep hob at 30-45 degrees -EVD clamped. HCT okay yesterday and today -films and pt reviewed with Dr Ruiz and ok for dc of EVD -pt is not on blood thinner, PLTS fine -area cleaned x 3 with chlorhexadine and securing stitch removed, figure 8 3-0 prolene was placed simultaneously while pulling EVD-drain removed smoothly, stitch placed to a water tight closure -ICPs stable prior to removal -Nicardipine ordered to keep SBP less than 130. Patient currently on hydralzine ordered for prn, also on orals. Appreciate medicine input on blood pressure management. -PT/OT/ST to eval and treat -Neurology consulted as well as critical care and IM-appreciate involvement and care with him -Discussed patient with Dr Ruiz -Please call neurosurgery with any questions/concerns Subjective: No new events or concerns. No issues overnight. Objective: awake to verbal MAEx4 spontaneously. Duco Polisher bilaterally. Grabbled speech PERRLA. site c/d/i Neuro Check Frequency: per routine Urinary Catheter in Place: Yes Urinary Catheter Indication: Other (Use Comment) (not ambulating) Catheter Insertion Date: 06/18/17 - Physician Discussed Patient with Dr.: Other (Joseph) Neurosurgery Physical Exam - Vitals, I&O, Labs I and O 06/22/17 06/23/17 06/24/17 05:59 05:59 05:59 Intake Total 4312 4115 Output Total 1700 3650 Balance 2612 465 Weight 111 kg Intake: IV Intake (ml) 173 235 IV Infused (ml) 3376 1965 Dexmedetomidine in 0.9 % 439 534 NaCl 100 ml @ Per Protocol IV CONT MARIO Rx#: [id number] POTASSIUM Cl (KCl) 10 meq 1738 345 In D5w 1/2 Ns 1,000 ml @ 75 mls/hr IV CONT MARIO Rx #:[id number] POTASSIUM Cl (KCl) 20 meq 714 Sodium Cl 14.6% 38.5 meq In Water For Injection, Sterile 1,000 ml @ 50 mls /hr IV CONT MARIO Rx#: [id number] niCARdipine 50 mg In Ns 1199 372 250 ml @ Titrate IV CONT MARIO Rx#:[id number] Tube Feeding (ml) 483 1550 Tube Flush (ml) 280 365 Output: Urine (ml) 1700 3650 Catheter 1700 3650 CSF Drainage Amount 0 0 Ventriculostomy 0 0 Other: Number of Stools Catheter 0 Vital Signs Temp Pulse Resp BP Pulse Ox 36.8 C 36 L 10 L 120/87 H 97 06/23/17 00:00 06/23/17 06:39 06/23/17 06:00 06/23/17 06:00 06/23/17 06:00 Laboratory Results 06/23/17 04:10 06/23/17 04:10 ICD10 Worksheet Patient Problems: Problems Problem Status Onset Acute cerebellar hemorrhage Acute
[2017-06-23] MEDS: FLUoxetine 20 MG CAP TUBE SCH (08:21)
[2017-06-23] MEDS: SENNOSIDES 17.6 MG/10 ML UDL TUBE SCH ×2 (08:21→20:41)
[2017-06-23] MEDS: LISINOPRIL 20 MG TAB PO SCH ×2 (08:21→20:40)
[2017-06-23] MEDS: levETIRAcetam 500 MG/5 ML UDCUP TUBE SCH ×2 (08:21→20:40)
[2017-06-23] MEDS: POTASSIUM Cl (KCl) 20 MEQ, SODIUM CL 14.6% 38.5 MEQ in WATER FOR INJECTION,STERILE 1,00... IV SCH (08:24)
[2017-06-23] MEDS ORDERED: LISINOPRIL 10 MG TAB TUBE SCH (09:00)
[2017-06-23] MEDS: LORazepam 2 MG/ML INJ IVP PRN ×2 (11:47→16:33)
[2017-06-23] MEDS: hydrALAZINE 20 MG/ML VIAL IVP PRN (16:06)
--- NOTE | 2017-06-23 16:15 | PDINTPN ---
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 Hypertensive after admission but no history of hypertension prior to this event. From [place]. S/P Cerebellar ICH: S/P Evacuation 06/17. Neurologically improving, less somnolent, starting to respond but remains confused and impulsive at times. HTN: None prior to admission. Now requiring Nicardipine with SBP at upper limit of preferred range. Unable to safely take POs. On Nicardipine IV and p.r.n. labetalol and hydralazine, along with scheduled amlodipine and lisinopril. Will add clonidine patch. Hypokalemia: Resolved. Hyperglycemia: BSs down to low/mid 100s Hypernatremia: Na stable, 150 today DVT prophylaxis: SCDs, mobilization as tolerated Disposition: He will need neuro rehabilitation after discharge from the hospital. This can be done at [facility] on inpatient rehab. If long-term, he may need transport back to the [place] area to accomplish this. Plan: Continue antihypertensive treatments with the addition of clonidine patch. Continue to try and wean down on nicardipine if possible. Continue SSI. Continue tube feedings with free H2O to address hypernatremia. Follow laboratory, sodium. Continue blood sugar checks to twice a day. Continue PT/OT /ST. 30 min of critical care time spent directly with the patient. Discussed with the patient's significant other, nursing, web content & social media manager, and the ICU multi disciplinary team. Subjective: More alert today. Trying to say his 1st name when asked. Respond appropriately to simple questions with yes and no. Restless, confused at times Objective: Vital Signs Temp Pulse Resp BP Pulse Ox 37.1 C 91 16 159/68 H 94 06/23/17 16:00 06/23/17 16:00 06/23/17 16:00 06/23/17 16:06 06/23/17 16:00 Laboratory Results 06/23/17 04:10 06/23/17 04:10 06/22/17 06/23/17 06/24/17 05:59 05:59 05:59 Intake Total 4312 4115 251 Output Total 1700 3650 1250 Balance 2612 465 -999 PT 13.1 SEC (12.0-15.0) 06/17/17 09:30 INR 0.97 (0.83-1.16) 06/17/17 09:30 Physical Exam - Physical Exam General Appearance: alert, mild distress (Restless at times, confused, forgetful ) EENT: other (On room air, saturations in the low 100s.), No normal ENT inspection (Ventric out) Neck: normal inspection Respiratory: lungs clear, decreased breath sounds (At bases), No rhonchi Cardiac/Chest: regular rate, rhythm, bradycardia Abdomen: normal bowel sounds, non-tender, soft, other (Tolerating tube feedings) Male Genitalia: other (Nicole catheter in place, adequate urine output) Skin: normal color, warm/dry Extremities: No pedal edema Neuro/Psych: no motor/sensory deficits (Moves all extremities weakly), cognition abnormalities (Improving) ICD10 Worksheet Patient Problems: Problems Problem Status Onset Acute cerebellar hemorrhage Acute
[2017-06-23] MEDS: LABETALOL HCL 5 MG/ML 20 ML MDV IVP PRN (16:44)
[2017-06-23] MEDS ORDERED: BIOTENE DRY MOUTH MOUTHWASH 237 ML BTL MM PRN (20:34)
[2017-06-23] MEDS: hydrALAZINE 25 MG TAB PO SCH (20:40)
[2017-06-24] MEDS: ORAL BALANCE GEL TUBE PO PRN ×2 (01:18→21:39)
[2017-06-24] MEDS: LABETALOL HCL 5 MG/ML 20 ML MDV IVP PRN (01:19)
[2017-06-24] MEDS: DEXMEDETOMIDINE IN 0.9 % NACL 100 ML IV SCH ×4 (02:12→21:15)
[2017-06-24] MEDS: POTASSIUM Cl (KCl) 20 MEQ, SODIUM CL 14.6% 38.5 MEQ in WATER FOR INJECTION,STERILE 1,00... IV SCH (02:57)
[2017-06-24 04:57] LABS: ANION GAP 12 mEq/L (8-16); CALCIUM 8.4 mg/dL (8.5-10.4); CARBON DIOXIDE 28 mEq/l (22-31); CHLORIDE 106 mEq/L (97-110); CREATININE 0.7 mg/dL (0.7-1.3); GLOMERULAR FILTRATION RATE > 60; GLUCOSE 122 mg/dL (70-100); MAGNESIUM 2.1 mg/dL (1.6-2.3); POTASSIUM 3.8 mEq/L (3.5-5.2); SODIUM 146 mEq/L (134-144)
[2017-06-24] MEDS: hydrALAZINE 25 MG TAB PO SCH ×4 (05:07→21:13)
[2017-06-24] MEDS: METHOCARBAMOL 750 MG TAB TUBE SCH ×2 (05:07→14:25)
--- NOTE | 2017-06-24 07:08 | NEUSURGPN ---
Date of Surgery: 06/17/17 Post Op Day: 7 Assessment/Plan: Assessment: 62 yr old s/p posterior fossa craniotomy for cerebellar hemorrhage and placement of right ventriculostomy drain POD #7 Plan: -Keep hob at 30-45 degrees -EVD removed. HCT okay daily as per Dr Ruiz -films and pt reviewed with Dr Ruiz -no change in neuro status -sitter with pt -ICPs stable prior to removal -Nicardipine ordered to keep SBP less than 140. Patient currently on hydralzine ordered for prn, also on orals. Appreciate medicine input on blood pressure management. -PT/OT/ST to eval and treat -Neurology consulted as well as critical care and IM-appreciate involvement and care with him -Discussed patient with Dr Ruiz -Please call neurosurgery with any questions/concerns Subjective: Awake and alert. NAD. Sitter with pt. Pt with feeding tube Objective: awake to verbal MAEx4 spontaneously. Provider Network Analyst bilaterally. Grabbled speech follows commands PERRLA. site c/d/i Neuro Check Frequency: per routine Urinary Catheter in Place: Yes Urinary Catheter Indication: Other (Use Comment) (not ambulating) Catheter Insertion Date: 06/18/17 - Physician Discussed Patient with Dr.: Other (Joseph) Patient Seen by Dr.: Other (Joseph) Neurosurgery Physical Exam - Vitals, I&O, Labs I and O 06/23/17 06/24/17 06/25/17 05:59 05:59 05:59 Intake Total 4115 4218 Output Total 3650 3350 Balance 465 868 Weight 111 kg 109.8 kg Intake: IV Intake (ml) 235 IV Infused (ml) 1965 2220 Dexmedetomidine in 0.9 % 534 371 NaCl 100 ml @ Per Protocol IV CONT MARIO Rx#: [id number] POTASSIUM Cl (KCl) 10 meq 345 In D5w 1/2 Ns 1,000 ml @ 75 mls/hr IV CONT MARIO Rx #:[id number] POTASSIUM Cl (KCl) 20 meq 714 1178 Sodium Cl 14.6% 38.5 meq In Water For Injection, Sterile 1,000 ml @ 50 mls /hr IV CONT MARIO Rx#: [id number] niCARdipine 50 mg In Ns 372 671 250 ml @ Titrate IV CONT MARIO Rx#:[id number] Tube Feeding (ml) 1550 1577 Tube Flush (ml) 365 421 Output: Urine (ml) 3650 3350 Catheter 3650 3350 NG Tube Output (ml) 0 Small Bore (5-12 Nigerian) 0 Weighted Right Naris Stomach 12 Nigerian CSF Drainage Amount 0 Ventriculostomy 0 Other: Number of Stools Catheter 0 Vital Signs Temp Pulse Resp BP Pulse Ox 37.3 C 74 15 163/75 H 95 06/23/17 20:00 06/24/17 06:00 06/24/17 06:00 06/24/17 06:00 06/24/17 06:00 Laboratory Results 06/23/17 04:10 06/24/17 04:25 ICD10 Worksheet Patient Problems: Problems Problem Status Onset Acute cerebellar hemorrhage Acute
[2017-06-24] MEDS: FLUoxetine 20 MG CAP TUBE SCH (09:15)
[2017-06-24] MEDS: SENNOSIDES 17.6 MG/10 ML UDL TUBE SCH ×2 (09:15→21:13)
[2017-06-24] MEDS: levETIRAcetam 500 MG/5 ML UDCUP TUBE SCH ×2 (09:16→21:12)
[2017-06-24] MEDS: LISINOPRIL 20 MG TAB TUBE SCH ×2 (09:16→21:13)
[2017-06-24] MEDS: ACETAMINOPHEN 650 MG/20.3 ML UDCUP TUBE PRN ×3 (09:28→21:14)
[2017-06-24] MEDS: HYDROmorphONE/DILAUDID 1 MG/ML INJ IVP PRN (10:05)
[2017-06-24] MEDS ORDERED: OLANZapine 5 MG TAB PO ONE (13:41)
[2017-06-24] MEDS ORDERED: FUROSEMIDE 20 MG/2 ML VIAL IVP ONE (14:35)
--- NOTE | 2017-06-24 14:58 | PDCONSULT ---
Percussion Instrument Repairer Note: REHABILITATION MEDICINE CONSULTATION VISIT INFORMATION: Rehab consultation was requested by Dr. Pak to provide an opinion regarding rehabilitation needs for this patient with cerebellar intraparenchymal hemorrhage. CC/ID: 62-year-old male status post a cerebellar vermis intraparenchymal hemorrhage on 06/17/2017 with tonsillar herniation now status post posterior fossa craniotomy and now status post a right ventriculostomy HPI: As noted above this is a 62-year-old previously healthy male visiting from [place] with his spouse for work who was diagnosed with a spontaneous cerebellar vermis intraparenchymal hemorrhage on 06/17/2017 at [facility] when he presented with symptoms. He urgently underwent a decompressive craniotomy with Dr. Ruiz. His EVD was ultimately removed on 06/2017. His ICU course has been complicated by severe hypertension treated with a nicardipine drip, metoprolol, p.r.n. hydralazine and labetalol, and additional antihypertensives. On review with his , the patient did not have a diagnosis of hypertension previously and he was under regular medical care from his primary care physician for maintenance. His overall level of awareness, interaction, and function has been gradually improving. Per reports from staff and physicians he is been in interactive in following one-step commands with greater consistency. He is answering yes no questions, and is somewhat agitated, displaying restlessness. He has a feeding tube in place as well as peripheral lines and nasal oxygen, and if his hands are free he will pull at these lines. He is on a low stimulation environment protocol and the ICU team is working on strategies to help with agitation including a low stim environment and frequent re-orientation. Ativan has reportedly not been helpful. The patient has been on Prozac for mood panic disorder premorbidly, and was on 40 mg at home which is his current dose. This panic disorder can premorbidly manifest as chest discomfort. He has been able to work with physical therapy and occupational therapy with increasing frequency and effectiveness, he still has not been able to participate well with speech therapy however. FUNCTIONAL HISTORY: Prior function: Was previously independent with ADLs/IADLs, mobility, cognition/ communication, swallow, bowel and bladder; was driving. He his has been Jamie reports that they are both quite active, and the patient edgar is walking, yoga, exercise programs. Current function: Precautions: Low stimulation environment Mobility: Overall, minimum to moderate assistance from 2 person. Following commands but still requiring 2 people for safety and supervision. ADLs / IADLs: Also minimum to moderate assistance, 2 person also for safety reasons. He is following 1 step commands with increasing consistency. Communicating with gestures Bowel: Appears continent Bladder: Nicole Cognition / communication: Has not worked with speech therapy but appears to be grossly able to communicate with head nod and shake for yes no comma appears to have greater than 90% accuracy for answering he go centric questions and appears to also be able to answer more complex questions Swallow: NPO, has a feeding tube for now ROS: Unable to accurately obtain full review of systems, denies any shortness of breath or chest pain. Denies any general pain PMH/PSH: Reported a history of tonsillectomy and hernia repair as well as panic disorder he a he has. Apparently sometimes has problems at altitude. He may have had a knee surgery of some type comma his Jamie was not sure. Med/All: Ativan has not been helpful for treating his Prozac, no allergies. Medications reviewed in the ICU and includes numerous antihypertensives and metoprolol. He is on a Precedex drip, on occasional low-dose opioids for pain control. He is also on levetiracetam for seizure prophylaxis. He is on Ativan p.r.n., he is also on fluoxetine 40 mg daily. There are 1 time doses for olanzapine. SOCIAL HISTORY: Currently visiting on work from [place] with his Jamie. He travels to [place] periodically. Occasionally drinks alcohol, no drugs or tobacco. His home has 2 steps to enter they have a half bath on the 1st floor and an area that he could sleep on the floor. Otherwise the bedrooms are on the 2nd floor of the unit with a relatively small staircase. Family would like for the patient to go back to [place] for rehabilitation as soon as possible, it is apparently the case that the spouse could care for him here for approximately 2 weeks or so but if it was an extended rehab course for several weeks that would be more for hardship. FAMILY HISTORY: No family history of neurological problems PHYSICAL EXAM: VS: Temperature is 37, blood pressure 133/56 pulse of 83 respirations 18 and saturating 96% on 2 L nasal cannula GEN: Normally developed, resting in chair, he has restraint mitts on and a roll belt PSYCH: Appeared slightly agitated, denied a low mood HEENT: Surgical incision on the posterior cervical spine with everett, no bruising, redness, or other signs of infection. Additional ventriculostomy site on the superior portion of the cranium healing well with sutures in place. He has a nasogastric tube in place, O2 nasal cannula. Eyes are closed, but when opened he has a dysconjugate gaze, pupils were equal and constricted CV: Heart RRR, no m/r/g, no LE edema, extremities warm RESP: Breathing comfortably, lungs CTAB no wrr ABD: +BS, soft, NTND : Nicole in place draining clear yellow urine EXTREMITIES: no edema, no deformity noted SKIN: no rashes or skin breakdown noted, surgical incision as above NEUROLOGIC EXAM: LOC: low level of alertness, or interacting with yes no responses to questions , 90% accurate for egocentric questions Cranial nerves: CNI: not tested CNII: Blink to threat both sides CNIII, IV, : Pupils were pinpoint, could not assess extraocular movements CNV: Difficult to assess, opening and closing his mouth gag spontaneously CNVII: symmetric facial expressions and to smiling CNVIII: gross hearing intact CN IX and X: no hoarseness appreciated, uvula midline CN XI: Could not assess shoulder showed CN XII: tongue protrudes midline without fasciculation or deviation Motor function: Tone: normal muscle tone and bulk without involuntary movements Could not assess strength, moving all extremities spontaneously, lifting arms above his head ROM: No apparent restricted range of motion Reflexes: Bic Tri BrachioRad Patella Achilles R 2+ 2+ 2+ 2+ 2+ L 1+ 1+ 1+ 0+ 1+ Babinski: Withdrawal Marks's: Could not assess in mitts Could not reliably assess sensory or cerebellar function Tremor: none RESULTS REVIEW: Sodium was 146, head CT from 06/23/2017 was personally reviewed and was stable with no hemorrhage and stable ventricular size. There was hemorrhage in the posterior fossa ASSESSMENT/PLAN: This is a 62-year-old previously high functioning male visit off from [place] on work when he suffered a spontaneous intraparenchymal hemorrhage in the cerebellar vermis on 06/17/2017, now with impairments in mobility, self-care, and also apparently communication plus or minus cognition. His functional status currently is complicated by his level of sedation, some agitation, and he is in the very early stages of recovery after his hemorrhage and surgery. Impairments in mobility, self-care, cognition, communication, swallowing status post cerebellar vermis intraparenchymal hemorrhage, craniotomy, ventriculostomy : Continue PT, OT, and speech therapy for further evaluations and treatment. I anticipate that his functional status and participation will continue to improve especially with weaning of Precedex and any other sedating medications. Agitation post brain hemorrhage: Complex problem which seems to be most accurately described as restlessness, likely has a component of premorbid panic disorder that is being treated with Prozac. Recommend continuing a low stimulation environment, controlling pain as you are. Keep him oriented and participating in care. Encourage a consistent sleep-wake cycle. Also, consider using the Agitated Behavior Scale (https://tbims.org/abs/abs.pdf) to monitor patient condition and response to interventions. Pharmacologically, work to stop sedation as you are, and consider propranolol as an alternative to metoprolol for the purpose of decreasing agitation. If using propranolol, this can be titrated from a 10 mg three times daily starting dose up to the maximum recommended dose as tolerated by blood pressure and heart rate. Consider melatonin for sleep/wake adjustment. Consider stopping methocarbamol as it may contribute to cognitive impairment. Levitiracetam can contribute to agitation and consider switching to phenytoin if agitation continues. Additionally, it is the observation of the family that Ativan has not been particularly helpful and it has the potential to have a paradoxical increase in agitation, and consider stopping this PRN medication. As a last option, atypical antipsychotics can be a useful adjunct in the short term, and I agree with the choice of olanzapine. Prophylaxis: The patient is at high risk for developing a deep venous thrombosis/venous thrombo embolism, consider starting low molecular weight heparin when sufficiently stable from his hemorrhage. For the time being agree with SCDs. Rehab planning: The patient is very early in his rehabilitation course at this point and speech therapy has not had a chance to work with the patient very much. Continue PT/OT/PARKING LOT SIGNALER as above. Currently, the family is also considering whether they would prefer to to rehabilitation locally versus med transport to the [facility] for rehabilitation. Ultimate goal is return to [place]. We will continue to work with the patient and family on this decision making process. Thank you for this consultation, please contact me with questions or concerns. A total of 85 min was spent on the floor in the care of the patient, the majority of which was spent counseling and coordination of care regarding discussion with other providers, discussion with the patient's family regarding rehabilitation options.
--- NOTE | 2017-06-24 16:14 | ECHO ---
[email or web address] [address] [address] Main: [phone] Fax: Transthoracic Echocardiogram Name: LORRIE HARDEN MR#: [id number] Study Date: 06/24/2017 Study Time: 02:56 PM Date of : 1955 Age: 62 year(s) Height: 160 cm (63 in.) Weight: 109.77 kg (242 lb.) BSA: 2.1 m2 Gender: Male Examination: Echo Indication: Large heart, question CHF Image Quality: Contrast: Requested by: Tim Pak BP: 122 mmHg/59 mmHg Heart Rate: Rhythm: Indication: Large heart, question CHF Procedure Staff Acoustic Warfare Analyst: Lucrecia Taylor Physician: Jake Rincon Requesting Provider: Conclusions: Normal size left ventricle. Mild concentric LV hypertrophy. Global hypercontractility of the left ventricle. The ejection fraction is estimated to be 70-75 %. Trivial to mild mitral regurgitation. The aortic valve is normal in appearance and function. Trivial tricuspid valve regurgitation. Measurements: Chambers Valvular Assessment AV/MV Valvular Assessment TV/PV Normal Normal Normal Name Value Range Name Value Range Name Value Range Ao Cristal (MM): 3.9 cm (2.2 cm-3.7 AV meanP mmHg ( - ) cm) MV E Vmax: 1.02 m/s ( - ) IVSd (2D): 1.0 cm (0.6 cm-1.1 MV A Vmax: 0.75 m/s ( - ) cm) MV E/A: 1.36 ( - ) LVDd (2D): 6.3 cm (4.2 cm-5.9 cm) LVDs (2D): 3.4 cm (2.1 cm-4 cm) LVPWd (2D): 1.1 cm (0.6 cm-1 cm) LVEF (MOD4): 71 % (>=55 %) EF Range: 70-75 % Continued Measurements: Chambers Valvular Assessment AV/MV Name Value Name Value LADs: 4.3 cm MV E/E' Septal: 12.00 Patient: LORRIE HARDEN Study Date: 06/24/2017 Page 1 of 2 02:56 PM LADs Lon.8 cm MV E/E' Lateral: 9.30 LA Area: 20.1 cm2 Findings: Left Ventricle: Normal size left ventricle. Mild concentric LV hypertrophy. Global hypercontractility of the left ventricle. The ejection fraction is estimated to be 70-75 %. No regional wall motion abnormality. Normal diastolic LV function. Right Ventricle: Normal size right ventricle. Left Atrium: The left atrium is normal in size. Right Atrium: The right atrium is normal in size. Mitral Valve: The mitral valve is normal in appearance and function. Trivial to mild mitral regurgitation. Aortic Valve: The aortic valve is normal in appearance and function. Tricuspid Valve: The tricuspid valve is normal in appearance and function. Trivial tricuspid valve regurgitation. Pulmonic Valve: Pulmonary valve not well visualized. Aorta: The aorta is normal. Pericardium: Trivial pericardial effusion. (No Signature Object) Patient: LORRIE HARDEN Study Date: 06/24/2017 Page 2 of 2 02:56 PM [id number]
[2017-06-24] MEDS ORDERED: FUROSEMIDE 20 MG/2 ML VIAL ONE (16:39)
[2017-06-24] MEDS: DIPHENHYDRAMINE CREAM TP PRN (16:49)
--- NOTE | 2017-06-24 19:23 | PDINTPN ---
Boot Liner Maker Progress Note Assessment/Plan: Assessment: 62-year-old admitted 06/17 with acute spontaneous cerebellar bleed. Hypertensive after admission but no history of hypertension prior to this event. From [place]. S/P Cerebellar ICH: S/P Evacuation 06/17. Neurologically improving, less somnolent, starting to respond but restless, confused and impulsive at times. Remains on Precedex at lower dose. HTN: None prior to admission. Now requiring Nicardipine with SBP at upper limit of preferred range. Unable to safely take POs, has NG. On Nicardipine IV and p.r.n. labetalol and hydralazine, along with scheduled amlodipine, lisinopril, clonidine patch. Hypokalemia: Resolved. Hyperglycemia: BSs down to low/mid 100s Hypernatremia: Na stable, 150 today DVT prophylaxis: SCDs, mobilization as tolerated Cardiac: Echo looks normal. Chest x-ray findings probably not related to cardiogenic pulmonary edema. Likely just hypoventilatory changes. Disposition: He will need neuro rehabilitation after discharge from the hospital. This can be done at [facility] on inpatient rehab. If long-term, he may need transport back to the [facility] to accomplish this. Plan: Continue antihypertensive treatments. Continue to wean nicardipine if possible. Continue Precedex, wean as tolerated. I will add Zyprexa for agitation to see if this helps. Will add melatonin to see if this can promote sleep. Continue tube feedings with free H2O to address hypernatremia. Follow laboratory, sodium. Continue blood sugar checks twice a day. Continue PT/OT/ ST. Rehab evaluation appreciated. Propranolol suggested. 30 min of critical care time spent directly with the patient. Discussed with the patient's significant other, nursing, social media strategist, and the ICU multi disciplinary team. Subjective: Remains quite restless, agitated at times, but responding to questions and commands. Still having trouble talking. Objective: Vital Signs Temp Pulse Resp BP Pulse Ox 37.2 C 73 12 116/65 96 06/24/17 16:00 06/24/17 19:00 06/24/17 19:00 06/24/17 19:00 06/24/17 19:00 Laboratory Results 06/23/17 04:10 06/24/17 04:25 06/23/17 06/24/17 06/25/17 05:59 05:59 05:59 Intake Total 4115 4218 2351 Output Total 3650 3350 1400 Balance 465 868 951 PT 13.1 SEC (12.0-15.0) 06/17/17 09:30 INR 0.97 (0.83-1.16) 06/17/17 09:30 Laboratory Tests 06/24/17 06/24/17 04:25 15:00 Calcium 8.4 L Magnesium 2.1 NT-Pro-B Natriuret Pep 680 H CXR: Hypoventilatory changes, large cardiac silhouette, possible congestive heart failure verses parenchymal crowding secondary to poor inspiration. Cardiac echo: Left ventricular function excellent: 70%. Valves okay. No pulmonary hypertension. Normal echo. Physical Exam - Physical Exam General Appearance: mild distress, other (Mits and roll belt in place) EENT: PERRL/EOMI, other (Nasal cannula and NG tube in place.) Neck: normal inspection (Large neck, no obvious jugular venous distension) Respiratory: lungs clear (Anteriorly), decreased breath sounds (At bases, no rales, rhonchi, wheezes) Cardiac/Chest: regular rate, rhythm Abdomen: normal bowel sounds, non-tender, soft, other Rectal: other (Nicole catheter in place, good urine output) Skin: normal color, warm/dry Extremities: No pedal edema Neuro/Psych: cognition abnormalities (Improving slowly. Confusion/agitation/ restlessness remains an issue), No no motor/sensory deficits ICD10 Worksheet Patient Problems: Problems Problem Status Onset Acute cerebellar hemorrhage Acute
[2017-06-24] MEDS ORDERED: OLANZapine 5 MG TAB TUBE SCH (21:00)
[2017-06-24] MEDS: PROPRANOLOL HCL 10 MG TAB TUBE SCH (21:14)
[2017-06-24] MEDS: MELATONIN 3 MG TAB PO SCH (21:14)
[2017-06-25] MEDS: DEXMEDETOMIDINE IN 0.9 % NACL 100 ML IV SCH ×3 (00:56→08:02)
[2017-06-25] MEDS: DIPHENHYDRAMINE CREAM TP PRN ×2 (00:57→10:02)
[2017-06-25] MEDS: ORAL BALANCE GEL TUBE PO PRN ×3 (00:57→20:16)
[2017-06-25] MEDS: HYDROmorphONE/DILAUDID 1 MG/ML INJ IVP PRN ×2 (01:31→17:31)
[2017-06-25] MEDS: hydrALAZINE 25 MG TAB PO SCH (05:20)
[2017-06-25] MEDS: POTASSIUM Cl (KCl) 20 MEQ, SODIUM CL 14.6% 38.5 MEQ in WATER FOR INJECTION,STERILE 1,00... IV SCH (05:22)
[2017-06-25 06:24] LABS: ANION GAP 14 mEq/L (8-16); CALCIUM 8.5 mg/dL (8.5-10.4); CARBON DIOXIDE 24 mEq/l (22-31); CHLORIDE 107 mEq/L (97-110); CREATININE 0.8 mg/dL (0.7-1.3); GLOMERULAR FILTRATION RATE > 60; GLUCOSE 159 mg/dL (70-100); POTASSIUM 4.2 mEq/L (3.5-5.2); SODIUM 145 mEq/L (134-144)
--- NOTE | 2017-06-25 07:15 | NEUSURGPN ---
Date of Surgery: 06/17/17 Post Op Day: 8 Assessment/Plan: Assessment: 62 yr old s/p posterior fossa craniotomy for cerebellar hemorrhage and placement of right ventriculostomy drain POD #8 Plan: -Keep hob at 30-45 degrees -EVD removed. HCT okay daily as per Dr Ruiz -films and pt reviewed with Dr Ruiz -no change in neuro status but with continued agitation-Zyprexa ordered and may consider increasing this dose to see if helps -sitter with pt -Nicardipine ordered to keep SBP less than 140. Patient currently on hydralzine ordered for prn, also on orals. Appreciate medicine input on blood pressure management. -PT/OT/ST to eval and treat -Neurology consulted as well as critical care and IM-appreciate involvement and care with him -Discussed patient with Dr Ruiz -Please call neurosurgery with any questions/concerns Subjective: No new complaints or concerns. No new events per RN Objective: awake to verbal MAEx4 spontaneously. Food Products Tester bilaterally. Grabbled speech follows commands PERRLA. site c/d/i Neuro Check Frequency: per routine Urinary Catheter in Place: No Urinary Catheter Indication: Other (Use Comment) ([place] cath in place) Catheter Insertion Date: 06/18/17 - Physician Discussed Patient with Dr.: Other (Joseph) Neurosurgery Physical Exam - Vitals, I&O, Labs I and O 06/24/17 06/25/17 06/26/17 05:59 05:59 05:59 Intake Total 4218 4161 Output Total 3350 3500 Balance 868 661 Weight 109.8 kg Intake: IV Infused (ml) 2220 2264 Dexmedetomidine in 0.9 % 371 473 NaCl 100 ml @ Per Protocol IV CONT MARIO Rx#: [id number] POTASSIUM Cl (KCl) 20 meq 1178 1189 Sodium Cl 14.6% 38.5 meq In Water For Injection, Sterile 1,000 ml @ 50 mls /hr IV CONT MARIO Rx#: [id number] niCARdipine 50 mg In Ns 671 602 250 ml @ Titrate IV CONT MARIO Rx#:[id number] Tube Feeding (ml) 1577 1597 Tube Flush (ml) 421 300 Output: Urine (ml) 3350 3500 Catheter 3350 3500 NG Tube Output (ml) 0 0 Small Bore (5-12 Mozambican) 0 0 Weighted Right Naris Stomach 12 [place]ican Vital Signs Temp Pulse Resp BP Pulse Ox 37.2 C 84 20 130/94 H 96 06/24/17 16:00 06/25/17 06:00 06/25/17 06:00 06/25/17 06:00 06/25/17 06:00 Laboratory Results 06/23/17 04:10 06/25/17 05:40 ICD10 Worksheet Patient Problems: Problems Problem Status Onset Acute cerebellar hemorrhage Acute
[2017-06-25] MEDS: SENNOSIDES 17.6 MG/10 ML UDL TUBE SCH ×2 (08:00→20:11)
[2017-06-25] MEDS: LISINOPRIL 20 MG TAB TUBE SCH ×2 (08:01→20:07)
[2017-06-25] MEDS: FLUoxetine 20 MG CAP TUBE SCH (08:02)
[2017-06-25] MEDS: PROPRANOLOL HCL 10 MG TAB TUBE SCH ×3 (08:02→20:08)
[2017-06-25] MEDS: levETIRAcetam 500 MG/5 ML UDCUP TUBE SCH (08:02)
[2017-06-25] MEDS ORDERED: OLANZapine 5 MG TAB PO ONE (10:23)
[2017-06-25] MEDS: ENOXAPARIN 40 MG/0.4 ML SYR SC SCH (11:36)
[2017-06-25] MEDS: hydrALAZINE 25 MG TAB TUBE SCH ×3 (11:39→20:11)
--- NOTE | 2017-06-25 14:26 | ASMTCMCOM ---
CM Note CM Note Notes: Spoke with patient's , Jamie who has moved from the hotel room to an apartment in [place] provided by [employer], patient's employer. Jamie has been discouraged about patient's neurological progress being slower in the past 3-4 days. He had a difficult time yesterday when patient was agitated and unable to get comfortable. Jamie has started a facebook page to keep family and friends informed. He thinks he will feel better now that he is out of the hotel room where patient had the stroke. Jamie is planning to do what the recommend at d/c. Inpatient rehab with [facility] is still the first choice before returning to [place]. Jamie is aware of support resources in the hospital and will let us know when he needs to utilize them again. CM will follow. Date Signed: 06/25/2017 02:25 PM Electronically Signed By:Mariah Johnson LCSW
--- NOTE | 2017-06-25 14:54 | PDINTPN ---
Naval Aircrewman Progress Note Assessment/Plan: Assessment: 62-year-old admitted 06/17 with acute spontaneous cerebellar bleed. Hypertensive after admission but no history of hypertension prior to this event. From [place]. S/P Cerebellar ICH: S/P Evacuation 06/17. Neurologically improving, less somnolent, starting to respond but remains restless, confused and impulsive at times. On an off Precedex, will stop this now secondary to the possibility that this is contributing to his confusion. HTN: None prior to admission. Has required Nicardipine, now off. On amlodipine , lisinopril, clonidine patch, and propranolol along with p.r.n. coverage. Will maintain all of this.. Hypokalemia: Resolved. Hyperglycemia: BSs down to low/mid 100s Hypernatremia: Resolving, 145 today DVT prophylaxis: SCDs, mobilization as tolerated Cardiac: Echo looks normal. Chest x-ray findings probably not related to cardiogenic pulmonary edema. Likely just hypoventilatory changes. Disposition: He will need neuro rehabilitation after discharge from the hospital. This can be done at [facility] on inpatient rehab. If long-term, he may need transport back to the [facility] to accomplish this. Plan: Continue antihypertensive treatments. Continue to wean nicardipine if possible. Continue Precedex, wean as tolerated. I will increase I Precedex a a to 10 mg. Will add melatonin to see if this can promote sleep. Continue tube feedings with free H2O to address hypernatremia. Follow laboratory, sodium. Continue PT/OT/ST and low stimulation environment. To inpatient rehabilitation when appropriate. 25 min of critical care time spent directly with the patient. Discussed with the patient's significant other, nursing, social service director, and the ICU multi disciplinary team. Subjective: Remains confused, restless. Objective: Vital Signs Temp Pulse Resp BP Pulse Ox 37.1 C 78 21 H 139/67 H 95 06/25/17 08:00 06/25/17 12:00 06/25/17 12:00 06/25/17 12:00 06/25/17 08:00 Laboratory Results 06/23/17 04:10 06/25/17 05:40 06/24/17 06/25/17 06/26/17 05:59 05:59 05:59 Intake Total 4218 4161 370 Output Total 3350 3500 500 Balance 868 661 -130 PT 13.1 SEC (12.0-15.0) 06/17/17 09:30 INR 0.97 (0.83-1.16) 06/17/17 09:30 Physical Exam - Physical Exam General Appearance: mild distress (Restless, agitated), other (In chair, roll belt and mits remain in place.) EENT: PERRL/EOMI, other (On room air) Neck: normal inspection Respiratory: lungs clear, decreased breath sounds (At bases), No rales, No rhonchi Cardiac/Chest: regular rate, rhythm Abdomen: normal bowel sounds, non-tender, soft Male Genitalia: other (Nicole catheter out) Skin: normal color, warm/dry Extremities: No pedal edema Neuro/Psych: cognition abnormalities (Neuro status about the same. Does respond to simple commands and questions. Largely nonverbal, remains restless, agitated at times), No no motor/sensory deficits ICD10 Worksheet Patient Problems: Problems Problem Status Onset Acute cerebellar hemorrhage Acute
[2017-06-25] MEDS: oxyCODONE ORAL SOLUTION 10 MG/0.5 ML UDSYR TUBE PRN (15:51)
[2017-06-25] MEDS: LORazepam 2 MG/ML INJ IVP PRN (17:31)
[2017-06-25] MEDS: MELATONIN 3 MG TAB PO SCH (20:07)
[2017-06-25] MEDS: OLANZapine 5 MG TAB TUBE SCH (20:07)
[2017-06-26] MEDS: LABETALOL HCL 5 MG/ML 20 ML MDV IVP PRN ×2 (00:51→20:22)
[2017-06-26] MEDS: LORazepam 2 MG/ML INJ IVP PRN ×3 (01:13→14:35)
[2017-06-26] MEDS: ACETAMINOPHEN 650 MG/20.3 ML UDCUP TUBE PRN ×3 (02:44→20:44)
[2017-06-26] MEDS: hydrALAZINE 25 MG TAB TUBE SCH ×4 (05:30→20:26)
[2017-06-26 05:41] LABS: ANION GAP 12 mEq/L (8-16); CALCIUM 8.7 mg/dL (8.5-10.4); CARBON DIOXIDE 28 mEq/l (22-31); CHLORIDE 103 mEq/L (97-110); CREATININE 0.9 mg/dL (0.7-1.3); GLOMERULAR FILTRATION RATE > 60; GLUCOSE 146 mg/dL (70-100); POTASSIUM 4.2 mEq/L (3.5-5.2); SODIUM 143 mEq/L (134-144)
--- NOTE | 2017-06-26 07:44 | SOAPPROG ---
SOAP Progress Note Assessment/Plan: Assessment: 62 yo M POD #9 suboccipital craniotomy for evacuation of ICH Plan: neuro: stable, still agitated and with sitter on zyprexa no evidence of hydrocephalus from head CT on 06/24 continue to keep SBP < 140 mmhg PT/OT/ST off keppra patient likely to need inpatient rehab please call with neuro changes discussed with Dr Ruiz 06/26/17 07:42 Subjective: chart reviewed Objective: Vital Signs Temp Pulse Resp BP Pulse Ox 36.9 C 84 14 150/71 H 94 06/25/17 15:54 06/26/17 04:00 06/26/17 04:00 06/26/17 05:30 06/26/17 04:00 Laboratory Results 06/23/17 04:10 06/26/17 05:10 06/25/17 06/26/17 06/27/17 05:59 05:59 05:59 Intake Total 4161 3116 Output Total 3500 2200 Balance 661 916 PT 13.1 SEC (12.0-15.0) 06/17/17 09:30 INR 0.97 (0.83-1.16) 06/17/17 09:30 agitated, non-verbal Pupils: 3 mm ou recative CINDY x 4 but no to command C/D/I ICD10 Worksheet Patient Problems: Problems Problem Status Onset Acute cerebellar hemorrhage Acute
[2017-06-26] MEDS: PROPRANOLOL HCL 10 MG TAB TUBE SCH ×2 (08:09→16:11)
[2017-06-26] MEDS: FLUoxetine 20 MG CAP TUBE SCH (08:10)
[2017-06-26] MEDS: LISINOPRIL 20 MG TAB TUBE SCH ×2 (08:18→20:26)
[2017-06-26] MEDS: SENNOSIDES 17.6 MG/10 ML UDL TUBE SCH ×2 (08:19→21:21)
[2017-06-26] MEDS: ENOXAPARIN 40 MG/0.4 ML SYR SC SCH (08:19)
[2017-06-26] MEDS: hydrALAZINE 20 MG/ML VIAL IVP PRN ×3 (12:45→19:47)
--- NOTE | 2017-06-26 13:48 | PDINTPN ---
Production Director Progress Note Assessment/Plan: Assessment: 62-year-old admitted 06/17 with acute spontaneous cerebellar bleed. Hypertensive after admission but no history of hypertension prior to this event. From [place]. S/P Cerebellar ICH: S/P Evacuation 06/17. Neurologically improving, more responsive but remains restless, confused and impulsive at times. Off Precedex. Increased lethargy/somnolence today may be secondary to Ativan given earlier, Zyprexa, for the fact that he is not had much sleep for several days. CT scan without new changes. HTN: None prior to admission. Has required Nicardipine, now off. On amlodipine , lisinopril, clonidine patch, and propranolol along with p.r.n. coverage. Will increase both propranolol and hydralazine Hypokalemia: Resolved. Hyperglycemia: BSs down to low/mid 100s Hypernatremia: Resolved, 143 today DVT prophylaxis: SCDs, mobilization as tolerated Cardiac: Echo looks normal. Chest x-ray findings probably not related to cardiogenic pulmonary edema. Likely just hypoventilatory changes. Disposition: He will need neuro rehabilitation after discharge from the hospital. This can be done at [facility] on inpatient rehab. If long-term, he may need transport back to the [place] area to accomplish this. Plan: Continue antihypertensive treatments, but increased both propranolol and hydralazine today to keep systolics closer to the 140 range. Continue tube feedings with free H2O. Follow laboratory, sodium. Continue PT/OT/ST and low stimulation environment. To inpatient rehabilitation when appropriate: Possibly early next week. 30 min of critical care time spent directly with the patient. Discussed with the patient's significant other, neuro surgery, nursing, and the ICU multi disciplinary team. Subjective: More somnolent today after 2 mg of Ativan, but he remains restless, agitated at times. Objective: Vital Signs Temp Pulse Resp BP Pulse Ox 37.1 C 83 18 137/70 H 91 L 06/26/17 13:05 06/26/17 11:54 06/26/17 11:54 06/26/17 13:35 06/26/17 11:54 Laboratory Results 06/23/17 04:10 06/26/17 05:10 06/25/17 06/26/17 06/27/17 05:59 05:59 05:59 Intake Total 4161 3116 Output Total 3500 2200 750 Balance 661 916 -750 PT 13.1 SEC (12.0-15.0) 06/17/17 09:30 INR 0.97 (0.83-1.16) 06/17/17 09:30 CT head: No acute changes, no hydrocephalus, no bleed. This is my reading. Official results pending. Physical Exam - Physical Exam General Appearance: other (Remains restless, picking at things when aroused.), No alert (Sleeping) EENT: PERRL/EOMI, other (Nasal cannula at 2 L) Neck: normal inspection (No JVD) Respiratory: lungs clear Cardiac/Chest: regular rate, rhythm Abdomen: normal bowel sounds, non-tender, soft, other (NG tube in place) Skin: normal color, warm/dry Neuro/Psych: no motor/sensory deficits (Moves all extremities), cognition abnormalities (More lethargic today, otherwise unchanged) ICD10 Worksheet Patient Problems: Problems Problem Status Onset Acute cerebellar hemorrhage Acute
--- NOTE | 2017-06-26 15:46 | ASMTCMCOM ---
CM Note CM Note Notes: Patient is finally sleeping. Spoke with Su Leahy who can get authoriztion for rehab services from [facility] on Thursday for patient. Plan remains [facility] inpatient rehab. Patient will likely be ready for d/c early next week. CM following. Date Signed: 06/26/2017 03:46 PM Electronically Signed By:Mariah Johnson LCSW
[2017-06-26] MEDS: ORAL BALANCE GEL TUBE PO PRN (19:47)
[2017-06-26] MEDS: OLANZapine 5 MG TAB TUBE SCH (20:03)
[2017-06-26] MEDS: MELATONIN 3 MG TAB PO SCH (20:26)
[2017-06-27] MEDS: PROPRANOLOL HCL 10 MG TAB TUBE SCH ×4 (01:21→23:00)
[2017-06-27 05:05] LABS: % IMMATURE GRANULYOCYTES 0.9 % (0.0-1.1); ABSOLUTE IMMATURE GRANULOCYTES 0.12 10^3/uL (0.00-0.10); ADD DIFF? NO; ADD MORPH? NO; ADD SCAN? NO; ATYPICAL LYMPHOCYTE FLAG 10 (0-99); FRAGMENT RBC FLAG 0 (0-99); HEMATOCRIT 35.6 % (40.0-51.0); HEMOGLOBIN 11.9 g/dL (13.7-17.5); LEFT SHIFT FLG 0 (0-99); LIPEMIA HEMOLYSIS FLAG 80 (0-99); MEAN CELL HEMOGLOBIN 31.6 pg (27.9-34.1); MEAN CELL HEMOGLOBIN CONCENTR. 33.4 g/dL (32.4-36.7); MEAN CELL VOLUME 94.4 fL (81.5-99.8); MEAN PLATELET VOLUME 10.1 fL (8.7-11.7); PLATELET CLUMPS FLAG 10 (0-99); PLATELET COUNT 407 10^3/uL (150-400); RED BLOOD CELL COUNT 3.77 10^6/uL (4.40-6.38); RED CELL DISTRIBUTION WIDTH 12.3 % (11.5-15.2)
[2017-06-27] MEDS: hydrALAZINE 25 MG TAB TUBE SCH ×4 (06:19→21:30)
[2017-06-27] MEDS: ACETAMINOPHEN 650 MG/20.3 ML UDCUP TUBE PRN ×2 (07:44→16:08)
[2017-06-27] MEDS: FLUoxetine 20 MG CAP TUBE SCH (07:45)
[2017-06-27] MEDS: ENOXAPARIN 40 MG/0.4 ML SYR SC SCH (07:45)
[2017-06-27] MEDS: LISINOPRIL 20 MG TAB TUBE SCH ×2 (07:46→20:30)
--- NOTE | 2017-06-27 10:19 | NEUSURGPN ---
Date of Surgery: 06/17/17 Post Op Day: 10 Assessment/Plan: Assessment: 62 yr old s/p posterior fossa craniotomy for cerebellum hemorrhage and placement of right ventriculostomy drain POD#10 Plan: -neuro: stable, still agitated and with sitter, follows commands -On Zyprexa -No evidence of hydrocephalus from head CT on 06/24 -continue to keep SBP < 140 mmhg, patient is now controlled with oral medications -Increased secretions this am, medicine to eval -PT/OT/ST -Case management to eval dispo options, likely needs rehab -Discussed patient with Dr Ruiz -Please call neurosurgery with any questions/concerns Subjective: Sitting in chair, unable to assess, increased secretions this am per RN Objective: agitated, non-verbal Pupils: 3 mm ou recative Does not open eyes to command or spontaneously CINDY x 4, BUE to command, not BLE to command Incision CDI Neuro Check Frequency: per routine Urinary Catheter in Place: Yes Urinary Catheter Indication: Accurate I & O Required Catheter Insertion Date: 06/18/17 - Physician Discussed Patient with Dr.: Other (Dr Ruiz) Neurosurgery Physical Exam - Vitals, I&O, Labs I and O 06/26/17 06/27/17 06/28/17 05:59 05:59 05:59 Intake Total 3116 2802 Output Total 2200 2300 Balance 916 502 Intake: IV Intake (ml) 0 IV Infused (ml) 370 Dexmedetomidine in 0.9 % 70 NaCl 100 ml @ Per Protocol IV CONT MARIO Rx#: [id number] POTASSIUM Cl (KCl) 20 meq 300 Sodium Cl 14.6% 38.5 meq In Water For Injection, Sterile 1,000 ml @ 50 mls /hr IV CONT MARIO Rx#: [id number] Tube Feeding (ml) 2395 2401 Tube Flush (ml) 351 401 Output: Urine (ml) 2200 2300 Catheter 1500 2300 Urinal 700 NG Tube Output (ml) 0 Small Bore (5-12 Tongan) 0 Weighted Right Naris Stomach 12 Tongan Other: Output Comment Catheter condom cath Number of Voids Incontinence 2 Urinal 2 Number of Stools Urinal 1 Vital Signs Temp Pulse Resp BP Pulse Ox 37.5 C 76 20 122/54 H 94 06/27/17 10:16 06/27/17 10:16 06/27/17 10:16 06/27/17 10:16 06/27/17 10:16 Laboratory Results 06/27/17 05:00 06/26/17 05:10 ICD10 Worksheet Patient Problems: Problems Problem Status Onset Acute cerebellar hemorrhage Acute
--- NOTE | 2017-06-27 15:27 | PDINTPN ---
Machine Greaser Progress Note Assessment/Plan: Assessment: 62-year-old admitted 06/17 with acute spontaneous cerebellar bleed. Hypertensive after admission but no history of hypertension prior to this event. From [place]. S/P Cerebellar ICH: S/P Evacuation 06/17. Neurologically improved, remains somnolent, restless, confused and impulsive at times. Off Precedex. Increased lethargy/somnolence today may be secondary to Ativan given earlier, Zyprexa, for the fact that he is not had much sleep for several days. CT scan without new changes. HTN: None prior to admission. Has required Nicardipine, now off. On amlodipine , lisinopril, clonidine patch, and propranolol along with p.r.n. coverage. Will increase both propranolol and hydralazine Hypokalemia: Resolved. Hyperglycemia: BSs down to low/mid 100s Hypernatremia: Resolved, 143 today DVT prophylaxis: SCDs, mobilization as tolerated Cardiac: Echo wnl. Fever/leukocytosis. Temperature 38 today, increased white blood cell count [id number]. No obvious pneumonia on chest x-ray, but cannot absolutely rule out in early infiltrate versus atelectasis in the mid right lung. Will repeat x-ray tomorrow, get a surveillance nasotracheal suction sputum culture. Disposition: He will need neuro rehabilitation after discharge from the hospital. This can be done at [facility] on inpatient rehab if he qualifies. If long-term, he may need transport back to the [place] area. Plan: Continue supportive care in the intensive care unit. Continue antihypertensive treatments to keep systolic in the 140 range. Continue tube feedings with free H2O. Follow CBC, chest x-ray. Obtain sputum culture.. Continue PT/OT/ST and low stimulation environment. Consider transfer to [address] [place] [address] tomorrow. To inpatient rehabilitation when appropriate: Possibly early next week. 25 min of critical care time spent directly with the patient. Discussed with nursing, the ICU multi disciplinary team. Subjective: Up in chair. Remains lethargic. Does respond to simple commands. Remains agitated, confused at times. Objective: Vital Signs Temp Pulse Resp BP Pulse Ox 37.4 C 66 20 100/51 L 95 06/27/17 12:00 06/27/17 12:00 06/27/17 12:00 06/27/17 12:00 06/27/17 12:00 Laboratory Results 06/27/17 05:00 06/26/17 05:10 06/26/17 06/27/17 06/28/17 05:59 05:59 05:59 Intake Total 3116 2802 Output Total 2200 2300 Balance 916 502 PT 13.1 SEC (12.0-15.0) 06/17/17 09:30 INR 0.97 (0.83-1.16) 06/17/17 09:30 CXR: Hypoventilatory changes with poor inspiration. Small infiltrate verses atelectasis right mid lung. Physical Exam - Physical Exam General Appearance: other (Somnolent, arouses, responds) EENT: PERRL/EOMI, other (Nasal cannula at 2 L, NG tube in place) Neck: normal inspection (No JVD) Respiratory: lungs clear (Peripherally), decreased breath sounds (At bases), rhonchi (Congestion at the level of the throat, vocal cords.), No wheezing Cardiac/Chest: regular rate, rhythm Abdomen: normal bowel sounds, non-tender, soft, other (Tolerating tube feedings at goal) Male Genitalia: other (Catheter in place) Skin: normal color, warm/dry Extremities: No pedal edema (Trace) Neuro/Psych: cognition abnormalities (Neurologic status about the same), No no motor/sensory deficits ICD10 Worksheet Patient Problems: Problems Problem Status Onset Acute cerebellar hemorrhage Acute
[2017-06-27] MEDS: ORAL BALANCE GEL TUBE PO PRN (16:36)
[2017-06-27] MEDS: SENNOSIDES 17.6 MG/10 ML UDL TUBE SCH ×2 (16:37→19:39)
[2017-06-27] MEDS: MELATONIN 3 MG TAB PO SCH (19:39)
[2017-06-27] MEDS: OLANZapine 5 MG TAB TUBE SCH (19:39)
[2017-06-28] MEDS: LORazepam 2 MG/ML INJ IVP PRN (00:25)
[2017-06-28 05:31] LABS: % IMMATURE GRANULYOCYTES 0.7 % (0.0-1.1); ABSOLUTE IMMATURE GRANULOCYTES 0.09 10^3/uL (0.00-0.10); ADD DIFF? NO; ADD MORPH? NO; ADD SCAN? NO; ATYPICAL LYMPHOCYTE FLAG 10 (0-99); FRAGMENT RBC FLAG 0 (0-99); HEMATOCRIT 34.2 % (40.0-51.0); HEMOGLOBIN 11.1 g/dL (13.7-17.5); LEFT SHIFT FLG 0 (0-99); LIPEMIA HEMOLYSIS FLAG 80 (0-99); MEAN CELL HEMOGLOBIN 31.4 pg (27.9-34.1); MEAN CELL HEMOGLOBIN CONCENTR. 32.5 g/dL (32.4-36.7); MEAN CELL VOLUME 96.9 fL (81.5-99.8); MEAN PLATELET VOLUME 10.5 fL (8.7-11.7); PLATELET CLUMPS FLAG 0 (0-99); PLATELET COUNT 382 10^3/uL (150-400); RED BLOOD CELL COUNT 3.53 10^6/uL (4.40-6.38); RED CELL DISTRIBUTION WIDTH 12.6 % (11.5-15.2)
[2017-06-28 05:53] LABS: SEDIMENTATION RATE 44 MM/HR (0-20)
[2017-06-28] MEDS: hydrALAZINE 25 MG TAB TUBE SCH ×4 (06:53→20:24)
--- NOTE | 2017-06-28 08:10 | NEUSURGPN ---
Date of Surgery: 06/17/17 Post Op Day: 11 Assessment/Plan: Assessment: 62 yr old s/p posterior fossa craniotomy for cerebellum hemorrhage and placement of right ventriculostomy drain POD#11 Plan: -neuro: stable, still agitated and with sitter, follows commands -On Zyprexa at night -No evidence of hydrocephalus from head CT on 06/24 -continue to keep SBP < 140 mmhg, patient is now controlled with oral medications -Continued increased secretions -Patient more alert this am -PT/OT/ST -Case management to eval dispo options, likely needs rehab -Discussed patient with Dr Ruiz -Please call neurosurgery with any questions/concerns Subjective: Unable to obtain, no new events per RN Objective: agitated, non-verbal Pupils: 3 mm ou recative Opens eyes spontaneously this am CINDY x 4, BUE,BLE to command Incision CDI Neuro Check Frequency: per routine Urinary Catheter in Place: No Catheter Insertion Date: 06/18/17 - Physician Discussed Patient with Dr.: Other (Dr Ruiz) Neurosurgery Physical Exam - Vitals, I&O, Labs I and O 06/27/17 06/28/17 06/29/17 05:59 05:59 05:59 Intake Total 2802 2226 Output Total 2300 1700 Balance 502 526 Intake: IV Intake (ml) 0 Tube Feeding (ml) 2401 1826 Tube Flush (ml) 401 400 Output: Urine (ml) 2300 1700 Catheter 2300 Incontinence 1700 Other: Number of Voids Incontinence 2 Number of Stools Incontinence 0 Microbiology 06/27/17 16:20 - Final Sputum, Induced/Suctioned Vital Signs Temp Pulse Resp BP Pulse Ox 37.6 C 74 20 103/69 94 06/28/17 04:00 06/28/17 04:00 06/28/17 04:00 06/28/17 06:53 06/28/17 04:00 Laboratory Results 06/28/17 05:20 06/26/17 05:10 ICD10 Worksheet Patient Problems: Problems Problem Status Onset Acute cerebellar hemorrhage Acute
[2017-06-28] MEDS: ACETAMINOPHEN 650 MG/20.3 ML UDCUP TUBE PRN ×2 (08:34→17:21)
[2017-06-28] MEDS: LISINOPRIL 20 MG TAB TUBE SCH ×3 (08:34→20:24)
[2017-06-28] MEDS: SENNOSIDES 17.6 MG/10 ML UDL TUBE SCH ×2 (08:35→20:25)
[2017-06-28] MEDS: ENOXAPARIN 40 MG/0.4 ML SYR SC SCH (08:35)
[2017-06-28] MEDS: FLUoxetine 20 MG CAP TUBE SCH (08:35)
[2017-06-28] MEDS: PROPRANOLOL HCL 10 MG TAB TUBE SCH ×3 (08:36→22:04)
--- NOTE | 2017-06-28 14:12 | PDINTPN ---
Rib Bender Progress Note Assessment/Plan: Assessment: 62-year-old admitted 06/17 with acute spontaneous cerebellar bleed. Hypertensive after admission but no history of hypertension prior to this event. From [place]. S/P Cerebellar ICH: S/P Evacuation 06/17. Has improved neurologically, but slowly. Decreased mental status is resolving. Off Precedex for several days. On low-dose Ativan p.r.n. and Zyprexa at night. HTN: None prior to admission. Has required Nicardipine, now off. On amlodipine , lisinopril, clonidine patch, and propranolol along with p.r.n. coverage. Blood pressure lower today so I will cut back on antihypertensive medications. Hypokalemia: Resolved. Hyperglycemia: BSs down to low/mid 100s Hypernatremia: Resolved, 143 yesterday DVT prophylaxis: SCDs, mobilization as tolerated Cardiac: Echo wnl. Nutrition: Has an NG tube in place, getting tube feedings. Unable to swallow. A PEG tube will be needed. Discussed with speech. Fever/leukocytosis. Afebrile today, white blood cell count slightly down. No obvious pneumonia on x-ray. Sputum culture pending. Disposition: He will need neuro rehabilitation after discharge from the hospital. This can be done at [facility] on inpatient rehab, hopefully early this next week. If long-term, he may need transport back to the [place] area. Plan: Continue supportive care in the intensive care unit on SDU. For PEG tube placement tomorrow. Discussed with GI. Continue antihypertensive treatments to keep systolic in the 140 range, but will decrease as his blood pressure is significantly lower today... See orders. Continue tube feedings with free H2O. Follow CBC, lab chest x-ray as needed. Continue PT/OT/ST and low stimulation environment. To inpatient rehabilitation: Possibly early this week. 30 min of critical care time spent directly with the patient. Discussed with patient's significant other, nursing, GI, the ICU multi disciplinary team. Subjective: More alert, responsive today. Remains somewhat restless. Objective: Vital Signs Temp Pulse Resp BP Pulse Ox 36.6 C 68 18 111/48 L 95 06/28/17 12:00 06/28/17 12:00 06/28/17 12:00 06/28/17 12:20 06/28/17 12:00 Microbiology 06/27/17 16:20 - Final Sputum, Induced/Suctioned Laboratory Results 06/28/17 05:20 06/26/17 05:10 06/27/17 06/28/17 06/29/17 05:59 05:59 05:59 Intake Total 2802 2226 60 Output Total 2300 1700 420 Balance 502 526 -360 PT 13.1 SEC (12.0-15.0) 06/17/17 09:30 INR 0.97 (0.83-1.16) 06/17/17 09:30 CXR: About the same. Hypoventilatory changes with vague infiltrate or atelectasis, slightly better, right mid lung. No evidence of discrete pneumonia Physical Exam - Physical Exam General Appearance: alert (Responsive, tries to shake hands), mild distress ( Restlessness) EENT: PERRL/EOMI, other (Incision clean and dry. Nasal cannula 2 L) Neck: normal inspection (No JVD, no stridor) Respiratory: lungs clear, decreased breath sounds (At bases), other (Some secretions at times in throat which she has difficulty clearing. No ability to swallow), No rales, No rhonchi, No wheezing Cardiac/Chest: regular rate, rhythm Abdomen: normal bowel sounds (Tolerating tube feeds), non-tender, soft, other ( NG-tube in place) Skin: normal color, warm/dry Extremities: No pedal edema Neuro/Psych: no motor/sensory deficits (Moves all extremities equally. Can march in place somewhat. Unsteady.), cognition abnormalities (Improving) ICD10 Worksheet Patient Problems: Problems Problem Status Onset Acute cerebellar hemorrhage Acute
--- NOTE | 2017-06-28 14:40 | PDCONSULT ---
Package Crimper Note: I was asked by Dr. Pak to consult on the patient to consider PEG placement. History of Present Illness - General Stated Complaint: stroke alert, BARNES, onset 0900 Time Seen by Provider: 06/17/17 09:35 Source: Patient, Family HPI: Mr. Glover is a plasant 62to male who was admitted to [facility] with acute hemorrhagic stroke. He has been recovering well, but not had adequate resumption on PO intake. His neurologic recovery is likely to take more time, and an interval method of administering food and medications is warranted. Patient has had no abdominal surgeries. He has been tolerating TF w/u difficulty or high residuals. Initial Vital Signs: Initial Vital Signs Heart Rate 45 L 06/17/17 09:49 Respiratory Rate 27 H 06/17/17 09:49 Blood Pressure 167/98 H 06/17/17 09:49 O2 Sat (%) 97 06/17/17 09:49 O2 Delivery Mode Nasal Cannula O2 (L/minute) 2 Allergies/Adverse Reactions: No Known Allergies Allergy (Unverified 06/17/17 10:10) Home Medications: Medication Instructions Recorded Fluoxetine HCl [Prozac 40 mg] 40 mg PO DAILY 06/18/17 Herbals/Supplements -Info Only 1 ea PO DAILY 06/18/17 Ibuprofen [Motrin (*)] 400 mg PO Q6H PRN 06/18/17 LORazepam [Ativan (*)] 0.5 mg PO DAILY PRN 06/18/17 Past Medical History PMH: - Medical/Surgical History Hx Asthma: No Hx Chronic Respiratory Disease: No Hx Cardiac Disease: No Hx Diabetes: No Hx Renal Disease: No Hx Alcoholism: No Hx Cirrhosis: No Hx HIV/AIDS: No Hx Splenectomy or Spleen Trauma: No Other PMH: denies - Family History Significant Family History: No: Heart disease, Cancer - Social History Smoking Status: Never smoked Drug Use: None Additional Social History: Physical Exam Physical Exam: - Physical Exam General Appearance: WD/WN, alert, no apparent distress EENT: PERRL/EOMI, normal ENT inspection, pharynx normal Respiratory: chest non-tender, lungs clear, normal breath sounds Cardiac/Chest: normal peripheral pulses, regular rate, rhythm. No: edema Abdomen: normal bowel sounds, non-tender, soft Skin: normal color Extremities: normal range of motion Neuro/Psych: alert, aphasia Review of Systems Review of Systems: - Review of Systems Constitutional: see HPI EENTM: see HPI Respiratory: see HPI Cardiac: see HPI Gastrointestinal/Abdominal: see HPI Genitourinary: see HPI Musculoskelatal: see HPI Skin: see HPI Neurological: see HPI Hematologic/Lymphatic: see HPI Immunologic/allergic: see HPI Lab and Imaging 06/28/17 05:20 06/26/17 05:10 WBC 13.26 10^3/uL (3.80-9.50) H 06/28/17 05:20 RBC 3.53 10^6/uL (4.40-6.38) L 06/28/17 05:20 Hgb 11.1 g/dL (13.7-17.5) L 06/28/17 05:20 POC Hgb 11.2 gm/dL (13.7-17.5) L 06/20/17 19:45 Hct 34.2 % (40.0-51.0) L 06/28/17 05:20 POC Hct 33 % (40-51) L 06/20/17 19:45 MCV 96.9 fL (81.5-99.8) 06/28/17 05:20 MCH 31.4 pg (27.9-34.1) 06/28/17 05:20 MCHC 32.5 g/dL (32.4-36.7) 06/28/17 05:20 RDW 12.6 % (11.5-15.2) 06/28/17 05:20 Plt Count 382 10^3/uL (150-400) 06/28/17 05:20 MPV 10.5 fL (8.7-11.7) 06/28/17 05:20 Neut % (Auto) 67.3 % (39.3-74.2) 06/28/17 05:20 Lymph % (Auto) 18.5 % (15.0-45.0) 06/28/17 05:20 [place] % (Auto) 11.3 % (4.5-13.0) 06/28/17 05:20 Eos % (Auto) 1.9 % (0.6-7.6) 06/28/17 05:20 Baso % (Auto) 0.3 % (0.3-1.7) 06/28/17 05:20 Nucleat RBC Rel Count 0.0 % (0.0-0.2) 06/28/17 05:20 Absolute Neuts (auto) 8.93 10^3/uL (1.70-6.50) H 06/28/17 05:20 Absolute Lymphs (auto) 2.45 10^3/uL (1.00-3.00) 06/28/17 05:20 Absolute Monos (auto) 1.50 10^3/uL (0.30-0.80) H 06/28/17 05:20 Absolute Eos (auto) 0.25 10^3/uL (0.03-0.40) 06/28/17 05:20 Absolute Basos (auto) 0.04 10^3/uL (0.02-0.10) 06/28/17 05:20 Absolute Nucleated RBC 0.00 10^3/uL (0-0.01) 06/28/17 05:20 Immature Gran % 0.7 % (0.0-1.1) 06/28/17 05:20 Immature Gran # 0.09 10^3/uL (0.00-0.10) 06/28/17 05:20 ESR 44 MM/HR (0-20) H 06/28/17 05:20 PT 13.1 SEC (12.0-15.0) 06/17/17 09:30 INR 0.97 (0.83-1.16) 06/17/17 09:30 APTT 24.1 SEC (23.0-38.0) 06/17/17 09:30 POC Blood Source ARTERIAL 06/18/17 20:51 Puncture Site ARTERIAL LINE 06/18/17 06:20 Patient Temperature 98.0 DEGREES 06/18/17 20:51 POC pH 7.35 (7.35-7.45) 06/18/17 20:51 POC pCO2 48 mmHg (34-38) H 06/18/17 20:51 pCO2 40 mmHg (34-38) H 06/18/17 06:20 POC pO2 50 mmHg (65-75) L 06/18/17 20:51 pO2 63 mmHg (65-75) L 06/18/17 06:20 POC HCO3 26 mEq/L (22-26) 06/18/17 20:51 Total CO2 25 mEq/L (23-27) 06/18/17 06:20 POC Total CO2 28 mEq/L (23-27) H 06/18/17 20:51 POC Base Excess 0.0 mEq/L (-2.5-2.5) 06/18/17 20:51 POC O2 Sat (Calc) 83 % (92-95) L 06/18/17 20:51 ABG pH 7.39 (7.35-7.45) 06/18/17 06:20 ABG PO2/FiO2 Ratio Cancelled 06/18/17 04:10 ABG HCO3 24 mEq/L (22-26) 06/18/17 06:20 ABG O2 Sat (Calculated) Cancelled 06/18/17 04:10 ABG O2 Saturation 92 % (92-95) 06/18/17 06:20 ABG Base Excess -0.8 mEq/L (-2.5-2.5) 06/18/17 06:20 Total O2 Concentration 2.0 LITERS 06/18/17 06:20 O2 Concentration % Cancelled 06/18/17 04:10 Respiration Rate Cancelled 06/18/17 04:10 Actual Respiration Rate Cancelled 06/18/17 04:10 Set Respiration Rate Cancelled 06/18/17 04:10 SIMV Cancelled 06/18/17 04:10 Assist Control Cancelled 06/18/17 04:10 Vent Rate Cancelled 06/18/17 04:10 Inspiratory Time Cancelled 06/18/17 04:10 Expiratory Pressure Cancelled 06/18/17 04:10 Tidal Volume Cancelled 06/18/17 04:10 End Tidal CO2 Cancelled 06/18/17 04:10 PEEP Cancelled 06/18/17 04:10 Inspiratory Pressure Cancelled 06/18/17 04:10 Peak Inspir Pressure Cancelled 06/18/17 04:10 Pressure Support Cancelled 06/18/17 04:10 Pressure Control Cancelled 06/18/17 04:10 CPAP Cancelled 06/18/17 04:10 BiPAP Cancelled 06/18/17 04:10 Mode BiPAP Cancelled 06/18/17 04:10 Inspir/Expir Ratio Cancelled 06/18/17 04:10 POC Sodium 150 mEq/L (134-144) H 06/20/17 19:45 Sodium 143 mEq/L (134-144) 06/26/17 05:10 POC Potassium 3.5 mEq/L (3.3-5.0) 06/20/17 19:45 Potassium 4.2 mEq/L (3.5-5.2) 06/26/17 05:10 POC Chloride 112 mEq/L (97-110) H 06/20/17 19:45 Chloride 103 mEq/L (97-110) 06/26/17 05:10 Carbon Dioxide 28 mEq/l (22-31) 06/26/17 05:10 Anion Gap 12 mEq/L (8-16) 06/26/17 05:10 POC BUN 31 mg/dL (7-23) H 06/20/17 19:45 BUN 28 mg/dL (7-23) H 06/26/17 05:10 Creatinine 0.9 mg/dL (0.7-1.3) 06/26/17 05:10 POC Creatinine 1.0 mg/dL (0.7-1.3) 06/20/17 19:45 Estimated GFR > 60 06/26/17 05:10 Glucose 146 mg/dL (70-100) H 06/26/17 05:10 POC Glucose 149 mg/dL (70-100) H 06/24/17 08:05 Calcium 8.7 mg/dL (8.5-10.4) 06/26/17 05:10 Magnesium 2.1 mg/dL (1.6-2.3) 06/24/17 04:25 Troponin I < 0.012 ng/mL (0.000-0.034) 06/17/17 09:30 NT-Pro-B Natriuret Pep 680 pg/mL (0-125) H 06/24/17 15:00 Phenytoin 5.5 mcg/mL (10.0-20.0) L 06/18/17 03:40 Patient ABO/Rh A POSITIVE 06/17/17 11:38 Antibody Screen NEGATIVE 06/17/17 11:38 Assessment & Plan Assessment: Acute cerebellar hemorrhage (Acute) Likely prolonged neurologic recovery Plan: 1. plan PEG placement tomorrow 2. will need 1gm Ancef suction roller 3. given CVA and obesity, at increased risk of sedation. But, risks do not outweigh potential benefits. 4. discussion of procedure, risks and benefits, was had with patient and patient 's partner at the bedside - will follow call with questions
[2017-06-28] MEDS: ORAL BALANCE GEL TUBE PO PRN (17:23)
[2017-06-28] MEDS: MELATONIN 3 MG TAB PO SCH (20:24)
[2017-06-28] MEDS: OLANZapine 5 MG TAB TUBE SCH (22:04)
[2017-06-29] MEDS: hydrALAZINE 25 MG TAB TUBE SCH ×2 (07:10→13:20)
--- NOTE | 2017-06-29 08:02 | SOAPPROG ---
SOAP Progress Note Assessment/Plan: Assessment: 62 yo M sp suboccipital craniotomy for evacuation of ICH Plan: neuro: stable, still agitated but making progress on zyprexa no evidence of hydrocephalus from head CT on 06/26 PEG placement today continue BP control PT/OT/ST off keppra patient likely to need inpatient rehab please call with neuro changes discussed with Dr Ruiz 06/26/17 07:42 06/29/17 07:54 Subjective: no headaches, no N/V. Continued issues with dysphagia Objective: Vital Signs Temp Pulse Resp BP Pulse Ox 36.7 C 78 18 121/60 H 96 06/29/17 07:18 06/29/17 07:18 06/29/17 07:18 06/29/17 07:18 06/29/17 07:18 Microbiology 06/27/17 16:20 - Final Sputum, Induced/Suctioned Laboratory Results 06/28/17 05:20 06/26/17 05:10 06/28/17 06/29/17 06/30/17 05:59 05:59 05:59 Intake Total 2226 1419 Output Total 1700 980 Balance 526 439 PT 13.1 SEC (12.0-15.0) 06/17/17 09:30 INR 0.97 (0.83-1.16) 06/17/17 09:30 awake, alert, oriented to month, confused to location/year PERRL, no facial droop CINDY x 4 + light touch C/D/I ICD10 Worksheet Patient Problems: Problems Problem Status Onset Acute cerebellar hemorrhage Acute
[2017-06-29] MEDS: NS 1,000 ML IV SCH (09:31)
[2017-06-29] MEDS: ACETAMINOPHEN 650 MG/20.3 ML UDCUP TUBE PRN (09:32)
[2017-06-29] MEDS: SENNOSIDES 17.6 MG/10 ML UDL TUBE SCH ×2 (09:32→21:21)
[2017-06-29] MEDS: FLUoxetine 20 MG CAP TUBE SCH (09:33)
[2017-06-29] MEDS: LISINOPRIL 20 MG TAB TUBE SCH ×2 (09:33→21:20)
[2017-06-29] MEDS: PROPRANOLOL HCL 10 MG TAB TUBE SCH ×3 (09:34→21:20)
--- NOTE | 2017-06-29 12:13 | PDINTPN ---
[employer] Professor Progress Note Assessment/Plan: Assessment: * S/P Cerebellar ICH: S/P Evacuation 06/17. Has improved neurologically, but slowly. Decreased mental status is resolving. Off Precedex for several days. On low-dose Ativan p.r.n. and Zyprexa at night. * HTN: None prior to admission. Has required Nicardipine, now off. On amlodipine, lisinopril, clonidine patch, and propranolol along with p.r.n. coverage. Blood pressure lower today so I will cut back on antihypertensive medications. * Hypokalemia: Resolved. * Hyperglycemia: BSs down to low/mid 100s * Hypernatremia: Resolved, 143 yesterday * DVT prophylaxis: SCDs, mobilization as tolerated * Mental status-markedly improved. Beginning to verbalize. * Nutrition: Has an NG tube in place, getting tube feedings. Unable to swallow. A PEG tube will be needed. Discussed with speech. * Fever/leukocytosis. Resolved. * Staph aureus in sputum noted. Patient afebrile and no elevation white count. Will not treat at this time. Plan: [facility] Rehab soon Subjective: Up in chair. Resting comfortably. Awake and alert. Objective: Vital Signs Temp Pulse Resp BP Pulse Ox 36.8 C 78 18 120/68 94 06/29/17 07:53 06/29/17 09:34 06/29/17 09:00 06/29/17 09:34 06/29/17 09:05 Microbiology 06/27/17 16:20 - Final Sputum, Induced/Suctioned Laboratory Results 06/28/17 05:20 06/26/17 05:10 06/28/17 06/29/17 06/30/17 05:59 05:59 05:59 Intake Total 2226 1419 60 Output Total 1700 980 430 Balance 526 439 -370 PT 13.1 SEC (12.0-15.0) 06/17/17 09:30 INR 0.97 (0.83-1.16) 06/17/17 09:30 Physical Exam - Physical Exam General Appearance: alert, no apparent distress EENT: PERRL/EOMI Neck: non-tender, other (Posterior incision healing well) Respiratory: chest non-tender, lungs clear Cardiac/Chest: normal peripheral pulses, regular rate, rhythm, systolic murmur Abdomen: normal bowel sounds, non-tender, soft Male Genitalia: deferred Rectal: deferred Skin: normal color, warm/dry Extremities: normal range of motion, non-tender, normal inspection, normal capillary refill Neuro/Psych: alert ICD10 Worksheet Patient Problems: Problems Problem Status Onset Acute cerebellar hemorrhage Acute
--- NOTE | 2017-06-29 15:19 | ASMTCMCOM ---
CM Note CM Note Notes: In-pt Rehab has ins auth for admission. Patient to get a PEG tube this afternoon. In-pt would like to admit Thursday. , Jamie very concerned about his partner and their new future. Date Signed: 06/29/2017 03:19 PM Electronically Signed By:Christina Worrell LCSW
--- NOTE | 2017-06-29 17:38 | PDANEPAE ---
ANE History of Present Illness PEG cva with swallowing problems ANE Past Medical History - Cardiovascular History Hx Hypertension: No Hx Arrhythmias: No Hx Chest Pain: No Hx Coronary Artery / Peripheral Vascular Disease: No Hx CHF / Valvular Disease: No Hx Palpitations: No - Pulmonary History Hx COPD: No Hx Asthma/Reactive Airway Disease: No Hx Oxygen in Use at Home: No Hx Sleep Apnea: No Sleep Apnea Screening Result - Last Documented: Positive - Neurologic History Hx Cerebrovascular Accident: Yes Hx Seizures: No Hx Dementia: No - Endocrine History Hx Diabetes: No Hypothyroid: No Hyperthyroid: No Obesity: mild - Renal History Hx Renal Disorders: No - Liver History Hx Hepatic Disorders: No ANE Review of Systems Review of Systems: - Exercise capacity METS (RN): 4 METS ANE Patient History - Allergies Allergies/Adverse Reactions: No Known Allergies Allergy (Unverified 06/17/17 10:10) - Home Medications Home medications: home medication list seen and reviewed Home Medications: Fluoxetine HCl [Prozac 40 mg] 40 mg PO DAILY 06/18/17 [Last Taken 06/17/17] Herbals/Supplements -Info Only 1 ea PO DAILY 06/18/17 [Last Taken 06/17/17] Ibuprofen [Motrin (*)] 400 mg PO Q6H PRN 06/18/17 [Last Taken Unknown] LORazepam [Ativan (*)] 0.5 mg PO DAILY PRN 06/18/17 [Last Taken 06/17/17] - NPO status NPO Since - Liquids (Date): 06/29/17 NPO Since - Liquids (Time): 00:01 NPO Since - Solids (Date): 06/29/17 NPO Since - Solids (Time): 00:01 - Anes Hx Anes Hx: no prior problems - Smoking Hx Smoking Status: Never smoked - Alcohol Use Alcohol Use: Rarely - Family Anes Hx Family Anes Hx: none ANE Labs/Vital Signs - Labs Result Diagrams: 06/28/17 05:20 06/26/17 05:10 - Vital Signs Blood Pressure: 131/77 Heart Rate: 72 Respiratory Rate: 18 O2 Sat (%): 94 Height: 190.5 cm Weight: 110.1 kg ANE Physical Exam - Airway Neck exam: FROM Mallampati Score: Class 3 Mouth exam: small mouth opening, cancino - Pulmonary Pulmonary: no respiratory distress, no rales or rhonchi - Cardiovascular Cardiovascular: regular rate and rhythym, no murmur, rub, or gallop - ASA Status ASA Status: III ANE Anesthesia Plan Anesthesia Plan: general endotracheal anesthesia
[2017-06-29] MEDS ORDERED: PROPOFOL/EMULSION 500 MG/50 ML BOTTLE IV ONE (17:49)
[2017-06-29] MEDS ORDERED: fentaNYL 100 MCG/2 ML INJ ONE ×3 (17:50→19:16)
[2017-06-29] MEDS ORDERED: MIDAZOLAM 2 MG/2 ML VIAL ONE (17:50)
[2017-06-29] MEDS ORDERED: ROCURONIUM 50 MG/5 ML VIAL ONE (18:02)
[2017-06-29] MEDS ORDERED: SUGAMMADEX SODIUM 200 MG/2 ML VIAL IVP ONE (18:39)
--- NOTE | 2017-06-29 18:46 | GIREPORT ---
[facility] - Endoscopy Department Patient Name: Ayan Glover Procedure Date: 06/29/2017 5:51 PM Patient Type: Inpatient Attending MD/ ER Physician: Ozzie Moraes MD Procedure: Upper GI endoscopy Indications: Dysphagia Providers: Ozzie Moraes MD Medicines: Sedation Administered by an Anesthesia Professional Complications: No immediate complications. Description of Procedure: After obtaining informed consent, the endoscope was passed under direct vision. Throughout the procedure, the patient's blood pressure, pulse, and oxygen saturations were monitored continuously. The Endoscope was intro duced through the mouth, and advanced to the third part of duodenum. The uppe r GI endoscopy was accomplished without difficulty. The patient tolerated th e procedure well. Findings: The examined esophagus was normal. The entire examined stomach was normal. The examined duodenum was normal. [Site] was. The entire examined stomach was normal. Placement of an externally tabby vable PEG with 1 T-fastener was successfully completed. The external bumper w as at the 3.5 cm marking on the tube. Estimated blood loss was minimal. Estimated Blood Loss: Estimated blood loss: none. Post Op Diagnosis: - Normal esophagus. - Normal stomach. - Normal examined duodenum. - Normal stomach. - Normal stomach. - An externally removable PEG placement was successfully completed. - No specimens collected. Recommendation: - Return patient to [facility] for [facility] care. - Please follow the post-PEG recommendations including: Nutrition consu lt for formula and volume, change dressing once per day, dry dressing only , NPO x4 hrs then water today, may use PEG today for meds and water and clean site with soap and water daily and dry thoroughly. Attending Participation: I personally performed the entire procedure. Ozzie Moraes MD Ozzie Moraes MD 06/29/2017 6:46:14 PM This report has been signed electronicallyOzzie Moraes MD Number of Addenda: 0 Note Initiated On: 06/29/2017 5:51 PM [email or web address]
[2017-06-29] MEDS ORDERED: ALBUTEROL 3 ML DEYVIAL IH PRN (19:14)
[2017-06-29] MEDS ORDERED: NALOXONE HCL 0.4 MG/ML INJ IVP PRN (19:14)
[2017-06-29] MEDS ORDERED: fentaNYL 100 MCG/2 ML INJ IVP PRN (19:14)
[2017-06-29] MEDS ORDERED: HYDROmorphONE/DILAUDID 1 MG/ML INJ IVP PRN (19:14)
[2017-06-29] MEDS ORDERED: ONDANSETRON 4 MG/2 ML VIAL IVP PRN (19:14)
[2017-06-29] MEDS ORDERED: ALBUTEROL HFA ANES ONLY 200 PUFFS/8.5 GM MDI IH ONE (19:51)
[2017-06-29] MEDS ORDERED: ONDANSETRON 4 MG/2 ML VIAL ONE (19:52)
[2017-06-29] MEDS ORDERED: GLYCOPYRROLATE 0.2 MG/1 ML VIAL ONE (19:52)
[2017-06-29] MEDS ORDERED: SUCCINYLCHOLINE CHLORIDE 200 MG/10 ML SYR IVP ONE (19:52)
[2017-06-29] MEDS ORDERED: MELATONIN 3 MG TAB TUBE SCH (21:00)
[2017-06-29] MEDS: OLANZapine 5 MG TAB TUBE SCH (21:20)
[2017-06-29] MEDS: ONDANSETRON 4 MG/2 ML VIAL IVP PRN (21:21)
[2017-06-29] MEDS ORDERED: EPINEPHrine RACEMIC INH 0.5 ML DEYVIAL IH ONE ×2 (22:25→23:30)
[2017-06-30] MEDS: NS 1,000 ML IV SCH (05:40)
--- NOTE | 2017-06-30 07:46 | SOAPPROG ---
SOAP Progress Note Assessment/Plan: Assessment: 62 yo M sp suboccipital craniotomy for evacuation of ICH Plan: neuro: stable, still agitated but making progress, improved after NG removal on zyprexa no evidence of hydrocephalus from head CT on 06/26 PEG placement 06/29 continue BP control PT/OT/ST off keppra remove everett today patient likely to need inpatient rehab ok to transfer to floor please call with neuro changes patient seen with Dr Ruiz 06/26/17 07:42 06/29/17 07:54 06/30/17 07:45 06/30/17 07:46 Subjective: no headaches, no n/v. Objective: Vital Signs Temp Pulse Resp BP Pulse Ox 36.6 C 69 14 124/75 H 98 06/30/17 04:00 06/30/17 07:31 06/30/17 07:31 06/30/17 07:31 06/30/17 07:31 Microbiology 06/27/17 16:20 - Final Sputum, Induced/Suctioned Sputum Culture - Final Staphylococcus Aureus Laboratory Results 06/28/17 05:20 06/26/17 05:10 06/29/17 06/30/17 07/01/17 05:59 05:59 05:59 Intake Total 1419 1007 Output Total 980 4550 Balance 439 -3543 PT 13.1 SEC (12.0-15.0) 06/17/17 09:30 INR 0.97 (0.83-1.16) 06/17/17 09:30 Awake, alert, confused to month/year pupils: 5 mm reactive no facial droop CINDY x 4 + light touch C/D/I ICD10 Worksheet Patient Problems: Problems Problem Status Onset Acute cerebellar hemorrhage Acute
[2017-06-30] MEDS: PROPRANOLOL HCL 10 MG TAB TUBE SCH (08:41)
[2017-06-30] MEDS: ENOXAPARIN 40 MG/0.4 ML SYR SC SCH (08:41)
[2017-06-30] MEDS: LISINOPRIL 20 MG TAB TUBE SCH (08:41)
[2017-06-30] MEDS: SENNOSIDES 17.6 MG/10 ML UDL TUBE SCH (08:42)
[2017-06-30] MEDS: FLUoxetine 20 MG CAP TUBE SCH (08:42)
--- NOTE | 2017-06-30 09:27 | PDINTPN ---
District Claims Manager Progress Note Assessment/Plan: Assessment: * S/P Cerebellar ICH: S/P Evacuation 06/17. Has improved neurologically, but slowly. Decreased mental status is resolving. * HTN: None prior to admission. Stable on current medications * Hypokalemia: Resolved. * Hyperglycemia: BSs down to low/mid 100s * Hypernatremia: Resolved, 143 yesterday * DVT prophylaxis: SCDs, mobilization as tolerated * Mental status-markedly improved. Beginning to verbalize. * Nutrition: PEG tube placed * Fever/leukocytosis. Resolved. * Staph aureus in sputum noted. Patient afebrile and no elevation white count. Will not treat at this time. Plan: [facility] Rehab today 06/30/17 09:24 Subjective: Sitting up in chair. Seems drowsy today. Objective: Vital Signs Temp Pulse Resp BP Pulse Ox 36.6 C 75 14 124/75 H 98 06/30/17 04:00 06/30/17 08:41 06/30/17 07:31 06/30/17 08:42 06/30/17 07:31 Microbiology 06/27/17 16:20 - Final Sputum, Induced/Suctioned Sputum Culture - Final Staphylococcus Aureus Laboratory Results 06/28/17 05:20 06/26/17 05:10 06/29/17 06/30/17 07/01/17 05:59 05:59 05:59 Intake Total 1419 1007 Output Total 980 4550 Balance 439 -3543 PT 13.1 SEC (12.0-15.0) 06/17/17 09:30 INR 0.97 (0.83-1.16) 06/17/17 09:30 - Time Spent With Patient Time Spent With Patient: 25 min of care time spent with patient, more than half spent in counseling or coordination of care. Physical Exam - Physical Exam General Appearance: alert EENT: PERRL/EOMI, normal ENT inspection Neck: other (Posterior incision healing) Respiratory: chest non-tender, normal breath sounds, crackles (Few) Cardiac/Chest: normal peripheral pulses, regular rate, rhythm Peripheral Pulses: 2+: carotid (R), carotid (L), femoral (R), femoral (L), dorsalis-pedis (R), dorsalis-pedis (L) Abdomen: normal bowel sounds, non-tender, soft Male Genitalia: deferred Rectal: deferred Skin: normal color, warm/dry Extremities: normal range of motion, non-tender, normal inspection, normal capillary refill Neuro/Psych: alert ICD10 Worksheet Patient Problems: Problems Problem Status Onset Acute cerebellar hemorrhage Acute
--- NOTE | 2017-06-30 10:55 | POSTANESTH ---
Post Anesthetic Evaluation Cardiovascular Status: Similar to Pre-Op Cond Respiratory Status: Normal, Stable Level of Consciousness/Mental Status: Other, See Comment Pain Control: Adequate, Prn Tx Ordered Nausea/Vomiting Control: Adequate, Prn Tx Ordered Complications Possibly Related to Anesthesia: None Noted (Discussed laryngospasm with partner. Informed to tell next anesthesia provider. Noted to have large bladder volume in PACU. Nicole placed. 1200 out. Nicole to remain. Dr. Almonte aware of bladder, laryngospasm.)
--- NOTE | 2017-06-30 11:20 | PDIAF ---
- Diagnosis Code Status: Full Code - Medication Management Discharge Medications: Medications to Continue on Transfer Fluoxetine HCl [Prozac 40 mg] 40 mg PO DAILY 06/18/17 [Last Taken 06/17/17] Acetaminophen [Tylenol 650/20.3ML Oral Liq (*)] 650 mg TUBE Q4H PRN udcup 06/30 [Last Taken Unknown] Enoxaparin [Lovenox 40 MG (*)] 40 mg SC DAILY syr 06/30/17 [Last Taken Unknown] Lisinopril [Zestril 20 mg (*)] 20 mg TUBE BID tab 06/30/17 [Last Taken Unknown] Melatonin [Melatonin 3 MG (*)] 3 mg TUBE HS tab 06/30/17 [Last Taken Unknown] OLANZapine [OLANZapine (*)] 10 mg TUBE HS tab 06/30/17 [Last Taken Unknown] Propranolol HCl [Inderal 10mg (*)] 10 mg TUBE TID tab 06/30/17 [Last Taken Unknown] amLODIPine BESYLATE [Norvasc 10 mg (*)] 5 mg TUBE DAILY tab 06/30/17 [Last Taken Unknown] diphenhydrAMINE [Benadryl Cream] 1 jefferson TP QID PRN cream 06/30/17 [Last Taken Unknown] Discharge Medications: Refer to the Discharge Home Medication list for PRN reason. PICC Care - Routine: N/A - Orders Services needed: Registered Nurse, Physical Therapy, Occupational Therapy, Speech Language Pathologist Diet Recommendation: other (tube feeds per laboratory director ) Diet Texture: Ice Chips, Oral Feeding with Speech Pathologist Only Nicole: Not applicable - Follow Up Care Current Providers and Referrals: Patient,NotPresent [Primary Care Provider] - As per Instructions
[2017-06-30 11:28] VITALS: BP 113/57; PULSE 74; RESP 16; TEMP 97.6; O2SAT 100
--- NOTE | 2017-06-30 17:46 | ASDISCHSUM ---
Discharge Information Plan Status:Inpatient Rehab Medically Cleared to Leave:06/29/2017 Discharge Date:06/30/2017 02:18 PM D/C Disposition:[facility] IP ADT D/C Disposition:[facility] IP Projected Discharge Date:06/30/2017 03:00 PM Transportation at D/C: Discharge Delay Reason: Follow-Up Date:06/30/2017 03:00 PM Discharge Slot: Final Diagnosis:Cerebellar Hemorrhage Placement Information Patient Contact Information Contact Name:KM Relationship: Address:[address] [place] [address] City:[place] Alternate Phone: [facility]/Zip Code:[place] [address] Email: Financial Information Financial Class:HMO and PPO Plans Primary Plan Desc:[employer] PPO Primary Plan Number:[id number] Secondary Plan Desc: Secondary Plan Number: Assessment Information LACE LACE Acuity / Level of Care Answers: Was the patient admitted to hospital via the emergency department? Yes: Comorbidities - select Answers: Cerebrovascular disease all that apply Emergency dept visits in Answers: 1 last 6 months Score: 5 Date Signed: 06/17/2017 12:27 PM Electronically Signed By:Smiley Mills RN [facility] CM Progress Note CM Note CM Note Notes: Patient arrived to ER via EMS "Stroke Alert" from the [facility]. Patient is visiting from [facility]. Emergency contact for his /partner, Jamie found and . Jamie reached on the former number and spoke with myself and Dr. Mccord (Neuro surgery) re consent for emergent surgery R/T hemorrhagic stroke. Consent received and verified with RN X2 (myself and charge manager). Jamie informed of plan for patient to go directly to surgery and then to the ICU. Phone numbers and contact information provided, including ICU and ER CM office. Date Signed: 06/17/2017 12:43 PM Electronically Signed By:Smiley Mills RN [facility] CM Progress Note CM Note CM Note Notes: Pt. is a 62-year-old man who had a cerebellar hemorrhage. Pt. had craniotomy. Pt. w/ slurred speech, dizziness, and tremors. Pt. visiting from [place] with his , Jamie . Jamie here and supportive. PT, OT, and [employer] all recommending Inpatient Rehab at this time. Left message with Su Lovelace at [facility] Inpt. Rehab. Still need MD orders for Rehab Consult. CM to follow for d/c POC. Date Signed: 06/18/2017 03:19 PM Electronically Signed By:Yoly Werner LCSW [facility] CM Progress Note CM Note CM Note Notes: Spoke with Jamie, patient's at length re: options at d/c. Jamie is going to go with the medical recommendation about any rehab patient may need. Jamie did inform me their insurance [employer] is expiring at the end of the year and rolling over to [employer]. Jamie would like to take his home for rehab but if patient needs to complete it here for medical stability, he is willing to do this. Jamie is interested in [facility] inpatient rehab program and Su Masseylie has been contacted. An informational packet on the program was given to Jamie. We discussed SNF rehab as well in the event patient isn't recovered enough to do inpatient. Jamie will tour [facility], [facility], and/ or [facility] to determine if any of these facilities will be acceptable to patient as a back up plan. If patient is able to travel, Jamie prefers to find a rehab facility in [place] close to home. CM will follow. Date Signed: 06/19/2017 02:59 PM Electronically Signed By:Mariah Johnson LCSW [facility] CM Progress Note CM Note CM Note Notes: Met with patient's , Jamie who is leaning towards staying in [place] so that patient can go to [facility] In-pt Rehab. Jamie had questions about: how long patient might be in In-pt?; When they return to [place], would pt go to a SNF Rehab or Out-pt?; What happens at the beginning of the year when their ins changes from [employer] to [employer]? all great questions. Jamie to visit In-pt Rehab this week, many of those questions would be better answered when he meets with Admissions. Jamie and patient are Judaism. Jamie would like to participate in as much support at [facility] as is available. He is meeting with a Vegetable Grader who is Judaism and would like to have a Family Mtg Thursday 12:00. Date Signed: 06/22/2017 02:56 PM Electronically Signed By:Christina Worrell LCSW [facility] CM Progress Note CM Note CM Note Notes: Spoke with patient's , Jamie who has moved from the hotel room to an apartment in [place] provided by Anthony patient's employer. Jamie has been discouraged about patient's neurological progress being slower in the past 3-4 days. He had a difficult time yesterday when patient was agitated and unable to get comfortable. Jamie has started a facebook page to keep family and friends informed. He thinks he will feel better now that he is out of the hotel room where patient had the stroke. Jamie is planning to do what the recommend at d/c. Inpatient rehab with [facility] is still the first choice before returning to [place]. Jamie is aware of support resources in the hospital and will let us know when he needs to utilize them again. CM will follow. Date Signed: 06/25/2017 02:25 PM Electronically Signed By:Mariah Johnson LCSW [facility] CM Progress Note CM Note CM Note Notes: Patient is finally sleeping. Spoke with Su Leahy who can get authoriztion for rehab services from [facility] on Thursday for patient. Plan remains [facility] inpatient rehab. Patient will likely be ready for d/c early next week. CM following. Date Signed: 06/26/2017 03:46 PM Electronically Signed By:Mariah Johnson LCSW [facility] CM Progress Note CM Note CM Note Notes: In-pt Rehab has ins auth for admission. Patient to get a PEG tube this afternoon. In-pt would like to admit Thursday. , Jamie very concerned about his partner and their new future. Date Signed: 06/29/2017 03:19 PM Electronically Signed By:Christina Worrell LCSW Case Management Discharge Plan Note Case Management Discharge Discharge Order Complete? Answers: Yes Patient to Obtain Answers: Other Notes: In-pt Rehab Medications Transportation Arranged Answers: [facility] Transport will Pick (Date 06/30/2017 03:00 AM & Time) Case Management Transport Answers: Yes Form Complete Family Notified Answers: Yes Notes: present Discharge Comments Notes: Patient was ready for rehab. [facility] to transport. Taran wrote specific instructions for feeding tube. GI OK'd him for discharge. Date Signed: 06/30/2017 05:45 PM Electronically Signed By:Christina Worrell LCSW Intervention Information
== END 2017-06-30 14:18 | DRG 23 ==
LOC: EDBD 09:33 → F2N 16:06
PROVIDERS: ADMIT Neurological Surgery; ATTEND Neurological Surgery
PROC: 009200Z Drainage of Dura Mater with Drainage Device, Open Approach (ICD-10-PCS; principal; 2017-06-17 10:30)
PROC: 00CC0ZZ Extirpation of Matter from Cerebellum, Open Approach (ICD-10-PCS; principal; 2017-06-17 10:30)
PROC: 02HV33Z Insertion of Infusion Device into Superior Vena Cava, Percutaneous Approach (ICD-10-PCS; 2017-06-18)
PROC: 0D163J4 Bypass Stomach to Cutaneous with Synthetic Substitute, Percutaneous Approach (ICD-10-PCS; 2017-06-29)
DX: I61.4 Nontraumatic intracerebral hemorrhage in cerebellum (principal); G93.6 Cerebral edema; E87.0 Hyperosmolality and hypernatremia; I10 Essential (primary) hypertension; E87.6 Hypokalemia; R73.9 Hyperglycemia, unspecified; B95.8 Unspecified staphylococcus as the cause of diseases classified elsewhere; R13.10 Dysphagia, unspecified
CPT/HCPCS: 82947-QW; 92507-GN; 92523-GN; 92526-GN; 92610-GN; 96365; 97112-GO; 97112-GP; 97116-GP; 97161-GP; 97166-GO; 97530-GO; 97530-GP; C1713; C1729; C1751; C1763; J0171; J0330; J0360; J0690; J1170; J1650; J1815; J1940; J1953; J2060; J2250; J2370; J2405; J2704; J2800; J3010; J3490; Q9967

== ENCOUNTER 2017-06-29 15:36 | Inpatient (IN) | payer OTHER ==
[2017-06-30] MEDS ORDERED: TAMSULOSIN HCL 0.4 MG CAP PO SCH (16:15)
[2017-06-30] MEDS ORDERED: ACETAMINOPHEN 650 MG/20.3 ML UDCUP TUBE PRN (16:33)
[2017-06-30] MEDS ORDERED: DIPHENHYDRAMINE CREAM TP PRN (16:33)
--- NOTE | 2017-06-30 17:05 | PDOREHIP ---
Admission IRF-[facility] - Admission - 3 Day Assessment Period Admission Date/Day 1: 06/30/17 Day 2: 07/01/17 Day 3: 07/02/17 - Active Diagnoses Comorbidities and Co-existing Conditions at Admission: 42231. None of the Above - Skin Conditions Unhealed Pressure Ulcer (1 or more/Stage 1 or >)-Admission: 0. No
--- NOTE | 2017-06-30 17:31 | GHP ---
[f rep st] HISTORY AND PHYSICAL POST ADMISSION PHYSICIAN EVALUATION AND REHABILITATION TREATMENT PLAN. DATE OF ADMISSION: 06/30/2017 DATE OF EVALUATION: 06/30/2017. TIME OF EVALUATION: 1515. REFERRING FACILITY: [facility]. REFERRING PHYSICIAN: Dr. Pak IMPAIRMENT GROUP: 1.9. DATE OF ONSET: 06/17/2017. ADDITIONAL CONSULTING PHYSICIANS: Neurology, Dr. Pelaez. REHABILITATION DIAGNOSIS: Debility status post cerebellar hemorrhage and craniotomy and evacuation. ETIOLOGIC DIAGNOSIS: Other Stroke. DATE OF SURGERY: 06/17/2017. HISTORY OF PRESENT ILLNESS: This patient was admitted to [facility] on 06/17/2017 with a severe headache, nausea, vomiting , and diaphoresis. He became lethargic and with slurred speech while in the emergency department. Head CT showed acute intraparenchymal hemorrhage in the midline cerebellar vermis. CT angiogram was normal. He was taken emergently to surgery because of mass effect, edema, and early tonsillar herniation. Dr. Mccord performed a posterior fossa craniotomy for evacuation of cerebellar hematoma and placement of an external ventricular drain. He had a complicated hospital course including elevated blood pressures requiring IV blood pressure medication, hypokalemia, hyperglycemia, PICC line placement for medication and hydration on 06/18/2017, dysphagia, agitation and restlessness, and eventual placement of a PEG tube on 06/30/2017. The endoventricular drain was discontinued on 06/23/2017. He had urinary retention and placement of a Nicole catheter today. He had delirium in the hospital and agitation. He was treated with Precedex, which was weaned. He was started on Zyprexa and he was started on melatonin. He had dysphagia and received nutrition and hydration via NG tube until the day before discharge when a PEG tube was placed. There was an induced sputum, possibly related to fever and leukocytosis as well as hypoxia and need for oxygen. The sputum grew Staph aureus, methicillin sensitive. However, he was not considered to have pneumonia and no treatment was initiated. Chest x-ray on 06/28/2017 showed an improving right lung infiltrate, assessed as pneumonia versus neurogenic pulmonary edema. Most recent head CT on 2016 ruled out obstructive hydrocephalus and showed edema and residual hemorrhage in the cerebellar vermis. CBC on 06/28/2017 showed an elevated white count at 13.26. He had anemia with a hemoglobin of 11.1 and hematocrit of 34.1. This had worsened from the previous day when it was 11.9 and 35.6. There was no left shift. Sed rate was 44. Most recent serum chemistry on 06/26/2017 showed normal renal function and electrolytes, but for an elevated BUN at 28. Creatinine was 0.9. Blood sugars were elevated in the 120s to 150s range over the previous several days. Echocardiogram showed mild concentric LV hypertrophy, global hypercontractility of the left ventricle and an ejection fraction of 70% to 75%. There was trivial to mild mitral regurgitation and trivial tricuspid valve regurgitation, PRECAUTIONS: He is a fall risk. He has aspiration precautions. ACTIVE COMORBIDITIES: He has the tier 2 comorbidity of dysphagia. Otherwise, he has no active tier 1, tier 2, or tier 3 comorbidities. PAST MEDICAL HISTORY: Panic disorder. PAST SURGICAL HISTORY: He has had a tonsillectomy and a hernia repair. He may have had a surgery in childhood for a bone spur on the right knee. MEDICATIONS: He was taking fluoxetine. Emergency department recorded the dose as 20 mg, but his partner reports a dose of 40 mg. Admission medications: 1. Fluoxetine 40 mg p.o. daily. 2. Acetaminophen 650 mg per tube q.4 hours p.r.n. 3. Enoxaparin 40 mg subcutaneous daily. 4. Lisinopril 20 mg per tube b.i.d. 5. Melatonin 3 mg per tube q.h.s. 6. Olanzapine 10 mg per tube q.h.s. 7. Propranolol 10 mg per tube t.i.d. 8. Amlodipine 5 mg per tube daily. 9. Diphenhydramine cream 1 application topical q.i.d. p.r.n. ALLERGIES: There are no known drug allergies. FAMILY HISTORY: His father had coronary artery disease early in life. PSYCHOSOCIAL HISTORY: He is and lives with his partner. 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 He is a nonsmoker. He does use alcohol. REVIEW OF SYSTEMS: Very difficult to obtain due to unintelligible speech. He indicates that he has a headache. He denies pain otherwise. He denies cough or dyspnea. He feels hungry and thirsty. He denies abdominal pain and otherwise to the extent that it could be determined, a 10-point review of systems was negative. PHYSICAL EXAMINATION: VITAL SIGNS: Blood pressure is 117/74, heart rate is 68 , respiratory rate is 16, oxygenation saturation is 89% on room air. Temperature is 36.9 degrees centigrade. His weight is 110 kg for a body mass index of 30.3, per the chart, but he does not appear to be obese, so this may be an error, either in his height or his weight. GENERAL: This is a well- nourished, well-developed man lying in bed in hospital gown, cooperative, and in no acute distress. He moves his arms with a large amplitude, not rhythmically and likely volitionally. He is also able to stop moving. HEENT: Extraocular movements are intact. Pupils are equal, round, reactive to light. Mucous membranes are very dry. Dentition is in good condition. He has a moderately crowded airway, Mallampati class 2. NECK: Supple. HEART: There is a regular rate and rhythm with no murmurs, rubs, or gallops. LUNGS: With upper respiratory rhonchi. Otherwise, are without crackles, rhonchi, or wheezes. He has normal respiratory excursion. ABDOMEN: Soft, nontender, nondistended with normoactive bowel sounds and no hepatosplenomegaly. PEG site is clean without erythema or discharge and is nontender. EXTREMITIES: There is no cyanosis, clubbing, or edema. Radial and dorsalis pedis pulses are 2+ bilaterally. NEUROLOGIC: He is alert. Orientation cannot be determined. Cranial nerves 2-12 are grossly intact. There is no focal weakness. Sensation is intact to light touch. Deep tendon reflexes are globally hypoactive. There is no extinction of sensation to double simultaneous stimulation. Plantar reflexes appear to be upgoing bilaterally. On [id number] exam, he has past pointing and an erratic path. There is no pronator drift. His speech is garbled and staccato, and unintelligible. CURRENT LEVEL OF FUNCTION: Per the preadmission screen regarding diet, feeding , and swallowing, he was n.p.o. with the PEG tube. He was noted to have [id number] dysphagia. Grooming required total assist. Toileting required total assist to use the urinal due to bilateral upper extremity ataxia. Regarding bladder, he received a Nicole catheter this morning due to urinary retention with a bladder scan recording greater than a 1000 mL. He was incontinent of bowel. For bed mobility, he required moderate assist of 2, but today he can arise to seated from supine with no assistance. Transfers required moderate assist of 2. He was noted to be impulsive and needing cues for static standing. He had ataxia and athetoid movements when attempting to place hands on the walker. Balance required maximal assistance of 2 and voice cuing. Endurance was poor to fair. He was able to ambulate 60 feet with a gait belt and bilateral upper extremity/under arm support. He was not using a device due to ataxia and athetoid movements. He needed cues to increase his stride length with fatigue. He needed assist of 3, including wheelchair following for safety. Regarding communication, he was noted to have garbled speech with severe dysarthria and apraxia of speech. Regarding cognition, he was noted to be able to follow simple commands with repetition. He was noted to be a fall risk and to be impulsive and it was noted that he could become agitated with overstimulation. IMPRESSION: This patient is a 62-year-old man who suffered a midline cerebellar hemorrhage on 06/17/2017. He had impending tonsillar herniation with edema and mass effect and required emergent craniotomy in the suboccipital region and evacuation of blood and required an intraventricular drain. He was in the ICU for the entirety of his hospital stay. He had very high blood pressures, which initially required IV medications and were eventually stabilized on his current p.o. regimen. He had significant delirium from which he is emerging still. He has moderate to severe dysphagia and required a PEG tube, and he has significant deficits to mobility and activities of daily living. His goal is to complete a rehabilitation stay to the point at which he can travel back to [place] on a commercial airline flight with his . In [place], the plan will be possibly a transfer to [facility] versus home with home health care. For a safe discharge, it is anticipated that he will achieve independence with grooming and bed mobility, modified independence for dressing and transfers, and ambulation with the least restrictive device. He likely will require supervision for bathing for safety. He will need to be able to follow multiple step commands consistently and accurately. He will be able to take nutrition with the least restrictive diet. He will have therapy on a modified schedule with Physical Therapy, Occupational Therapy, and Speech and Language Pathology for 30-60 minutes per day for each discipline on 5-7 days of the week to total 15 hours a week or more. His expected duration of stay is 21-28 days. It is anticipated that upon discharge, he will continue to benefit from home health services including a nurse's aide, occupational therapy, and physical therapy as well as a stroke support group. PLAN: 1. Debility with ataxia and significant deficits to activities of daily living and mobility following cerebellar hemorrhage, craniotomy, and evacuation of hematoma. PT and OT to optimize mobility and activities of daily living with goal of ability to travel by commercial airline back to [place], [place]. 2. Dysphagia and aphasia and possible cognitive deficits. To be assessed and treated per Speech and Language Pathology. 3. Dysphagia requiring PEG tube feeding. Continue tube feeding as per orders out of the hospital with Jevity 1.5 high ira, starting at 25 mL/h and increasing by 25 mL every 8 hours with a goal of 75 mL/h. He will be flushed with 50 mL of water every 4 hours. There will be a joint terminal attack controller consult and nutrition and hydration will be adjusted based on his needs. 4. Blood pressure management with lisinopril, amlodipine, and propranolol. It is conceivable that as he recovers from the hemorrhagic stroke he will have lower blood pressures. Blood pressure will be monitored and medications adjusted as needed. 5. Delirium. He will need close monitoring and may require a sitter. Continue olanzapine and melatonin at h.s. For now, maintain low stimulation environment and monitor hours of sleep. If possible, olanzapine will be tapered and discontinued during his stay. We will recheck CBC and BMP tomorrow morning to ensure that there is no infectious or metabolic issue that could be maintaining delirium. 6. Urinary retention of unclear etiology. He may have benign prostatic hypertrophy. His reports that premorbidly he was up at night from time to time, but it was not a significant problem and he did not have a diagnosis of BPH. Given that he does have urinary retention, I will start doxazosin and after several days, we will proceed with a voiding trial. 7. History of panic attack. Continue fluoxetine. Careful attention to the possibility of akathisia, which could be promoting delirium rather than treating panic. Consider a psychiatry consult to help sort this out. 8. Prophylaxis. He is at increased risk of deep venous thrombosis. Continue enoxaparin. Encourage mobility and will discontinue enoxaparin when his mobility is adequate. /[id number]/MODL MTDD
[2017-06-30] MEDS: PROPRANOLOL HCL 10 MG TAB TUBE SCH (20:12)
[2017-06-30] MEDS: LISINOPRIL 20 MG TAB TUBE SCH (20:12)
[2017-06-30] MEDS ORDERED: DOXAZOSIN MESYLATE 1 MG TAB PO SCH (21:00)
[2017-06-30] MEDS ORDERED: MELATONIN 3 MG TAB TUBE SCH (21:00)
[2017-06-30] MEDS ORDERED: OLANZapine 10 MG TAB TUBE SCH (21:00)
[2017-06-30] MEDS ORDERED: DOXAZOSIN MESYLATE 1 MG TAB TUBE SCH (21:00)
[2017-07-01 07:18] VITALS: TEMP 99
[2017-07-01 08:21] LABS: % IMMATURE GRANULYOCYTES 0.6 % (0.0-1.1); ABSOLUTE IMMATURE GRANULOCYTES 0.06 10^3/uL (0.00-0.10); ADD DIFF? NO; ADD MORPH? NO; ADD SCAN? NO; ATYPICAL LYMPHOCYTE FLAG 10 (0-99); FRAGMENT RBC FLAG 0 (0-99); HEMATOCRIT 37.7 % (40.0-51.0); HEMOGLOBIN 11.8 g/dL (13.7-17.5); LEFT SHIFT FLG 0 (0-99); LIPEMIA HEMOLYSIS FLAG 80 (0-99); MEAN CELL HEMOGLOBIN 31.1 pg (27.9-34.1); MEAN CELL HEMOGLOBIN CONCENTR. 31.3 g/dL (32.4-36.7); MEAN CELL VOLUME 99.2 fL (81.5-99.8); MEAN PLATELET VOLUME 11.2 fL (8.7-11.7); PLATELET CLUMPS FLAG 10 (0-99); PLATELET COUNT 501 10^3/uL (150-400); RED CELL DISTRIBUTION WIDTH 12.3 % (11.5-15.2)
[2017-07-01 08:43] LABS: ANION GAP 16 mEq/L (8-16); CALCIUM 8.8 mg/dL (8.5-10.4); CARBON DIOXIDE 32 mEq/l (22-31); CHLORIDE 114 mEq/L (97-110); CREATININE 1.2 mg/dL (0.7-1.3); GLOMERULAR FILTRATION RATE > 60; GLUCOSE 129 mg/dL (70-100); POTASSIUM 4.4 mEq/L (3.5-5.2)
[2017-07-01 08:59] LABS: SODIUM 162 mEq/L (134-144)
[2017-07-01] MEDS ORDERED: ENOXAPARIN 40 MG/0.4 ML SYR SC SCH (09:00)
[2017-07-01] MEDS ORDERED: amLODIPine BESYLATE 5 MG TAB TUBE SCH (09:00)
[2017-07-01] MEDS ORDERED: FLUoxetine 20 MG CAP TUBE SCH (09:00)
[2017-07-01] MEDS ORDERED: NS W/ 20 KCl/L 1,000 ML IV SCH (09:00)
[2017-07-01] MEDS ORDERED: 1/2 NS 1,000 ML IV SCH (09:30)
[2017-07-01] MEDS: LISINOPRIL 20 MG TAB TUBE SCH (09:40)
[2017-07-01] MEDS: PROPRANOLOL HCL 10 MG TAB TUBE SCH ×2 (09:41→16:49)
--- NOTE | 2017-07-01 10:47 | SOAPPROG ---
SOAP Progress Note Assessment/Plan: Assessment: 62-year-old man status post cerebellar hemorrhage on 06/17/2017 with suboccipital craniotomy and evacuation for impending herniation, with ataxia, a fish a and dysphasia. * Debility with ataxia and significant deficits to activities of daily living and mobility following cerebellar hemorrhage, craniotomy, and evacuation of hematoma. * PT and OT to optimize mobility and activities of daily living with goal of ability to travel by commercial airline back to [place], [place]. * Dysphagia and aphasia and possible cognitive deficits. To be assessed and treated per Speech and Language Pathology. * Dysphagia requiring PEG tube feeding. * Continue Jevity 1.5 high ira, starting at 25 mL/h at 75 mL/h. He will be flushed with 50 mL of water every 4 hours. Appreciate assistance of dietitian. * Dehydration and hypernatremia, more likely acute than chronic based on review of I & O record from the hospital. * Discussed with dietitian, pharmacist, and critical care physician Dr. Almonte, 07/01/17. * Begin rehydration [id number] at 150 cc/hr. Correction goal between acute of 2 - 3 mEq/hr and chronic of 0.5 mEq/hr: goal of 1.8 mEq/hr. * Check BMP after 2 hr and 4 hr of IV hydration. * Blood pressure management with lisinopril, amlodipine, and propranolol. * Medications held 07/01/17 due to dehydration. * Monitor closely and resume medications as BP increased with hydration. * Delirium. Improving. * Likely D/C olanzapine soon. * Continue low stimulation environment and monitor hours of sleep. * Thirst and hypernatremia likely contribute. * Urinary retention of unclear etiology. He may have benign prostatic hypertrophy. * Started doxazosin 06/30/17. * Voiding trial in several days. * History of panic attack. Continue fluoxetine. Careful attention to the possibility of akathisia, which could be promoting delirium rather than treating panic. Consider a psychiatry consult to help sort this out. * Prophylaxis. He is at increased risk of deep venous thrombosis. Continue enoxaparin. Encourage mobility and will discontinue enoxaparin when his mobility is adequate. 07/01/17 11:30 Subjective: Complains of feeling thirsty. Nursing noted systolic blood pressure of 102 and antihypertensives have been held. Has tolerated tube feeds and is at goal rate of 75 cc/hour. Objective: Vital Signs Temp Pulse Resp BP Pulse Ox 37.2 C 64 18 102/68 85 L 07/01/17 07:17 07/01/17 07:17 07/01/17 07:17 07/01/17 09:41 07/01/17 07:17 Laboratory Results 07/01/17 06:00 07/01/17 06:00 06/30/17 07/01/17 07/02/17 05:59 05:59 05:59 Output Total 1900 Balance -1900 - Time Spent With Patient Time Spent With Patient: Greater than 35 min floor time today, including more than 50% of time in coordination of care in discussion with dietitian, pharmacist and patient centered care specialist regarding management of hypernatremia, and counseling patient and regarding plan. Physical Exam - Physical Exam General Appearance: WD/WN, alert, no apparent distress Respiratory: normal breath sounds, No crackles, No rhonchi, No wheezing Cardiac/Chest: regular rate, rhythm, No edema Skin: normal color, warm/dry Neuro/Psych: alert, normal mood/affect, aphasia (Expressive) ICD10 Worksheet Patient Problems: Problems Problem Status Onset Acute cerebellar hemorrhage Acute
[2017-07-01] MEDS ORDERED: D5W 1/2 NS 1,000 ML IV SCH (11:00)
[2017-07-01] MEDS ORDERED: D5W 1,000 ML IV SCH (11:30)
[2017-07-01 14:39] VITALS: O2SAT 94
[2017-07-01 14:51] LABS: ANION GAP 14 mEq/L (8-16); CALCIUM 8.8 mg/dL (8.5-10.4); CARBON DIOXIDE 29 mEq/l (22-31); CHLORIDE 117 mEq/L (97-110); CREATININE 1.1 mg/dL (0.7-1.3); GLOMERULAR FILTRATION RATE > 60; GLUCOSE 183 mg/dL (70-100); POTASSIUM 4.3 mEq/L (3.5-5.2); SODIUM 160 mEq/L (134-144)
[2017-07-01 16:49] VITALS: RESP 16
[2017-07-01 16:50] VITALS: BP 86/57; PULSE 88
--- NOTE | 2017-07-01 18:20 | PDOREHIP ---
Admission [facility] - Admission - 3 Day Assessment Period Admission Date/Day 1: 06/30/17 Day 2: 07/01/17 Day 3: 07/02/17 Discharge [facility] - Discharge Skin Conditions Unhealed Pressure Ulcer (1 or more/Stage 1 or >)-Discharge: 0. No
[2017-07-01 18:26] LABS: ANION GAP 14 mEq/L (8-16); CALCIUM 8.8 mg/dL (8.5-10.4); CARBON DIOXIDE 29 mEq/l (22-31); CHLORIDE 116 mEq/L (97-110); CREATININE 1.3 mg/dL (0.7-1.3); GLOMERULAR FILTRATION RATE 56; GLUCOSE 171 mg/dL (70-100); POTASSIUM 4.1 mEq/L (3.5-5.2); SODIUM 159 mEq/L (134-144)
--- NOTE | 2017-07-02 03:43 | GDS ---
[f rep st] DISCHARGE SUMMARY ADMITTING DIAGNOSIS: Debility, status post cerebellar hemorrhage. DISCHARGE DIAGNOSES: 1. Debility, status post cerebellar hemorrhage. 2. Hypernatremia. HISTORY AND HOSPITAL COURSE: The patient was admitted to [facility] from [facility] where he had been treated for a cerebellar hemorrhage. He had required an emergent craniotomy and evacuation of hemorrhage due to impending brain herniation. He had had a PEG tube placed the day before his discharge from the hospital, and there had been possible interruptions in his fluid replacement. He appeared dehydrated on admission, and basic metabolic profile obtained the next day this morning revealed a sodium of 162. Fluids were begun to slowly correct sodium. However, the process was difficult due to the delays in getting results from q.2 hours blood draws due to the need for trial lawyer transport of the sample to [facility]. There was likely an erroneous report on the sample drawn after 4 hours of fluid replacement revealing a sodium of 155, which would have been overly rapid correction of sodium as it is unknown the acuity versus chronicity of his hypernatremia. The previous serum sodium determination at [facility] had been on 06/26/2017. Due to uncertainties in terms of lab results and delay in obtaining lab results, patient is transferred to [facility] where he can be monitored more closely and lab results can be obtained much more quickly. Additionally, there will be consultation with Nephrology. DISCHARGE CONDITION: Good. DISCHARGE MEDICATIONS: 1. Acetaminophen 650 mg per tube q.4 hours p.r.n. 2. Doxazosin 2 mg per tube q.h.s. 3. Fluoxetine 40 mg per tube q. day. 4. Melatonin 3 mg per tube q.h.s. 5. Olanzapine 10 mg per tube q.h.s. He was hypotensive through the day, so his antihypertensives have been held. These are propranolol 10 mg per tube t.i.d., lisinopril 20 mg per tube b.i.d., and amlodipine 5 mg per tube q. day. ISSUES TO BE ADDRESSED AT FOLLOWUP: 1. Hyponatremia. 2. Urinary retention, which likely complicated his estimate of I's and O's in the hospital. He has been begun on doxazosin, and the plan is to do a voiding trial after several days. 3. Debility, dysphagia, and expressive aphasia due to cerebellar hemorrhage. 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 Copy requested to: Dr. Joseph Guzmán #: [id number]
== END 2017-07-01 20:15 | disposition short-term general hospital (02) | DRG 949 ==
LOC: BREH 06-30 15:00
PROVIDERS: ADMIT Internal Medicine; ATTEND Internal Medicine
DX: Z48.811 Encounter for surgical aftercare following surgery on the nervous system (principal); I69.220 Aphasia following other nontraumatic intracranial hemorrhage; I69.191 Dysphagia following nontraumatic intracerebral hemorrhage; I69.893 Ataxia following other cerebrovascular disease; R41.0 Disorientation, unspecified; E87.0 Hyperosmolality and hypernatremia; E86.0 Dehydration; R33.9 Retention of urine, unspecified; Z93.1 Gastrostomy status; I10 Essential (primary) hypertension; F41.0 Panic disorder [episodic paroxysmal anxiety]
CPT/HCPCS: 92522-GN; 92610-GN; 97112-GP; 97162-GP; 97167-GO; J1650

== ENCOUNTER 2017-07-01 18:39 | Inpatient (IN) | payer OTHER ==
[2017-07-01] MEDS ORDERED: ONDANSETRON 4 MG/2 ML VIAL IVP PRN (22:20)
[2017-07-01] MEDS ORDERED: ACETAMINOPHEN 650 MG SUPP PR PRN (22:20)
[2017-07-01] MEDS ORDERED: OLANZapine 5 MG TAB TUBE SCH (22:45)
--- NOTE | 2017-07-02 00:13 | PDGENHP ---
History and Physical - Chief Complaint Hypernatremia - History of Present Illness 62 yo M with recent lengthy hospitalization for cerebellar stroke presents from rehab facility with hypernatremia. Briefly, patient was previously admitted on 06/17/17 w/ acute parenchymal hemorrhage in the midline cerebellar vermis. He was taken emergently to surgery due to mass effect and impending herniation. His hospital stay was complicated by hypertension, electrolyte abnormalities, and delirium. Patient was discharged to rehab 2 days ago requiring mod/max assist for most activities but showing some ability to communicate and displaying purposeful movements. He has severe dysphagia and is PEG tube dependent at this time. In rehab labs were checked and showed a sodium as high as 162. He received D5W @ 100 mls/hr and was transferred to [facility] for frequent lab monitoring. At the time of my evaluation patient is following commands, can answer simple yes and no questions, and can follow simple commands. He denies pain or discomfort at this time. History Information - Allergies/Home Medication List Allergies/Adverse Reactions: No Known Allergies Allergy (Unverified 06/17/17 10:10) Home Medications: Fluoxetine HCl [Prozac 40 mg] 40 mg PO DAILY 06/18/17 [Last Taken 07/01/17] I have personally reviewed and updated: family history, medical history - Past Medical History CVA, hypertension - Surgical History Additional surgical history: Emergent craniotomy performed 06/17 - Family History Additional family history: Unable to provide - Social History Smoking Status: Never smoked Review of Systems Review of Systems: Patient unable to provide ROS Physical Exam Physical Exam: Temp Pulse Resp BP Pulse Ox 37.1 C 51 L 18 108/72 98 07/01/17 21:20 07/01/17 21:20 07/01/17 21:20 07/01/17 21:20 07/01/17 21:20 O2 (L/minute) 1 Constitutional: other (Restless, displayes athetoid movements of all extremities ) Eyes: PERRL, anicteric sclera Ears, Nose, Mouth, Throat: moist mucous membranes, no oral mucosal ulcers Cardiovascular: regular rate and rhythym, no murmur, rub, or gallop Respiratory: no respiratory distress, clear to auscultation Gastrointestinal: normoactive bowel sounds, soft, non-tender abdomen Skin: warm, normal color Neurologic: sensation intact bilaterally, CN II-XII Intact Psychiatric: other (Answers simple yes/no questions, follows simple commands) Lab Data & Imaging Review 07/01/17 21:41 Sodium 158 mEq/L (134-144) H 07/01/17 21:41 Potassium 4.2 mEq/L (3.5-5.2) 07/01/17 21:41 Chloride 120 mEq/L (97-110) H 07/01/17 21:41 Carbon Dioxide 25 mEq/l (22-31) 07/01/17 21:41 Anion Gap 13 mEq/L (8-16) 07/01/17 21:41 BUN 43 mg/dL (7-23) H 07/01/17 21:41 Creatinine 1.2 mg/dL (0.7-1.3) 07/01/17 21:41 Estimated GFR > 60 07/01/17 21:41 Glucose 132 mg/dL (70-100) H 07/01/17 21:41 Calcium 8.8 mg/dL (8.5-10.4) 07/01/17 21:41 Assessment & Plan Assessment: 62 yo M who suffered a cerebellar hemorrhage on 06/17/2017 requiring surgical intervention, now PEG tube dependent, transferred to [facility] from rehab for hypernatremia. Plan: 1. Hypernatremia - Suspect inadequate free water flushes with tube feeds noting patient PEG tube dependent. Central DI is another consideration but unusual to have such level of hypernatremia with no reported polyuria. - Renal service Dr. Sanabria consulted, would like 70 cc/hr H20 through PEG, will continue this overnight - Dietary consult placed to address TFs and free water flushes - Monitor BMP q6h, monitor I/Os BID - Obtain Osms and urine Na 2. Recent cerebellar hemorrhage - Patient with significant disability but able to communicate non-verbally and follow simple commands. PEG tube placed here during last admission. 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 HTN - This was noted in the setting of recent stroke. BP now seems to be low/ normal. As a result I will hold lisinopril, propranolol, and amlodipine and monitor BP prior to restarting. 4. Delirium, agitation - This was a significant problem during recent admission. Patient required Precedex for some time in the ICU. I will continue Zyprexa and melatonin at night. Diet - NPO, dietary consult placed re: tube feeds Code - Full Ppx- LMWH Dispo - Admit to inpatient status noting need for slow correction of serum sodium and frequent lab monitoring.
[2017-07-02] MEDS: MELATONIN 3 MG TAB TUBE SCH ×2 (00:15→21:38)
[2017-07-02] MEDS ORDERED: OLANZapine 10 MG TAB TUBE SCH (00:15)
--- NOTE | 2017-07-02 04:28 | GCON ---
[f rep st] CONSULTATION DATE OF CONSULTATION: 07/01/2017 REASON FOR CONSULTATION: Opinion regarding hypernatremia. HISTORY OF PRESENT ILLNESS: The patient is a very nice 62-year-old gentleman, who is originally from the [place] area, he was visiting [place] on business earlier this month. He presented to the emerge ncy department on 06/17/2017 with headache, nausea, vomiting, and slurred speech. A CT scan of the b rain showed a cerebellar bleed with mass effect. He went to the operating room later that evening fo r decompression and subsequently remained in the hospital until 06/30/2017. During the hospital cour se, much of the time spent in the intensive care unit. He did have some difficulties with hypernatre rashad. His serum sodium on 06/17 was 143. By 06/20, it was up to 150; 06/21 at 154; 06/23 at 150; at 145; and was normal with 143 on 06/26; that is the last sodium that I have available to me kelle carrera today when laboratory was performed and his 6 o'clock sodium was 162. They started therapy with fr ee water. He was placed on a combination of D5W at 75 cc/hr, as well as D5 half-normal saline at 75 cc/hr. His serum sodium decreased appropriately between 6 a.m. and 6 p.m. from 162 to 159. His seru m creatinine at baseline is about 0.9; it was up to 1.3 today. The patient was transferred to [facility] for further evaluation and management of his hypernatremia and rising creatinine . PAST MEDICAL HISTORY: Significant for: 1. History of panic disorder. 2. Recent cerebellar hemorrhage, status post craniotomy. 3. Recent history of hypernatremia after his intracranial bleed. 4. Status post PEG placement on 06/29/2017. CURRENT MEDICATIONS: 1. Tylenol. 2. Norvasc 5 mg a day. 3. Doxazosin 2 mg at bedtime. 4. Lovenox. 5. Prozac 40 mg daily. 6. Lisinopril 20 mg twice daily. 7. Melatonin 3 mg at bedtime. 8. Inderal 10 mg 3 times daily. 9. Olanzapine 10 mg at bedtime. 10. He was on D5W and D5 half-normal saline each at 75 cc/hr. ALLERGIES: None. FAMILY HISTORY: Positive for coronary artery disease. SOCIAL HISTORY: He is . His partner is with him. They are from [place], and they were out he re on business. He does drink 4-5 glasses of wine a week. Does not use tobacco, IV or recreational drugs. REVIEW OF SYSTEMS: Is not obtainable from the patient. He is somewhat confused and difficult to und erstand with slurred and mumbling speech. A complete 12-point review of systems was performed, and the patient was unable to answer and the que stions were answered by his partner. PHYSICAL EXAMINATION: VITAL SIGNS: Blood pressures on the way from the rehabilitation facility to [facility] were in the 110-120 over 60s and 70s range. Pulse is 87, respirations 16, oxygen saturat ion today was 94%. GENERAL: He is responsive to his name, does try to communicate, but is unable to do so. HEENT: Pupils are reactive to light. Extraocular movements are intact. Mucous membranes a re dry. NECK: No lymphadenopathy or thyromegaly. HEART: Regular. No rub. No S3. LUNGS: No ral es, rhonchi, or wheezes. ABDOMEN: Flat. Bowel sounds are positive. Nontender, nondistended. He h as a PEG tube in his left upper quadrant. NEUROLOGIC: He moves all of his extremities. SKIN: No u nusual rashes or lesions. LYMPH: No palpable lymphadenopathy or lymphedema. MUSCULOSKELETAL: No e ffusions or tenderness. He moves all of his extremities. LABORATORY DATA: Today, his serum sodium at 6 a.m. was 162, at 1:30 at 160, and at 5:35 at 159 with a serum creatinine of 1.3. He was subsequently moved from the [facility] to [facility] at [facility]. IMPRESSION: Cerebellar hemorrhage with resultant free water issues. He had hypernatremia postoperat ively during his initial hospital stay, and from 06/26 through to today, his serum sodium had increas ed on 06/26 from 143 to today of 162. PLAN: 1. The patient has a free water deficit of approximately 6.5 L. I have counseled the patient and hi s partner that we need to bring his sodium down slowly. I would like to bring it down between 4 and 8 mEq/L per day to prevent cerebral edema. We will give him free water via his PEG tube at 70 cc/hr. 2. We will check sodiums every 4 hours. 3. Will check spot urine chemistries, including a sodium/creatinine osmolality. 4. We will check a urine serum osmolality. 5. I think with frequent sodium checks and blood draws, we should also place a PICC line. I have co unseled the patient and his partner regarding our plan, and all questions were answered to their sati sfaction. Thank you for allowing me to participate in the care of your patient. If there are any questions, pl ease do not hesitate to contact us. We will be following along with you. /[id number]/MODL
[2017-07-02] MEDS: ENOXAPARIN 40 MG/0.4 ML SYR SC SCH (08:38)
--- NOTE | 2017-07-02 08:48 | SOAPPROG ---
SOAP Progress Note Assessment/Plan: Assessment: elevated creat better today hypernatremia back up to 161 cerebellar bleed earlier this month very fidgety today Plan: increase free water PICC today frequent sodium checks 07/02/17 08:42 Subjective: responds to questions, but doesn't answer coherently fidgety needing 1:1 care Objective: Vital Signs Temp Pulse Resp BP Pulse Ox 36.3 C 75 18 113/67 91 L 07/02/17 04:45 07/02/17 04:45 07/02/17 04:45 07/02/17 04:45 07/02/17 04:45 Laboratory Results 07/02/17 06:05 07/01/17 07/02/17 07/03/17 05:59 05:59 05:59 Output Total 650 Balance -650 Physical Exam - Physical Exam General Appearance: thin Respiratory: No rales, No rhonchi, No wheezing Cardiac/Chest: regular rate, rhythm, No edema, No friction rub Abdomen: normal bowel sounds, non-tender, soft Extremities: No swelling Neuro/Psych: cognition abnormalities, speech abnormalities ICD10 Worksheet Patient Problems: Problems Problem Status Onset Acute cerebellar hemorrhage Acute
[2017-07-02] MEDS ORDERED: FLUoxetine 20 MG CAP PO SCH (09:00)
--- NOTE | 2017-07-02 09:35 | PDMN ---
Medical Necessity Medical necessity: M123 dehydration- A-1 hypernatremia ( 158,161,162) in pt with recent cerebellar bleed, PEG tube dependent, agitation- further eval and tx needed
[2017-07-02] MEDS ORDERED: OLANZapine 5 MG TAB PO ONE (09:58)
[2017-07-02] MEDS ORDERED: OLANZapine 5 MG TAB TUBE ONE (10:15)
[2017-07-02] MEDS ORDERED: OLANZapine 10 MG TAB TUBE ONE (10:15)
--- NOTE | 2017-07-02 10:17 | HOSPPROG ---
Hospitalist Progress Note Assessment/Plan: 62 yo M who suffered a cerebellar hemorrhage on 06/17/2017 requiring surgical intervention, now PEG tube dependent, transferred to [facility] from rehab for hypernatremia. Today is my 1st encounter with the patient. Chart reviewed. Appreciate Nephrology involvement. * hypernatremia -fluid replacement being done per Nephrology -patient requiring close monitoring with frequent sodium checks * recent cerebellar hemorrhage -continue to continue PT and OT with the goal of returning to rehab when stable * significant agitation with delirium -on last admission he required a Precedex drip and was in the intensive care unit -he is very agitated this morning will give him a dose of Zyprexa of 10 mg to see if this will calm him down -will have a very low threshold of transferring him to the intensive care unit for close monitoring if unable to be cared for on the floor * hypertension -this was noted on admission in the setting of a recent stroke -blood pressure is on the low end of normal will hold his medications at this time * plan. Continue 4 hr checks of sodium. If patient continues to be agitated he will require a higher level care. Subjective: Ayan is agitated. Objective: Vital Signs Temp Pulse Resp BP Pulse Ox 36.3 C 75 18 113/67 91 L 07/02/17 04:45 07/02/17 04:45 07/02/17 04:45 07/02/17 04:45 07/02/17 04:45 Laboratory Results 07/02/17 08:40 07/01/17 07/02/17 07/03/17 05:59 05:59 05:59 Output Total 650 Balance -650 - Physical Exam Constitutional: uncomfortable Eyes: PERRL Ears, Nose, Mouth, Throat: hearing normal Cardiovascular: regular rate and rhythym Respiratory: no respiratory distress Gastrointestinal: normoactive bowel sounds Skin: warm Psychiatric: encephalopathic, agitated, No interacting appropriately ICD10 Worksheet Patient Problems: Problems Problem Status Onset Acute cerebellar hemorrhage Acute
[2017-07-02] MEDS ORDERED: LORazepam 2 MG/ML INJ IVP ONE (11:21)
[2017-07-02] MEDS ORDERED: NS 500 ML IV PRN (13:31)
[2017-07-02] MEDS ORDERED: DEXMEDETOMIDINE IN 0.9 % NACL 100 ML IV SCH (14:00)
--- NOTE | 2017-07-02 14:40 | GCON ---
[f rep st] CONSULTATION INTENSIVE CONSULTATION. DATE OF CONSULTATION: 07/02/2017 REASON FOR ADMISSION: Hypernatremia, HISTORY OF PRESENT ILLNESS: Mr. Dillon is a 62-year-old, white male, with a recent hospitalization for cerebellar stroke. He had a fairly protracted course with emergence surgery due to mass effect. He had problems with electroly milli as well as hypertension. He had done well and was discharged to acute rehab 2 days prior. He retu rned when found to have a high sodium up to 162. Currently, patient is somewhat encephalopathic and unable to provide any history. All history is gleaned from the medical record. PAST MEDICAL HISTORY: Significant for stroke and hypertension. PAST SURGICAL HISTORY: He had a recent craniotomy. ALLERGIES: No known allergies to medications. SOCIAL HISTORY: No history of tobacco use. No current alcohol use. REVIEW OF SYSTEMS: A 10-point review of systems was attempted but the patient is unable to provide a ny answers. PHYSICAL EXAM: VITAL SIGNS: Blood pressure 140/68, pulse 84, respirations 22, temperature 36.3, oxy gen saturation 97% on 3 L. GENERAL: He is a well-developed 62-year-old, white male who is mildly ag itated and encephalopathic. HEENT: Eyes are PERRLA, EOMI. His gaze is somewhat dysconjugate. NECK: Supple. No cervical adenopathy. HEART: Regular rate and rhythm with a 2/[address] ernal border without radiation. LUNGS: Diminished breath sounds but no wheeze. ABDOMEN: Soft, non tender. Bowel sounds are present. EXTREMITIES: No clubbing, cyanosis, or edema. LABORATORIES: Sodium is 162, potassium 3.9, chloride 119, CO2 28, BUN 37, creatinine 1.1, glucose is 127 serum osmolality is 340. Urine osmolality is 589. IMPRESSION: 1. Hypernatremia. 2. Cerebellar stroke. 3. History of panic disorder. 4. Hypertension. 5. Recent percutaneous endoscopic gastrostomy placement. 6. Significant agitation. RECOMMENDATIONS: 1. Agree with Nephrology consult. 2. Close monitoring with sodiums. 3. Agree with Precedex for his agitation. 4. PT, OT. 5. Close cardiovascular monitoring including blood pressure. 6. Consider repeat CT scan. /[id number]/MODL
--- NOTE | 2017-07-02 14:51 | NEUSURGPN ---
Date of Surgery: 06/17/17 (Occipital craniotomy for cerebellar hematoma evacuation) Post Op Day: 15 Assessment/Plan: Mr. Dillon was transferred back to [facility] from rehab for correction of acute to subacute hypernatremia. His neurologic status has seemed to regress somewhat, and he currently appears delirious. There are no focal findings on limited exam. Recs: - Slowly correct hypernatremia to avoid cerebellar edema; appreciate nephrology recs - Wean/stop Precedex as soon as safely able - Obtain head CT to reassess hemorrhage/ventricles/edema - Continue goal BP <130/80 mm Hg - MRI brain without and with contrast is still pending, but unable to get due to agitation - Dispo plan will be return to rehab once medical issues have been appropriately addressed - Neurosurgery will follow Subjective: Nonverbal. He has been somnolent but physically agitated for most of the day. Per nursing, he has gotten Zyprexa and Ativan today, and is now on Precedex IV gtt. Objective: Patient is lying in bed, eyes closed, with spontaneous non-purposeful movements. Opens eyes to persistent prompting, inconsistently following commands, nonverbal PERRL, conjugate gaze, face symmetric at rest SAMANIEGO symmetrically Incisions: Posterior midline and right frontal scalp all clean, dry, and intact without erythema; some small dry scabs on posterior incision Urinary Catheter in Place: Yes Urinary Catheter Indication: Accurate I & O Required - Physician Patient Seen by .: Other (Dr. Ruiz) Neurosurgery Physical Exam - Vitals, I&O, Labs I and O 07/01/17 07/02/17 07/03/17 05:59 05:59 05:59 Intake Total 1125 Output Total 650 400 Balance -650 725 Weight 94.6 kg Intake: Tube Feeding (ml) 125 Tube Flush (ml) 1000 Output: Urine (ml) 650 400 Catheter 650 400 Other: Intake Quantity Yes Sufficient Vital Signs Temp Pulse Resp BP Pulse Ox 36.3 C 67 16 114/57 L 98 07/02/17 04:45 07/02/17 14:00 07/02/17 14:00 07/02/17 14:00 07/02/17 14:00 Laboratory Results 07/02/17 13:40 ICD10 Worksheet Patient Problems: Problems Problem Status Onset Acute cerebellar hemorrhage Acute
--- NOTE | 2017-07-02 15:22 | CPEKG ---
Heart Rate: 77 RR Interval: 779 P-R Interval: 180 QRSD Interval: 92 QT Interval: 420 QTC Interval: 476 P [place]: 11 QRS [place]: -25 T Wave [place]: 2 EKG Severity - BORDERLINE ECG - EKG Impression: SINUS RHYTHM EKG Impression: BORDERLINE LEFT AXIS DEVIATION EKG Impression: BORDERLINE PROLONGED QT INTERVAL EKG Impression: COMPARED WITH HR FASTER. QT NOW PROLONGED Electronically Signed By: Arminda Eldridge 02-Jul-2017 17:14:52
--- NOTE | 2017-07-02 15:45 | ASMTCMCOM ---
CM Note CM Note Notes: Patient was sent to ED from [facility] Inpatient rehab last night with acute hypernatremia. He was hospitalized at [facility] from 06/17 - 06/30 after an acute cerebellar stroke and discharged to inpatient rehab on 06/30. Today, he is somnolent but agitated. I spoke with Su at inpatient rehab who says that patient's Jamie is here from [place] and has expressed that he would like to take patient home for rehab there when he is medically stable. PT/OT/POT FEEDER ordered and pending. We will assist with discharge planning when patient's needs become more clear. Su will also attempt to check in on patient and . Current CM Discharge plan: TBD Date Signed: 07/02/2017 03:45 PM Electronically Signed By:Keri Medina RN
--- NOTE | 2017-07-03 07:45 | SOAPPROG ---
SOAP Progress Note Assessment/Plan: Assessment: elevated creat better today hypernatremia sodium better today, 156, appropriate decrease over past 24 hours cerebellar bleed earlier this month very fidgety yesterday, now in ICU, on light sedation Plan: free water, keep at current rate PICC yesterday, seems to be working well frequent sodium checks 07/02/17 08:42 07/03/17 07:38 Subjective: still fidgety, but less so than yesterday will respond to my voice not coherent Objective: Vital Signs Temp Pulse Resp BP Pulse Ox 37.1 C 64 16 104/54 L 99 07/02/17 20:00 07/03/17 06:00 07/03/17 06:00 07/03/17 06:00 07/03/17 06:00 Laboratory Results 07/03/17 05:00 07/02/17 07/03/17 07/04/17 05:59 05:59 05:59 Intake Total 3761 Output Total 650 1600 Balance -650 2161 Physical Exam - Physical Exam General Appearance: other (arouseable) Respiratory: No rales, No rhonchi, No wheezing Cardiac/Chest: regular rate, rhythm, No edema, No friction rub Abdomen: normal bowel sounds, non-tender, soft, other (PEG RUQ) Skin: warm/dry Extremities: No pedal edema (not communicative) ICD10 Worksheet Patient Problems: Problems Problem Status Onset Acute cerebellar hemorrhage Acute
--- NOTE | 2017-07-03 07:57 | NEUSURGPN ---
Assessment/Plan: Mr. Dillon was transferred back to [facility] from rehab for correction of acute to subacute hypernatremia. His neurologic status has seemed to regress somewhat, and he currently appears delirious. There are no focal findings on limited exam. Recs: - Slowly correct hypernatremia to avoid cerebellar edema; appreciate nephrology recs - Wean/stop Precedex as soon as safely able - Head CT improved. - Continue goal BP <130/80 mm Hg - MRI brain without and with contrast is still pending, but unable to get due to agitation. - Dispo plan will be return to rehab once medical issues have been appropriately addressed. No further acute neurosurgical issues at this time. Will follow peripherally. - Discussed with Dr. Ruiz, please notify NS with any change in neuro/motor exam. Subjective: Denies any headaches, dizziness Objective: PERRLA some gargle speech. Awake alert. Follows all commands. Strength equal bilaterally Neurosurgery Physical Exam - Vitals, I&O, Labs I and O 07/02/17 07/03/17 07/04/17 05:59 05:59 05:59 Intake Total 3761 Output Total 650 1600 Balance -650 2161 Weight 94.6 kg Intake: IV Infused (ml) 55 Dexmedetomidine in 0.9 % 55 NaCl 100 ml @ Titrate IV CONT MARIO Rx#:[id number] Tube Feeding (ml) 1354 Tube Flush (ml) 2352 Output: Urine (ml) 650 1600 Catheter 650 1600 Other: Intake Quantity Yes Sufficient Vital Signs Temp Pulse Resp BP Pulse Ox 37.1 C 64 16 104/54 L 99 07/02/17 20:00 07/03/17 06:00 07/03/17 06:00 07/03/17 06:00 07/03/17 06:00 Laboratory Results 07/03/17 05:00 ICD10 Worksheet Patient Problems: Problems Problem Status Onset Acute cerebellar hemorrhage Acute
--- NOTE | 2017-07-03 09:19 | PDINTPN ---
Airport Clerk Progress Note Assessment/Plan: Assessment/plan * Cerebellar stroke * Encephalopathy-improved, though still impulsive * Hyponatremia-very slowly improving -per Nephrology * Hypertension * Recent PEG placement * PT/OT * Out of bed Case discussed with nursing. Will discuss with family when they arrive Subjective: Resting comfortably in bed. Verbal but non intelligible Objective: Vital Signs Temp Pulse Resp BP Pulse Ox 36.7 C 64 15 125/85 H 95 07/03/17 08:00 07/03/17 08:00 07/03/17 08:00 07/03/17 08:00 07/03/17 08:00 Laboratory Results 07/03/17 05:00 07/02/17 07/03/17 07/04/17 05:59 05:59 05:59 Intake Total 3761 Output Total 650 1600 Balance -650 2161 - Time Spent With Patient Time Spent With Patient: 25 min of time spent with patient. Over half of which involved with coordination of care Physical Exam - Physical Exam General Appearance: alert, no apparent distress EENT: PERRL/EOMI, normal ENT inspection Neck: non-tender, full range of motion, supple, normal inspection Respiratory: chest non-tender, lungs clear, normal breath sounds Cardiac/Chest: normal peripheral pulses, regular rate, rhythm Abdomen: normal bowel sounds, non-tender, soft Male Genitalia: deferred Rectal: deferred Skin: normal color, warm/dry Extremities: normal range of motion, non-tender, normal inspection, normal capillary refill Neuro/Psych: alert, No oriented x 3 ICD10 Worksheet Patient Problems: Problems Problem Status Onset Acute cerebellar hemorrhage Acute
[2017-07-03] MEDS ORDERED: LACTULOSE 20 GM/30 ML UDCUP PO PRN (10:27)
[2017-07-03] MEDS ORDERED: BISACODYL 10 MG SUPP PR PRN (10:27)
[2017-07-03] MEDS ORDERED: POLYETHYLENE GLYCOL 3350 17 GM PKT PO PRN (10:27)
[2017-07-03] MEDS ORDERED: MAGNESIUM HYDROXIDE 30 ML UDCUP PO PRN (10:27)
[2017-07-03] MEDS ORDERED: LORazepam 2 MG/ML INJ IVP PRN (10:30)
--- NOTE | 2017-07-03 11:32 | HOSPPROG ---
Hospitalist Progress Note Assessment/Plan: 62 yo M a/w cerebellar hemorrhage on 06/17/2017 requiring surgical intervention , now PEG tube dependent, transferred to [facility] from rehab for hypernatremia. * hypernatremia - Na trending down nicely -cont free water replacement per nephrology -frequent Na checks -dc vitale * recent cerebellar hemorrhage -continue to continue PT and OT with the goal of returning to rehab when stable * significant agitation with delirium. Off Precedex -cont hs zyprexa, prn ativan * hypertension - remains normotensive -cont to hold anti-hypertensives, resume as clinically indicated * dispo - cont inpt Subjective: Pt up in chair. He is agitated about the vitale catheter. Per RN and aide, he had been voiding spontaneously, no recent retention. No fevers/ chills. A bit unsteady on his feet. Objective: Vital Signs Temp Pulse Resp BP Pulse Ox 36.7 C 62 16 129/69 H 94 07/03/17 08:00 07/03/17 10:00 07/03/17 10:00 07/03/17 10:00 07/03/17 10:00 07/02/17 07/03/17 07/04/17 05:59 05:59 05:59 Intake Total 3761 Output Total 650 1600 Balance -650 2161 - Physical Exam Constitutional: no apparent distress Eyes: PERRL Ears, Nose, Mouth, Throat: moist mucous membranes Cardiovascular: regular rate and rhythym Respiratory: no respiratory distress, clear to auscultation Gastrointestinal: normoactive bowel sounds, soft, non-tender abdomen Skin: warm Musculoskeletal: abnormal gait, generalized weakness Psychiatric: encephalopathic, anxious ICD10 Worksheet Patient Problems: Problems Problem Status Onset Acute cerebellar hemorrhage Acute
[2017-07-03] MEDS: SENNOSIDES/DOCUSATE SODIUM TAB PO SCH ×2 (11:49→20:11)
[2017-07-03] MEDS: ENOXAPARIN 40 MG/0.4 ML SYR SC SCH (11:51)
[2017-07-03] MEDS: FLUoxetine 20 MG CAP TUBE SCH (11:52)
--- NOTE | 2017-07-03 14:15 | ASMTCMCOM ---
CM Note CM Note Notes: Per Su at [facility], patient's insurance will change to [employer] 07/13/17. He still does not have a policy/member number. Su also looked into acute inpt rehab facilities in the [facility] (where patient and Jamie hope to transfer him to upon discharge). She has communicated this to [facility]; below is the body of an email that Su sent to [facility]: I wanted to send you the information I have been able to obtain re: acute IP rehabilitation facilities in the [facility]. Two that are in/around the [facility] are: Cm in [facility] in [place] I was able to speak with Adelina Recinos in the Admissions Dept. at [facility] and she was able to confirm they accept [employer] insurance. The phone number for admissions is: [phone]. Adelina mentioned, if you were to choose [facility], her colleague Celi Kapoor would be the boot and saddle repair person moving forward. CM will follow for discharge planning. Date Signed: 07/03/2017 02:15 PM Electronically Signed By:Keri Medina RN
[2017-07-03] MEDS: OLANZapine 10 MG TAB TUBE SCH (20:11)
[2017-07-03] MEDS: MELATONIN 3 MG TAB TUBE SCH (20:11)
[2017-07-03] MEDS ORDERED: SENNOSIDES/DOCUSATE SODIUM TAB PO SCH (21:00)
--- NOTE | 2017-07-04 08:43 | PDINTPN ---
Addressograph Operator Progress Note Assessment/Plan: Assessment/plan * Cerebellar stroke * Encephalopathy-improved, though still impulsive, with occasional agitation * Hyponatremia-improved. Sodium at 1:51 a.m. -per Nephrology * Hypertension-blood pressure stable * Recent PEG placement * Nutrition-tolerating tube feeds * PT/OT * Out of bed Overall improving Case discussed with nursing. Subjective: Resting comfortably. Some agitation this morning requiring Ativan. Objective: Vital Signs Temp Pulse Resp BP Pulse Ox 36.0 C 59 L 16 116/70 91 L 07/04/17 05:51 07/04/17 05:51 07/04/17 05:51 07/04/17 05:51 07/04/17 05:51 Laboratory Results 07/04/17 04:51 07/03/17 07/04/17 07/05/17 05:59 05:59 05:59 Intake Total 3761 4612 Output Total 1600 1400 Balance 2161 3212 Laboratory Results 07/04/17 04:51 07/04/17 07/04/17 07/03/17 04:51 00:20 17:35 Sodium 151 mEq/L H mEq/L 153 mEq/L H mEq/L 153 mEq/L H mEq/L (134 - 144) (134 - 144) (134 - 144) Potassium Calcium Phosphorus Albumin 07/03/17 07/03/17 07/02/17 11:14 05:00 19:50 Sodium 157 mEq/L H mEq/L 156 mEq/L H mEq/L (134 - 144) (134 - 144) Potassium 4.9 mEq/L mEq/L (3.5 - 5.2) Calcium 8.8 mg/dL mg/dL (8.5 - 10.4) Phosphorus 5.4 mg/dL H mg/dL (2.5 - 4.5) Albumin 3.1 g/dL L g/dL (3.5 - 5.0) 07/02/17 07/02/17 18:12 13:40 Sodium 158 mEq/L H mEq/L 158 mEq/L H mEq/L (134 - 144) (134 - 144) Potassium Calcium Phosphorus Albumin 06/27/17 16:20 - Final Sputum, Induced/Suctioned Sputum Culture - Preliminary Staphylococcus Aureus - Time Spent With Patient Time Spent With Patient: 25 min of time spent with patient, over half of which involved coordination of care and counseling Physical Exam - Physical Exam General Appearance: other (Somnolent), No alert EENT: PERRL/EOMI Neck: non-tender, full range of motion, supple, normal inspection Respiratory: chest non-tender, lungs clear, normal breath sounds Cardiac/Chest: normal peripheral pulses, regular rate, rhythm Peripheral Pulses: 2+: carotid (R), carotid (L), femoral (R), femoral (L), dorsalis-pedis (R), dorsalis-pedis (L) Abdomen: normal bowel sounds, non-tender, soft Male Genitalia: deferred Rectal: deferred Skin: normal color, warm/dry Extremities: normal range of motion, non-tender ICD10 Worksheet Patient Problems: Problems Problem Status Onset Acute cerebellar hemorrhage Acute
[2017-07-04] MEDS: ENOXAPARIN 40 MG/0.4 ML SYR SC SCH (09:02)
[2017-07-04] MEDS: FLUoxetine 20 MG CAP TUBE SCH (09:03)
[2017-07-04] MEDS: SENNOSIDES/DOCUSATE SODIUM TAB PO SCH ×2 (09:03→20:14)
--- NOTE | 2017-07-04 12:11 | HOSPPROG ---
Hospitalist Progress Note Assessment/Plan: 62 yo M a/w cerebellar hemorrhage on 06/17/2017 requiring surgical intervention , PEG tube dependent, transferred to [facility] from rehab for hypernatremia. * hypernatremia - likely due to insufficient free water in tube feeds. Na trending down nicely -cont free water replacement per nephrology -frequent Na checks * urinary retention - vitale d/c'd yesterday, but had ongoing retention. -vitale replaced -pt partner insists on urology consult inpt, Dr. Villalobos will see pt, appreciate input * recent cerebellar hemorrhage -continue PT and OT with the goal of returning to rehab when stable * significant agitation with delirium. Off Precedex -cont hs zyprexa, prn ativan * hypertension - remains normotensive -cont to hold anti-hypertensives, resume as clinically indicated * dispo - cont inpt Subjective: Pt intermittently agitated, non-sensical. Objective: Vital Signs Temp Pulse Resp BP Pulse Ox 36.8 C 79 18 105/73 95 07/04/17 10:30 07/04/17 10:30 07/04/17 10:30 07/04/17 10:30 07/04/17 10:30 07/03/17 07/04/17 07/05/17 05:59 05:59 05:59 Intake Total 3761 4612 Output Total 1600 1400 Balance 2161 3212 - Physical Exam Constitutional: no apparent distress Eyes: PERRL Ears, Nose, Mouth, Throat: moist mucous membranes Cardiovascular: regular rate and rhythym Respiratory: no respiratory distress Gastrointestinal: normoactive bowel sounds, soft, non-tender abdomen Skin: warm Psychiatric: encephalopathic ICD10 Worksheet Patient Problems: Problems Problem Status Onset Urinary retention Acute Acute cerebellar hemorrhage Acute
[2017-07-04] MEDS ORDERED: LORazepam 2 MG/ML INJ ONE (12:20)
[2017-07-04] MEDS: LORazepam 2 MG/ML INJ IVP PRN (12:24)
--- NOTE | 2017-07-04 14:23 | SOAPPROG ---
CHIVO Progress Note Assessment/Plan: Assessment: Urinary retention Acute continue vitale and will see pt Thursday Plan: continue vitale 07/04/17 14:22 Subjective: retention--reviewed chart Objective: Vital Signs Temp Pulse Resp BP Pulse Ox 36.8 C 63 20 105/73 98 07/04/17 10:30 07/04/17 12:00 07/04/17 12:00 07/04/17 12:00 07/04/17 12:00 Laboratory Results 07/04/17 11:46 07/03/17 07/04/17 07/05/17 05:59 05:59 05:59 Intake Total 3311 4690 Output Total 1600 1400 Balance 2161 3212 ICD10 Worksheet Patient Problems: Problems Problem Status Onset Urinary retention Acute Acute cerebellar hemorrhage Acute - ICD10 Problem Qualifiers (1) Urinary retention
--- NOTE | 2017-07-04 17:39 | ASMTCMCOM ---
CM Note CM Note Notes: Spoke w/Dr Almonte today who said that pt's family is interested in acute rehabs in area other than our in pt rehab. I attempted to meet w/family but they were not present at that time. CM will try again on Thursday. Date Signed: 07/04/2017 05:39 PM Electronically Signed By:Milka Hill RN
[2017-07-04] MEDS: MELATONIN 3 MG TAB TUBE SCH (20:18)
[2017-07-04] MEDS: OLANZapine 10 MG TAB TUBE SCH (20:18)
--- NOTE | 2017-07-04 20:28 | SOAPPROG ---
SOAP Progress Note Assessment/Plan: Assessment: 1. JORGE - -Resolved 2. Hypernatremia - -Sodium better, on FWF 150cc qhr -Cont same regimen with monitoring Plan: 07/04/17 20:26 07/04/17 20:27 Subjective: No c/o Objective: Vital Signs Temp Pulse Resp BP Pulse Ox 36.8 C 67 14 130/70 H 92 07/04/17 19:49 07/04/17 19:49 07/04/17 19:49 07/04/17 19:49 07/04/17 19:49 Laboratory Results 07/04/17 17:45 07/03/17 07/04/17 07/05/17 05:59 05:59 05:59 Intake Total 3761 4612 2661 Output Total 1600 1400 900 Balance 2161 8732 1761 Physical Exam - Physical Exam General Appearance: WD/WN Respiratory: lungs clear Cardiac/Chest: regular rate, rhythm Extremities: No swelling ICD10 Worksheet Patient Problems: Problems Problem Status Onset Urinary retention Acute Acute cerebellar hemorrhage Acute
[2017-07-05] MEDS: LORazepam 2 MG/ML INJ IVP PRN ×2 (01:03→21:12)
[2017-07-05] MEDS ORDERED: MAGNESIUM HYDROXIDE 30 ML UDCUP TUBE PRN (08:00)
[2017-07-05] MEDS ORDERED: LACTULOSE 20 GM/30 ML UDCUP TUBE PRN (08:00)
--- NOTE | 2017-07-05 09:33 | PDINTPN ---
Potato Chip Fryer Progress Note Assessment/Plan: Assessment/plan * Cerebellar stroke * Encephalopathy-improved, though still impulsive, with occasional agitation, especially at night * Hyponatremia-improved. Sodium now at 143 -per Nephrology * Hypertension-blood pressure stable * Urinary retention-appreciate Urology input. -continue Nicole * Recent PEG placement * Nutrition-tolerating tube feeds * PT/OT * Out of bed Overall improving Case discussed with nursing. Subjective: Resting comfortably. No current agitation Objective: Vital Signs Temp Pulse Resp BP Pulse Ox 36.4 C 73 16 127/96 H 92 07/05/17 03:55 07/05/17 08:16 07/05/17 08:16 07/05/17 08:37 07/05/17 08:16 Laboratory Results 07/05/17 08:30 07/04/17 07/05/17 07/06/17 05:59 05:59 05:59 Intake Total 4612 4203 Output Total 1400 1800 Balance 3212 2403 - Time Spent With Patient Time Spent With Patient: 25 min of time spent with patient, over half involved coordination of care or counseling Physical Exam - Physical Exam General Appearance: other (Drowsy), No alert EENT: PERRL/EOMI Neck: non-tender, full range of motion, supple, normal inspection Respiratory: chest non-tender, lungs clear, normal breath sounds Cardiac/Chest: normal peripheral pulses, regular rate, rhythm Peripheral Pulses: 2+: carotid (R), carotid (L), femoral (R), femoral (L), dorsalis-pedis (R), dorsalis-pedis (L) Abdomen: normal bowel sounds, non-tender, soft Male Genitalia: deferred Rectal: deferred Skin: normal color, warm/dry Extremities: normal range of motion, non-tender, normal inspection, normal capillary refill ICD10 Worksheet Patient Problems: Problems Problem Status Onset Urinary retention Acute Acute cerebellar hemorrhage Acute
--- NOTE | 2017-07-05 10:28 | HOSPPROG ---
Hospitalist Progress Note Assessment/Plan: # hypernatremia - d/t insufficient free H2O - water replacement per renal, correcting appropriately # cerebellar hemorrhage - s/p craniotomy - cont PT/OT # urinary retention - urology eval today, cont vitale # agitation/delirium - zyprexa # htn - BP now well controlled off meds # dispo - med surg Subjective: worked with PT/OT and TAXATION AGENT Objective: Vital Signs Temp Pulse Resp BP Pulse Ox 36.4 C 73 16 127/96 H 92 07/05/17 03:55 07/05/17 08:16 07/05/17 08:16 07/05/17 08:37 07/05/17 08:16 Laboratory Results 07/05/17 08:30 07/04/17 07/05/17 07/06/17 05:59 05:59 05:59 Intake Total 4612 4203 Output Total 1400 1800 450 Balance 3212 2403 450 chart reviewed CTH reviewed discussed with Dr Almonte and ICU team on rounds - Physical Exam Constitutional: no apparent distress, appears nourished, other (not ) Cardiovascular: regular rate and rhythym, no murmur, rub, or gallop Respiratory: no respiratory distress, no rales or rhonchi Gastrointestinal: normoactive bowel sounds, soft, non-tender abdomen, no palpable masses, other (PEG) Genitourinary: vitale in urethra ICD10 Worksheet Patient Problems: Problems Problem Status Onset Acute cerebellar hemorrhage Acute Urinary retention Acute
[2017-07-05] MEDS: SENNOSIDES 17.6 MG/10 ML UDL TUBE SCH ×2 (10:37→21:12)
[2017-07-05] MEDS: FLUoxetine 20 MG CAP TUBE SCH (11:05)
[2017-07-05] MEDS: ENOXAPARIN 40 MG/0.4 ML SYR SC SCH (11:05)
--- NOTE | 2017-07-05 16:34 | SOAPPROG ---
SOAP Progress Note Assessment/Plan: Assessment: 1. JORGE - -Resolved 2. Hypernatremia - -Sodium better, down to 143 on FWF 150cc qhr -Reduced to 150cc FWF Q3hr, now stable 145-146 -Cont same regimen with monitoring -Can reduce Na checks to Q12 tomorrow if it remains stable at current levels 3. Urinary retention - -Nicole placed -Urology to see Plan: 07/05/17 16:32 Subjective: Resting comfortably. Less agitated per partner. Objective: Vital Signs Temp Pulse Resp BP Pulse Ox 36.1 C 74 16 130/86 H 91 L 07/05/17 15:45 07/05/17 15:45 07/05/17 15:45 07/05/17 15:45 07/05/17 15:45 Laboratory Results 07/05/17 08:30 07/04/17 07/05/17 07/06/17 05:59 05:59 05:59 Intake Total 4612 4203 Output Total 1400 1800 775 Balance 3212 2403 -005 Physical Exam - Physical Exam General Appearance: no apparent distress Respiratory: normal breath sounds Cardiac/Chest: regular rate, rhythm Abdomen: non-tender Extremities: No swelling ICD10 Worksheet Patient Problems: Problems Problem Status Onset Urinary retention Acute Acute cerebellar hemorrhage Acute
[2017-07-05] MEDS: MELATONIN 3 MG TAB TUBE SCH (21:11)
[2017-07-05] MEDS: ACETAMINOPHEN 650 MG/20.3 ML UDCUP TUBE PRN (21:11)
[2017-07-05] MEDS: OLANZapine 10 MG TAB TUBE SCH (21:54)
[2017-07-06] MEDS: LORazepam 2 MG/ML INJ IVP PRN ×2 (03:08→21:35)
--- NOTE | 2017-07-06 08:02 | SOAPPROG ---
SOAP Progress Note Assessment/Plan: Assessment: Urinary retention Acute continue vitale , options are to have CIC for retention, continuous catheter or consider assessment as outpatient with UDS and cysto to assess bladder function and contributing factors for retention. Plan: continue vitale or CIC 07/06/17 08:17 Subjective: retention needs addressed and UDS / cysto as outpatient. Pt unable to give hx this AM and options for care is vitale, CIC (doubt successful at this time) . Pt relatively unresponsive to conversation at this time Objective: Vital Signs Temp Pulse Resp BP Pulse Ox 36.7 C 59 L 15 92/76 L 93 07/06/17 07:12 07/06/17 07:12 07/06/17 07:12 07/06/17 07:12 07/06/17 07:12 Laboratory Results 07/06/17 05:15 07/05/17 07/06/17 07/07/17 05:59 05:59 05:59 Intake Total 4203 1763 Output Total 1800 1825 Balance 2403 -62 Physical Exam - Physical Exam General Appearance: other (would not waken for conversation) Neck: supple Respiratory: No respiratory distress Cardiac/Chest: regular rate, rhythm Abdomen: soft Skin: warm/dry Extremities: No calf tenderness Neuro/Psych: other (would not wake for conversation) ICD10 Worksheet Patient Problems: Problems Problem Status Onset Urinary retention Acute Acute cerebellar hemorrhage Acute - ICD10 Problem Qualifiers (1) Urinary retention
[2017-07-06] MEDS: ENOXAPARIN 40 MG/0.4 ML SYR SC SCH (09:47)
[2017-07-06] MEDS: SENNOSIDES 17.6 MG/10 ML UDL TUBE SCH ×2 (09:48→21:35)
[2017-07-06] MEDS: FLUoxetine 20 MG CAP TUBE SCH (09:48)
--- NOTE | 2017-07-06 13:51 | ASMTCMCOM ---
CM Note CM Note Notes: Spoke w pt sister Rani ([phone]) and partner Jamie ([phone]) who request referrals to [facility] and [facility], they plan to tour tomorrow. Jamie also states when speaking w these facilities he would like to get a sense of how long pt may be in their program and how long it may be until pt can take a commercial flight because if it is longer than a couple of weeks Jamie may want to consider medical flight transport to an inpatient acute in [place]. CM to follow. Date Signed: 07/06/2017 01:51 PM Electronically Signed By:KIM Cazares
--- NOTE | 2017-07-06 15:05 | HOSPPROG ---
Hospitalist Progress Note Assessment/Plan: # hypernatremia - almost resolved, d/t insufficient free H2O - water replacement per renal, correcting appropriately # cerebellar hemorrhage - s/p craniotomy - cont PT/OT # urinary retention - appreciate urology eval, cont vitale # agitation/delirium - zyprexa # htn - BP now well controlled off meds # dispo - looking at inpatient rehab options Subjective: patient not verbal when I am seeing him Objective: Vital Signs Temp Pulse Resp BP Pulse Ox 36.7 C 59 L 15 92/76 L 93 07/06/17 07:12 07/06/17 07:12 07/06/17 07:12 07/06/17 07:12 07/06/17 07:12 Laboratory Results 07/06/17 11:55 07/05/17 07/06/17 07/07/17 05:59 05:59 05:59 Intake Total 4203 1763 Output Total 1800 1825 400 Balance 2873 62 400 - Physical Exam Constitutional: no apparent distress, appears nourished Cardiovascular: regular rate and rhythym, no murmur, rub, or gallop Respiratory: no respiratory distress, no rales or rhonchi, clear to auscultation Gastrointestinal: normoactive bowel sounds, soft, non-tender abdomen, no palpable masses ICD10 Worksheet Patient Problems: Problems Problem Status Onset Acute cerebellar hemorrhage Acute Urinary retention Acute
--- NOTE | 2017-07-06 17:15 | SOAPPROG ---
SOAP Progress Note Assessment/Plan: Assessment: 1. JORGE - -Resolved 2. Hypernatremia - -Sodium better, down to 143 on FWF 150cc qhr -Reduced to 150cc FWF Q3hr, now stable 145-146 -Will increase to 125cc q2hr -Cont monitoring -Can reduce Na checks to Q12 tomorrow if it remains stable at current levels 3. Urinary retention - -Nicole placed -Urology will follow Plan: 07/06/17 17:15 07/06/17 17:15 Subjective: No c/o Objective: Vital Signs Temp Pulse Resp BP Pulse Ox 36.5 C 85 16 124/80 H 92 07/06/17 15:46 07/06/17 15:46 07/06/17 15:46 07/06/17 15:46 07/06/17 15:46 Laboratory Results 07/06/17 11:55 07/05/17 07/06/17 07/07/17 05:59 05:59 05:59 Intake Total 4203 1763 Output Total 1800 1825 400 Balance 2403 -62 -400 Physical Exam - Physical Exam General Appearance: WD/WN, alert, no apparent distress Respiratory: lungs clear Cardiac/Chest: regular rate, rhythm Abdomen: No non-tender, No soft Extremities: No swelling ICD10 Worksheet Patient Problems: Problems Problem Status Onset Urinary retention Acute Acute cerebellar hemorrhage Acute
[2017-07-06] MEDS: MELATONIN 3 MG TAB TUBE SCH (21:35)
[2017-07-06] MEDS: OLANZapine 10 MG TAB TUBE SCH (21:35)
[2017-07-06] MEDS: ACETAMINOPHEN 650 MG/20.3 ML UDCUP TUBE PRN (21:35)
[2017-07-07] MEDS: LORazepam 2 MG/ML INJ IVP PRN (07:27)
[2017-07-07] MEDS: FLUoxetine 20 MG CAP TUBE SCH (08:41)
[2017-07-07] MEDS: ACETAMINOPHEN 650 MG/20.3 ML UDCUP TUBE PRN (08:41)
[2017-07-07] MEDS: SENNOSIDES 17.6 MG/10 ML UDL TUBE SCH ×2 (08:41→22:09)
[2017-07-07] MEDS: ENOXAPARIN 40 MG/0.4 ML SYR SC SCH (08:41)
--- NOTE | 2017-07-07 09:26 | SOAPPROG ---
SOAP Progress Note Assessment/Plan: Assessment:Plan: Hypernatremia-better with increased water flushes -Na 144 this morning -CPM 07/07/17 09:24 Subjective: eyes closed, responds to voice, busy morning and active per nursing tech Objective: Vital Signs Temp Pulse Resp BP Pulse Ox 36.2 C 72 16 122/81 H 96 07/07/17 08:00 07/07/17 08:00 07/07/17 08:00 07/07/17 08:00 07/07/17 08:00 Laboratory Results 07/07/17 04:30 07/06/17 07/07/17 07/08/17 05:59 05:59 05:59 Intake Total 1763 3200 Output Total 182 1700 Balance -62 1500 Physical Exam - Physical Exam General Appearance: no apparent distress EENT: normal ENT inspection Neck: normal inspection Respiratory: lungs clear, normal breath sounds, No respiratory distress Cardiac/Chest: regular rate, rhythm, No diastolic murmur, No systolic murmur Abdomen: normal bowel sounds, non-tender, soft Skin: normal color, warm/dry Extremities: No swelling ICD10 Worksheet Patient Problems: Problems Problem Status Onset Urinary retention Acute Acute cerebellar hemorrhage Acute
--- NOTE | 2017-07-07 12:11 | HOSPPROG ---
Hospitalist Progress Note Assessment/Plan: # hypernatremia - almost resolved, d/t insufficient free H2O - water replacement per renal, correcting appropriately # fall - continue sitter # cerebellar hemorrhage - s/p craniotomy - cont PT/OT # urinary retention - appreciate urology eval, cont vitale # agitation/delirium - zyprexa # htn - BP now well controlled off meds # dispo - looking at inpatient rehab options; may plan to keep inpatient here until can fly to [place] for inpt rehab there. appreciate CM assistance Subjective: discussed at length with patients and family; had a fall last night Objective: Vital Signs Temp Pulse Resp BP Pulse Ox 36.2 C 72 16 122/81 H 96 07/07/17 08:00 07/07/17 08:00 07/07/17 08:00 07/07/17 08:00 07/07/17 08:00 Laboratory Results 07/07/17 04:30 07/06/17 07/07/17 07/08/17 05:59 05:59 05:59 Intake Total 1763 3200 Output Total 1822 1700 Balance -62 1500 - Time Spent With Patient Time Spent with Patient: greater than 25 minutes Time Spent with Patient: Greater than 25 minutes spent on this patients care, greater than 50% of time spent counseling, educating, and coordinating care regarding the above mentioned plan. ICD10 Worksheet Patient Problems: Problems Problem Status Onset Acute cerebellar hemorrhage Acute Urinary retention Acute
--- NOTE | 2017-07-07 16:47 | ASMTCMCOM ---
CM Note CM Note Notes: Pt does not meet criteria for [facility] due to age and not a trauma injury. [facility] has no bed available and does not take [employer]. [facility] cannot accommodate a sitter and does not take [employer] insurance. The [employer] provider in [place] is [facility] ([place], [place] and [place]), per pt partner Jamie request a referral was sent to [facility] in [facility]. Jamie also requests a referral to [facility] in [place] (not associated w [facility] in [place]). Referral sent [facility] and a voicemail was left for admissions this afternoon. If pt can secure a bed at [facility] Jamie will secure a way to travel back to [place]. [facility] is provided medical air transport list and weed inspector lists for RN escort on commercial flight. [facility] has already done some research into a full service RN escort estimating the cost at approximately $6000. Pt now has a sitter, unknown if this will placement. CM to follow. Date Signed: 07/07/2017 04:47 PM Electronically Signed By:KIM Cazares
[2017-07-07] MEDS: MELATONIN 3 MG TAB TUBE SCH (22:09)
[2017-07-07] MEDS: OLANZapine 10 MG TAB TUBE SCH (22:09)
[2017-07-08] MEDS: LORazepam 2 MG/ML INJ IVP PRN (01:28)
[2017-07-08] MEDS: ENOXAPARIN 40 MG/0.4 ML SYR SC SCH (09:02)
[2017-07-08] MEDS: FLUoxetine 20 MG CAP TUBE SCH (09:02)
[2017-07-08] MEDS: SENNOSIDES 17.6 MG/10 ML UDL TUBE SCH ×2 (09:02→20:13)
--- NOTE | 2017-07-08 09:52 | SOAPPROG ---
SOAP Progress Note Assessment/Plan: Assessment: elevated creat back to baseline hypernatremia sodium better today, stable in the 143-145 range the past 2 days. 125 cc every 2 hours of free water cerebellar bleed earlier this month calmer than when I last saw him Discussed situation with his partner, Jamie, all questions answered Plan: free water, keep at current rate PICC in place, seems to be working well every 12 hour Na checks On the trip back to [place], as well as when he arrives in [place], he will continue to need 125 cc free water every 2 hours, can use bottled water through his PEG tube 07/02/17 08:42 07/03/17 07:38 07/08/17 09:47 07/08/17 09:53 Subjective: sleeping arousable, but goes back to sleep has been quite agitated previously, will let him get some rest. Objective: Vital Signs Temp Pulse Resp BP Pulse Ox 35.9 C L 67 12 125/99 H 95 07/08/17 08:00 07/08/17 08:00 07/08/17 08:00 07/08/17 08:00 07/08/17 08:00 Laboratory Results 07/08/17 06:40 07/07/17 07/08/17 07/09/17 05:59 05:59 05:59 Intake Total 3200 2812 Output Total 1700 875 750 Balance 1500 1937 -750 Physical Exam - Physical Exam General Appearance: no apparent distress, thin, other (arouseable) Respiratory: lungs clear, No rhonchi, No wheezing Cardiac/Chest: regular rate, rhythm, No edema, No friction rub Abdomen: normal bowel sounds, non-tender, soft, other (PEG in place) Extremities: No swelling Neuro/Psych: other (resting, arouseable, no new complaints) ICD10 Worksheet Patient Problems: Problems Problem Status Onset Urinary retention Acute Acute cerebellar hemorrhage Acute
[2017-07-08] MEDS ORDERED: OLANZapine DISINTEGR 5 MG TAB PO PRN (09:56)
--- NOTE | 2017-07-08 09:58 | HOSPPROG ---
Hospitalist Progress Note Assessment/Plan: # hypernatremia - much better, cont free H2O flushes Q2H - currently check Na Q12 # fall - continue sitter # cerebellar hemorrhage - s/p craniotomy - cont PT/OT # urinary retention - appreciate urology eval, cont vitale # agitation/delirium - zyprexa HS, will add prn doses, try to minimize ativan # htn - BP now well controlled off meds # dispo - CM involved; family would like to return to inpatient rehab ([facility] ) in [place]. [facility] could accept after Jul 13. Will ask PT/OT to eval for commercial flight vs medical flight for return trip. Subjective: agitated last night; discussed at length with his sister Objective: Vital Signs Temp Pulse Resp BP Pulse Ox 35.9 C L 67 12 125/99 H 95 07/08/17 08:00 07/08/17 08:00 07/08/17 08:00 07/08/17 08:00 07/08/17 08:00 Laboratory Results 07/08/17 06:40 07/07/17 07/08/17 07/09/17 05:59 05:59 05:59 Intake Total 3200 2812 Output Total 1700 875 750 Balance 1500 1937 -750 - Time Spent With Patient Time Spent with Patient: greater than 25 minutes Time Spent with Patient: Greater than 25 minutes spent on this patients care, greater than 50% of time spent counseling, educating, and coordinating care regarding the above mentioned plan. - Physical Exam Constitutional: other (sleeping but awakes and picks at things) ICD10 Worksheet Patient Problems: Problems Problem Status Onset Acute cerebellar hemorrhage Acute Urinary retention Acute
[2017-07-08] MEDS ORDERED: PROMETHAZINE HCL 25 MG/ML INJ IVP PRN (15:58)
--- NOTE | 2017-07-08 16:55 | ASMTCMCOM ---
CM Note CM Note Notes: Spoke lalito Ramos ([phone]) at [facility] in [place] who reports they will need updates 07/14/17 and only then will make final determination and seek insurance authorization when pt [employer] in effect. This CM informed Rachel pt health care proxy is partner Jamie (copy in chart), pt plans either to fly by medical air transport or commercial flight w RN escort (if appropriate/approved) and pt is currently 1:1 with a sitter. Rachel states they may be able to accommodate 1:1 at [facility] they will have to see where pt is on 07/14/17 and what beds/staffing looks like. [facility] inpatient re[facility] believes pt to be a good candidate for their program, started insurance authorization today. Spoke lalito Kaylen [phone] at [facility] who states pt is appropriate but will re-assess Thursday when [employer] insurance is active. Kaylen states [employer] notoriously denies inpatient rehab level of care but will submit for auth if pt still appropriate 07/14/17. CM to follow. D/c plan of care: Family prefers [facility] in [place] which is pending until at least 07/14/17. If [place] inpatient rehab is needed may be [facility] or [facility]. Date Signed: 07/08/2017 04:55 PM Electronically Signed By:KIM Cazares
[2017-07-08] MEDS: MELATONIN 3 MG TAB TUBE SCH (20:13)
[2017-07-08] MEDS: OLANZapine 10 MG TAB TUBE SCH (20:13)
[2017-07-09] MEDS: LORazepam 2 MG/ML INJ IVP PRN (03:23)
[2017-07-09] MEDS: ACETAMINOPHEN 650 MG/20.3 ML UDCUP TUBE PRN (06:48)
[2017-07-09] MEDS: SENNOSIDES 17.6 MG/10 ML UDL TUBE SCH ×2 (08:52→22:57)
[2017-07-09] MEDS: FLUoxetine 20 MG CAP TUBE SCH (09:31)
[2017-07-09] MEDS: ENOXAPARIN 40 MG/0.4 ML SYR SC SCH (09:31)
--- NOTE | 2017-07-09 09:49 | SOAPPROG ---
SOAP Progress Note Assessment/Plan: Assessment: elevated creat: back to baseline hypernatremia sodium better today, stable in the 141-145 range the past 2-3 days. 125 cc every 2 hours of free water cerebellar bleed earlier this month tired this morning, didn't get much sleep last night Discussed situation with his sister this morning, all questions answered Plan: free water, keep at current rate PICC in place, seems to be working well every 12 hour Na checks On the trip back to [place], as well as when he arrives in [place], he will continue to need 125 cc free water every 2 hours, can use bottled water through his PEG tube during the trip looks like may not be able to get back to [place] until the new year (insurance issues) debating about what would be best. Unless his mental state improves significantly, I think the best transport option would be a dedicated medical transport and NOT a commercial flight. 07/02/17 08:42 07/03/17 07:38 07/08/17 09:47 07/08/17 09:53 07/09/17 09:46 Subjective: resting quietly sister at bedside opens his eyes to his name, but falls back to sleep not answering questions today Objective: Vital Signs Temp Pulse Resp BP Pulse Ox 36.6 C 74 18 131/85 H 94 07/09/17 07:33 07/09/17 02:00 07/09/17 07:33 07/09/17 07:33 07/09/17 02:00 Laboratory Results 07/09/17 07:51 07/08/17 07/09/17 07/10/17 05:59 05:59 05:59 Intake Total 2812 1375 1200 Output Total 875 2600 Balance 1937 -1225 1200 Physical Exam - Physical Exam General Appearance: no apparent distress Respiratory: No rhonchi, No wheezing, No pleural rub Cardiac/Chest: regular rate, rhythm, No edema, No friction rub Abdomen: normal bowel sounds, non-tender, soft, other (PEG in place) Extremities: non-tender, No swelling Neuro/Psych: other (resting, arouseable, not communicative today) ICD10 Worksheet Patient Problems: Problems Problem Status Onset Urinary retention Acute Acute cerebellar hemorrhage Acute
--- NOTE | 2017-07-09 11:39 | HOSPPROG ---
Hospitalist Progress Note Assessment/Plan: # hypernatremia - much better, cont free H2O flushes Q2H - currently check Na Q12 # fall - continue sitter # emesis - seems most likely related to cerebellar hemorrhage/edema; other considerations are gastritis; no residuals from tube feeds - will hold off on steroids given his agitation - hold on protonix as well for the time being # cerebellar hemorrhage - s/p craniotomy - cont PT/OT # urinary retention - appreciate urology eval, cont vitale # agitation/delirium - zyprexa HS, will add prn doses, try to minimize ativan # htn - BP now well controlled off meds # dispo - CM involved; family would like to return to inpatient rehab ([facility] ) in [place]. [facility] could accept after Jul 13. Recommend a medical flight for safety. Subjective: had two episodes of emesis yesterday, one today; discussed at length with his sister Objective: Vital Signs Temp Pulse Resp BP Pulse Ox 36.6 C 74 18 131/85 H 94 07/09/17 07:33 07/09/17 02:00 07/09/17 07:33 07/09/17 07:33 07/09/17 02:00 Laboratory Results 07/09/17 07:51 07/08/17 07/09/17 07/10/17 05:59 05:59 05:59 Intake Total 2812 1375 1200 Output Total 872 2600 Balance 1937 -1225 1200 - Time Spent With Patient Time Spent with Patient: greater than 25 minutes Time Spent with Patient: Greater than 25 minutes spent on this patients care, greater than 50% of time spent counseling, educating, and coordinating care regarding the above mentioned plan. - Physical Exam Constitutional: other (sleeping) ICD10 Worksheet Patient Problems: Problems Problem Status Onset Acute cerebellar hemorrhage Acute Urinary retention Acute
[2017-07-09 12:18] LABS: PLATELET COUNT 378 10^3/uL (150-400)
--- NOTE | 2017-07-09 17:03 | ASMTCMCOM ---
CM Note CM Note Notes: Telephone call from [place] at [facility], they have insurance authorization and a bed for pt. Informed [place] family is trying for Cm in [facility], [place] reports they have several d/c over the next week and will have a bed if pt does want [facility]. Updated pt partner Jamie and sister Rani, state they may tour [facility] tomorrow but are still most interested in [place] [place]. Jamie has been in touch with [facility] residential director and [employer] to be proactive in arranging this. Family really want pt home soon and the challenges are pts changing insurance 07/13/17 and [facility] inability to review pt and make a determination on acceptance/bed availability/obtain insurance authorization until 07/14/11. Jamie is researching air medical transport and seems to have found a company but cannot book anything yet due to no d/c date. Jamie is still interested in therapy input on if pt may be able to safely fly commercial with an RN escort. Updated clinicals sent to [facility] today (despite the fact Rachel said they would not look at clinicals until 07/13/17). CM to follow. Date Signed: 07/09/2017 05:03 PM Electronically Signed By:KMI Cazares
[2017-07-09] MEDS: MELATONIN 3 MG TAB TUBE SCH (20:26)
[2017-07-09] MEDS: OLANZapine 10 MG TAB TUBE SCH (20:26)
[2017-07-09] MEDS: OLANZapine DISINTEGR 5 MG TAB TUBE PRN (22:38)
[2017-07-10] MEDS: LORazepam 2 MG/ML INJ IVP PRN (01:19)
[2017-07-10] MEDS ORDERED: QUEtiapine FUMARATE 50 MG TAB PO SCH (03:15)
[2017-07-10] MEDS: SENNOSIDES 17.6 MG/10 ML UDL TUBE SCH ×2 (07:29→22:21)
[2017-07-10] MEDS: OLANZapine DISINTEGR 5 MG TAB TUBE PRN (08:19)
[2017-07-10] MEDS: ENOXAPARIN 40 MG/0.4 ML SYR SC SCH (08:19)
[2017-07-10] MEDS: FLUoxetine 20 MG CAP TUBE SCH (08:19)
--- NOTE | 2017-07-10 11:56 | HOSPPROG ---
Hospitalist Progress Note Assessment/Plan: # hypernatremia - much better, cont free H2O flushes Q2H - currently check Na Q12 - renal consult # fall - continue sitter # agitation/delirium/sundowning - will try a low dose of ativan cautiously tonight; cont zyprexa - he is impulsive # cerebellar hemorrhage - s/p craniotomy - he has had some nausea/vomiting as well as dizziness - cont PT/OT # urinary retention - appreciate urology eval, cont vitale # htn - BP now well controlled off meds # dispo - CM involved; his Jamie is very involved and would like to return to inpatient rehab ([facility]) in [place]. [facility] could accept after Jul 13. Planning on a medical flight. Subjective: agitated last night; discussed with Jamie, spouse Objective: Vital Signs Temp Pulse Resp BP Pulse Ox 37.1 C 70 18 84/69 L 93 07/10/17 08:00 07/10/17 08:00 07/10/17 08:00 07/10/17 08:00 07/10/17 08:00 Laboratory Results 07/09/17 12:10 07/10/17 08:12 07/09/17 07/10/17 07/11/17 05:59 05:59 05:59 Intake Total 1375 2775 Output Total 2600 1475 Balance -1225 1300 - Time Spent With Patient Time Spent with Patient: greater than 35 minutes Time Spent with Patient: Greater than 35 minutes spent on this patients care, greater than 50% of time spent counseling, educating, and coordinating care regarding the above mentioned plan. - Physical Exam Constitutional: uncomfortable, other (impulsive) ICD10 Worksheet Patient Problems: Problems Problem Status Onset Acute cerebellar hemorrhage Acute Urinary retention Acute
--- NOTE | 2017-07-10 13:20 | SOAPPROG ---
SOAP Progress Note Assessment/Plan: Assessment/Plan: Hypernatremia: sodium now stable around 141-143. - Continue 125ml free water flushes q2h. - Continue to follow sodium q12h. Thank you for the interesting consult. Nephrology will sign off at this time, please call if you have any additional questions or concerns. Subjective: No acute events overnight. Objective: Vital Signs Temp Pulse Resp BP Pulse Ox 37.1 C 70 18 84/69 L 93 07/10/17 08:00 07/10/17 08:00 07/10/17 08:00 07/10/17 08:00 07/10/17 08:00 Laboratory Results 07/09/17 12:10 07/10/17 08:12 07/09/17 07/10/17 07/11/17 05:59 05:59 05:59 Intake Total 1375 2775 Output Total 2600 1475 50 Balance -1225 1300 -50 General: resting, NAD OP: clear CV: RRR Resp: nonlabored respirations Abd; SOft, NT/ND Ext: no edema BLE ICD10 Worksheet Patient Problems: Problems Problem Status Onset Urinary retention Acute Acute cerebellar hemorrhage Acute
--- NOTE | 2017-07-10 16:47 | ASMTCMCOM ---
CM Note CM Note Notes: Spoke with Celi Kapoor ([phone]) at [facility] who states she has been in touch with Tony at [facility] who is working on a group number which could take a week. Pt partner Jamie called pt employment HR dept to ask for assistance in expediting this process. Tony was able to confirm with Celi Pabon is in the [employer] network. Celi does state based on clinicals pt is appropriate for their program. Celi reports [facility] admissions would need pt there by 3pm EST. Jamie was updated and reports he will use [employer] who work closely with Cm. CM to send all updated clinicals Thursday07/13/17 so [facility] can have them for review and insurance auth 07/14/11. [facility] updated. CM to follow. Date Signed: 07/10/2017 04:46 PM Electronically Signed By:KIM Cazares
[2017-07-10] MEDS ORDERED: LORazepam 0.5 MG TAB PO SCH (21:00)
[2017-07-10] MEDS: MELATONIN 3 MG TAB TUBE SCH (22:21)
[2017-07-10] MEDS: OLANZapine 10 MG TAB TUBE SCH (22:22)
[2017-07-10] MEDS: QUEtiapine FUMARATE 50 MG TAB TUBE SCH (22:22)
[2017-07-11] MEDS: LORazepam 2 MG/ML INJ IVP PRN (01:00)
[2017-07-11] MEDS: ENOXAPARIN 40 MG/0.4 ML SYR SC SCH (07:27)
[2017-07-11] MEDS: FLUoxetine 20 MG CAP TUBE SCH (07:28)
[2017-07-11] MEDS: ACETAMINOPHEN 650 MG/20.3 ML UDCUP TUBE PRN (07:30)
[2017-07-11] MEDS: SENNOSIDES 17.6 MG/10 ML UDL TUBE SCH ×2 (07:31→20:16)
[2017-07-11] MEDS ORDERED: ALTEPLASE 2 MG VIAL IVP ONE (10:00)
--- NOTE | 2017-07-11 13:02 | HOSPPROG ---
Hospitalist Progress Note Assessment/Plan: 62 yo M who suffered a cerebellar hemorrhage on 06/17/2017 requiring surgical intervention, now PEG tube dependent, transferred to [facility] from rehab for hypernatremia. Reviewed his care with Dr Stein who had been caring for Ayan. # hypernatremia - much better, cont free H2O flushes Q2H - currently check Na Q12 - renal consult - Na levels stable # fall - continue sitter # agitation/delirium/sundowning - low dose of ativan; cont zyprexa - he is impulsive -significant other is willing to stay close by but patient is impulsive even w him there #rash -no new medications, trial of topical hydrocortisone # cerebellar hemorrhage - s/p craniotomy - he has had some nausea/vomiting as well as dizziness - cont PT/OT # urinary retention - appreciate urology eval, cont vitale -will need f/u with urology when he returns to [place] w Jamie -likely need a cystoscopy # htn - BP now well controlled off meds -has some hypotension # dispo - CM involved; his Jamie is very involved and would like to return to inpatient rehab ([facility]) in [place]. [facility] could accept after Jul 13. Planning on a medical flight. Also, spoke with [facility] and they may do a video esoph study on him early next week. Subjective: Ayan is not verbal with mebut very appropriately interactive with smiling and nods 'yes' and 'no' Objective: Vital Signs Temp Pulse Resp BP Pulse Ox 36.6 C 73 16 93/72 L 93 07/11/17 07:21 07/11/17 07:21 07/11/17 07:21 07/11/17 07:21 07/11/17 07:21 Laboratory Results 07/09/17 12:10 07/11/17 01:25 07/10/17 07/11/17 07/12/17 05:59 05:59 05:59 Intake Total 2775 2128 0 Output Total 1475 1450 Balance 1300 678 0 - Physical Exam Constitutional: no apparent distress, appears nourished, not in pain Eyes: PERRL Ears, Nose, Mouth, Throat: hearing normal Cardiovascular: regular rate and rhythym Respiratory: no respiratory distress, other (frequent coughing after trying to swallow some water) Genitourinary: vitale in urethra Skin: warm Musculoskeletal: generalized weakness Psychiatric: interacting appropriately, other (impulsive) ICD10 Worksheet Patient Problems: Problems Problem Status Onset Urinary retention Acute Acute cerebellar hemorrhage Acute
[2017-07-11] MEDS ORDERED: BACITRACIN OINTMENT 1 PACKET TP ONE (15:23)
[2017-07-11] MEDS: MELATONIN 3 MG TAB TUBE SCH (20:16)
[2017-07-11] MEDS: OLANZapine 10 MG TAB TUBE SCH (20:16)
[2017-07-11] MEDS: QUEtiapine FUMARATE 50 MG TAB TUBE SCH (20:16)
[2017-07-11] MEDS: LORazepam 0.5 MG TAB TUBE SCH (20:16)
[2017-07-11] MEDS: HYDROCORTISONE 1% CREAM TP SCH (23:26)
[2017-07-12] MEDS: LORazepam 2 MG/ML INJ IVP PRN (04:22)
[2017-07-12] MEDS: ENOXAPARIN 40 MG/0.4 ML SYR SC SCH (08:32)
[2017-07-12] MEDS: SENNOSIDES 17.6 MG/10 ML UDL TUBE SCH ×2 (08:33→22:21)
[2017-07-12] MEDS: FLUoxetine 20 MG CAP TUBE SCH (08:33)
[2017-07-12] MEDS: HYDROCORTISONE 1% CREAM TP SCH ×2 (08:34→22:31)
[2017-07-12] MEDS: OLANZapine DISINTEGR 5 MG TAB TUBE PRN (08:40)
--- NOTE | 2017-07-12 15:33 | HOSPPROG ---
Hospitalist Progress Note Assessment/Plan: 62 yo M who suffered a cerebellar hemorrhage on 06/17/2017 requiring surgical intervention, now PEG tube dependent, transferred to [facility] from rehab for hypernatremia. # hypernatremia - much better, cont free H2O flushes Q2H - currently check Na Q12 - renal consult - Na levels stable # fall - continue sitter # agitation/delirium/sundowning - low dose of ativan; cont zyprexa - he is impulsive - overall the patient does best with Zyprexa and would recommend minimal use of the Ativan #rash/non pruritic -no new medications, trial of topical hydrocortisone # cerebellar hemorrhage - s/p craniotomy - he has had some nausea/vomiting as well as dizziness - cont PT/OT # urinary retention - appreciate urology eval, cont vitale -will need f/u with urology when he returns to [place] w Jamie -likely need a cystoscopy # htn - BP now well controlled off meds -has some hypotension # dispo - CM involved; his Jamie is very involved and would like to return to inpatient rehab ([facility]) in [place]. [facility] could accept after Jul 13. Planning on a medical flight. Spoke with the patient's nurse. The plan is for her to help teach the patient's significant other how to give medications via his PEG tube prior to discharge. Subjective: Ayan gives me a thumbs up that everything is okay Objective: Vital Signs Temp Pulse Resp BP Pulse Ox 36.1 C 82 16 113/83 H 94 07/12/17 12:09 07/12/17 12:09 07/12/17 12:09 07/12/17 12:09 07/12/17 12:09 Laboratory Results 07/09/17 12:10 07/12/17 03:20 07/11/17 07/12/17 07/13/17 05:59 05:59 05:59 Intake Total 2128 1450 Output Total 1450 1050 800 Balance 678 400 -800 - Physical Exam Constitutional: no apparent distress, appears nourished, not in pain Eyes: PERRL Ears, Nose, Mouth, Throat: hearing normal Cardiovascular: regular rate and rhythym Respiratory: no respiratory distress Gastrointestinal: normoactive bowel sounds Skin: warm, rash (Overall the rash has improved since starting hydrocortisone treatment. Looks more like a dermatitis) Musculoskeletal: abnormal gait, generalized weakness Psychiatric: interacting appropriately ICD10 Worksheet Patient Problems: Problems Problem Status Onset Urinary retention Acute Acute cerebellar hemorrhage Acute
[2017-07-12] MEDS: QUEtiapine FUMARATE 50 MG TAB TUBE SCH (22:21)
[2017-07-12] MEDS: LORazepam 0.5 MG TAB TUBE SCH (22:21)
[2017-07-12] MEDS: MELATONIN 3 MG TAB TUBE SCH (22:22)
[2017-07-12] MEDS: OLANZapine 10 MG TAB TUBE SCH (22:22)
[2017-07-13] MEDS: OLANZapine DISINTEGR 5 MG TAB TUBE PRN (03:05)
[2017-07-13] MEDS: HYDROCORTISONE 1% CREAM TP SCH ×2 (07:05→23:13)
--- NOTE | 2017-07-13 11:10 | HOSPPROG ---
Hospitalist Progress Note Assessment/Plan: 62 yo M who suffered a cerebellar hemorrhage on 06/17/2017 requiring surgical intervention, now PEG tube dependent, transferred to [facility] from rehab for hypernatremia. # hypernatremia - much better, cont free H2O flushes Q2H - currently check Na Q12 - renal consult - Na levels stable # fall - continue sitter # agitation/delirium/sundowning - low dose of ativan; cont zyprexa - he is impulsive - overall the patient does best with Zyprexa and would recommend minimal use of the Ativan, dc prn iv ativan #rash/non pruritic -no new medications, trial of topical hydrocortisone # cerebellar hemorrhage - s/p craniotomy - he has had some nausea/vomiting as well as dizziness - cont PT/OT # urinary retention - appreciate urology eval, cont vitale -will need f/u with urology when he returns to [place] w Jamie -likely need a cystoscopy # htn - BP now well controlled off meds -has some hypotension # dispo - CM involved; his Jamie is very involved and would like to return to inpatient rehab ([facility]) in [place]. [facility] could accept after Jul 13. Planning on a medical flight. Subjective: Ayan is feeling fine, shows both thumbs up. Took a shower earlier today. Objective: Vital Signs Temp Pulse Resp BP Pulse Ox 36.5 C 68 16 144/78 H 93 07/13/17 08:00 07/13/17 08:00 07/13/17 08:00 07/13/17 08:00 07/13/17 08:00 Laboratory Results 07/09/17 12:10 07/13/17 02:35 07/12/17 07/13/17 07/14/17 05:59 05:59 05:59 Intake Total 1450 1275 550 Output Total 1050 2200 0 Balance 400 -925 550 - Physical Exam Constitutional: appears nourished, not in pain, chronically ill appearing Eyes: PERRL Ears, Nose, Mouth, Throat: hearing normal Cardiovascular: regular rate and rhythym Respiratory: no respiratory distress Gastrointestinal: normoactive bowel sounds Skin: warm Musculoskeletal: abnormal gait, generalized weakness Psychiatric: interacting appropriately ICD10 Worksheet Patient Problems: Problems Problem Status Onset Urinary retention Acute Acute cerebellar hemorrhage Acute
[2017-07-13] MEDS: FLUoxetine 20 MG CAP TUBE SCH (11:33)
[2017-07-13] MEDS: SENNOSIDES 17.6 MG/10 ML UDL TUBE SCH ×2 (11:34→23:11)
[2017-07-13] MEDS: ENOXAPARIN 40 MG/0.4 ML SYR SC SCH (11:34)
--- NOTE | 2017-07-13 15:10 | ASMTCMCOM ---
CM Note CM Note Notes: The plan is to fly back to [place] with medical transport and be admitted into the [facility]. Patient's ins changes to to [employer] Jul 13. This might complicate things. Date Signed: 07/13/2017 03:09 PM Electronically Signed By:Christina Worrell LCSW
[2017-07-13] MEDS: QUEtiapine FUMARATE 50 MG TAB TUBE SCH (23:11)
[2017-07-13] MEDS: MELATONIN 3 MG TAB TUBE SCH (23:11)
[2017-07-13] MEDS: LORazepam 0.5 MG TAB TUBE SCH (23:11)
[2017-07-13] MEDS: OLANZapine 10 MG TAB TUBE SCH (23:12)
[2017-07-14] MEDS: OLANZapine DISINTEGR 5 MG TAB TUBE PRN (02:20)
[2017-07-14] MEDS: HYDROCORTISONE 1% CREAM TP SCH ×2 (10:03→21:57)
[2017-07-14] MEDS: SENNOSIDES 17.6 MG/10 ML UDL TUBE SCH ×2 (10:03→21:56)
[2017-07-14] MEDS: FLUoxetine 20 MG CAP TUBE SCH (10:03)
[2017-07-14] MEDS: ENOXAPARIN 40 MG/0.4 ML SYR SC SCH (10:04)
--- NOTE | 2017-07-14 11:39 | HOSPPROG ---
Hospitalist Progress Note Assessment/Plan: 62 yo M who suffered a cerebellar hemorrhage on 06/17/2017 requiring surgical intervention, now PEG tube dependent, transferred to [facility] from rehab for hypernatremia. # hypernatremia - much better, cont free H2O flushes Q2H - currently check Na Q12 - renal consult - Na levels stable # fall - continue sitter # agitation/delirium/sundowning - low dose of ativan; cont zyprexa - he is impulsive - overall the patient does best with Zyprexa and would recommend minimal use of the Ativan, dc prn iv ativan #drowsiness -nods yes he has a headache, awakens easily to verbal stimuli -hasn't received medications for agitation -could consider CT of his head to r/o any worsening of his cerebellar hemorrhage #right upper arm redness around picc site, some swelling -ultrasound ordered #rash/non pruritic -no new medications, trial of topical hydrocortisone # cerebellar hemorrhage - s/p craniotomy - he has had some nausea/vomiting as well as dizziness - cont PT/OT -patient has a PEG in place because he is unable to swallow safely from his stroke # urinary retention - appreciate urology eval, cont vitale -will need f/u with urology when he returns to [place] w Jamie -likely need a cystoscopy # htn - BP now well controlled off meds -has some hypotension # plan. Due to his recent cerebellar hemorrhage as well as impulsive behavior, the patient will need to be safely transported back to the [place], [place] area. His significant other is arranging a medical flight for the patient to return to inpatient rehab in the [facility]. It would be very difficult to transport the patient via the airlines or a car. [facility] can take the patient after July 13 via a medical flight Subjective: Ayan is drowsy, says no that he feels ill but shows his thumbs up when asked if he has a headache. Objective: Vital Signs Temp Pulse Resp BP Pulse Ox 36.8 C 70 16 117/72 93 07/14/17 08:00 07/14/17 08:00 07/14/17 08:00 07/14/17 08:00 07/14/17 08:00 Laboratory Results 07/09/17 12:10 07/14/17 02:30 07/13/17 07/14/1718 05:59 05:59 05:59 Intake Total 6275 1441 Output Total 0261 473 700 Balance -925 1717 -700 - Physical Exam Constitutional: appears nourished Eyes: PERRL Ears, Nose, Mouth, Throat: hearing normal Cardiovascular: regular rate and rhythym Respiratory: no respiratory distress Gastrointestinal: normoactive bowel sounds Skin: warm, other (right sided PICC site w redness around insertion site, has some minimal swelling around bicep area) Psychiatric: interacting appropriately ICD10 Worksheet Patient Problems: Problems Problem Status Onset Urinary retention Acute Acute cerebellar hemorrhage Acute
[2017-07-14] MEDS: ACETAMINOPHEN 650 MG/20.3 ML UDCUP TUBE PRN (16:33)
--- NOTE | 2017-07-14 16:50 | ASMTCMCOM ---
CM Note CM Note Notes: Updates sent to [facility], no confirmation of bed/acceptance by close of business. Also, [facility]eli Kaporo [phone] in admissions is going to let CM know if pt can d/c w sitter or if sitter needs to be d/c. Letter provided to Jamie per his request stating pt cannot safely fly commercial, he will try to see if insurance can assist w the medical air flight. Faxed clinicals to Alex at [employer] [facility] [phone]. It is a direct flight to [place]. [facility] to follow. Date Signed: 07/14/2017 04:50 PM Electronically Signed By:KIM Cazares
[2017-07-14 17:34] LABS: PLATELET COUNT 293 10^3/uL (150-400)
[2017-07-14] MEDS: QUEtiapine FUMARATE 50 MG TAB TUBE SCH (21:56)
[2017-07-14] MEDS: LORazepam 0.5 MG TAB TUBE SCH (21:56)
[2017-07-14] MEDS: OLANZapine 10 MG TAB TUBE SCH (21:56)
[2017-07-14] MEDS: MELATONIN 3 MG TAB TUBE SCH (21:56)
[2017-07-15] MEDS: OLANZapine DISINTEGR 5 MG TAB TUBE PRN (01:32)
[2017-07-15] MEDS: ENOXAPARIN 40 MG/0.4 ML SYR SC SCH (09:51)
[2017-07-15] MEDS: FLUoxetine 20 MG CAP TUBE SCH (09:51)
[2017-07-15] MEDS: SENNOSIDES 17.6 MG/10 ML UDL TUBE SCH ×2 (09:51→21:49)
[2017-07-15] MEDS: HYDROCORTISONE 1% CREAM TP SCH ×2 (10:06→21:48)
--- NOTE | 2017-07-15 14:54 | HOSPPROG ---
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 # hypernatremia - much better, cont free H2O flushes Q2H - currently check Na Q12 - renal consult - Na levels stable # fall - continue sitter # agitation/delirium/sundowning - low dose of ativan; cont zyprexa - he is impulsive - overall the patient does best with Zyprexa and would recommend minimal use of the Ativan, dc prn iv ativan #non-occlusive dvt, line provoked -small, picc removed #drowsiness -better today -but still drowsy, will cut his Seroquel dose in half (this was started this past weekend) #rash/non pruritic -no new medications, trial of topical hydrocortisone # cerebellar hemorrhage - s/p craniotomy - he has had some nausea/vomiting as well as dizziness - cont PT/OT -patient has a PEG in place because he was unable to swallow safely from his stroke -now on dysphagia diet, but cont to get tube feedings at night, cont current water flushes # urinary retention - appreciate urology eval, cont Nicole -will need f/u with urology when he returns to [place] w Jamie -likely need a cystoscopy # htn - BP now well controlled off meds -has some hypotension # plan. Due to his recent cerebellar hemorrhage as well as impulsive behavior, the patient will need to be safely transported back to the [place], [place] area. His significant other is arranging a medical flight for the patient to return to inpatient rehab in the [facility]. It would be very difficult to transport the patient via the airlines or a car. [facility] can take the patient after July 13 via a medical flight. They are still waiting on coverage and this hopefully will happen soon. Would not remove resume the patient's blood pressure medications on discharge. Would continue the current regimen done here at this hospital stay rather than prior. Subjective: Garry has no complaints. Objective: Vital Signs Temp Pulse Resp BP Pulse Ox 36.6 C 72 16 120/74 97 07/15/17 10:08 07/15/17 10:08 07/15/17 10:08 07/15/17 10:07/15/17 10:08 Laboratory Results 07/14/17 17:15 07/14/17 17:15 07/14/17 07/15/17 07/16/17 05:59 05:59 05:59 Intake Total 3611 6056 Output Total 686 4520 Balance 7476 -794 - Physical Exam Constitutional: appears nourished, not in pain, uncomfortable Eyes: PERRL Ears, Nose, Mouth, Throat: hearing normal Cardiovascular: regular rate and rhythym Respiratory: no respiratory distress Gastrointestinal: normoactive bowel sounds Skin: warm Musculoskeletal: abnormal gait, generalized weakness Psychiatric: interacting appropriately ICD10 Worksheet Patient Problems: Problems Problem Status Onset Urinary retention Acute Acute cerebellar hemorrhage Acute
--- NOTE | 2017-07-15 16:00 | ASMTCMCOM ---
CM Note CM Note Notes: Updates sent to [facility]. [employer] provided pt partner Jamie group number today, still waiting on individual policy number. [facility] accepts wknd admissions. CM to follow. Date Signed: 07/15/2017 03:59 PM Electronically Signed By:KIM Cazares
[2017-07-15] MEDS: LORazepam 0.5 MG TAB TUBE SCH (21:47)
[2017-07-15] MEDS: OLANZapine 10 MG TAB TUBE SCH (21:48)
[2017-07-15] MEDS: QUEtiapine FUMARATE 50 MG TAB TUBE SCH (21:48)
[2017-07-15] MEDS: MELATONIN 3 MG TAB TUBE SCH (21:48)
[2017-07-16] MEDS: FLUoxetine 20 MG CAP TUBE SCH (10:36)
[2017-07-16] MEDS: ENOXAPARIN 40 MG/0.4 ML SYR SC SCH (10:36)
[2017-07-16] MEDS: SENNOSIDES 17.6 MG/10 ML UDL TUBE SCH ×2 (10:36→22:19)
[2017-07-16] MEDS: HYDROCORTISONE 1% CREAM TP SCH ×2 (11:25→22:33)
--- NOTE | 2017-07-16 13:58 | HOSPPROG ---
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 First encounter, chart reviewed. # hypernatremia - much better, cont free H2O flushes Q2H - renal consult - Na levels stable # fall - continue sitter # agitation/delirium/sundowning - low dose of ativan; cont zyprexa - he is impulsive, redirectable - overall the patient does best with Zyprexa and would recommend minimal use of the Ativan, dc prn iv ativan #non-occlusive dvt, line provoked -small, picc removed #drowsiness -better today -cut his Seroquel dose in half (this was started this past weekend) #rash/non pruritic -no new medications, trial of topical hydrocortisone -stable # cerebellar hemorrhage - s/p craniotomy - he has had some nausea/vomiting as well as dizziness - cont PT/OT -patient has a PEG in place because he was unable to swallow safely from his stroke -now on dysphagia diet, but cont to get tube feedings at night, cont current water flushes #Aphasia -conts, # urinary retention - appreciate urology eval, cont Nicole -will need f/u with urology when he returns to [place] w Jamie -likely need a cystoscopy # htn - BP now well controlled off meds -has some hypotension # plan. Due to his recent cerebellar hemorrhage as well as impulsive behavior, the patient will need to be safely transported back to the [place], [place] area. His significant other is arranging a medical flight for the patient to return to inpatient rehab in the [facility]. It would be very difficult to transport the patient via the airlines or a car. [facility] can take the patient after July 13 via a medical flight. They are still waiting on coverage and this hopefully will happen soon. Would not remove resume the patient's blood pressure medications on discharge. Would continue the current regimen done here at this hospital stay rather than prior. Subjective: Awake in bed. Denies pain. No specific issues. Objective: Vital Signs Temp Pulse Resp BP Pulse Ox 36.7 C 82 18 134/91 H 95 07/16/17 08:00 07/16/17 08:00 07/16/17 08:00 07/16/17 08:00 07/16/17 08:00 Laboratory Results 07/14/17 17:15 07/16/17 09:00 07/15/17 07/16/17 07/17/17 05:59 05:59 05:59 Intake Total 1636 2171 Output Total 0590 3705 Balance -614 736 - Physical Exam Constitutional: appears nourished, not in pain, No obese Eyes: PERRL, anicteric sclera, EOMI Ears, Nose, Mouth, Throat: moist mucous membranes, hearing normal, ears appear normal Cardiovascular: No JVD, No tachycardia, No edema Respiratory: no respiratory distress, no rales or rhonchi, reduced air movement Gastrointestinal: normoactive bowel sounds, No tenderness, No ascites Skin: warm, normal color, No erythema Musculoskeletal: normal joint ROM, no joint effusions, generalized weakness Psychiatric: not anxious, not encephalopathic, poor memory ICD10 Worksheet Patient Problems: Problems Problem Status Onset Acute cerebellar hemorrhage Acute Urinary retention Acute
[2017-07-16] MEDS: QUEtiapine FUMARATE 50 MG TAB TUBE SCH (22:14)
[2017-07-16] MEDS: OLANZapine 10 MG TAB TUBE SCH (22:18)
[2017-07-16] MEDS: LORazepam 0.5 MG TAB TUBE SCH (22:18)
[2017-07-16] MEDS: MELATONIN 3 MG TAB TUBE SCH (22:19)
[2017-07-17] MEDS: OLANZapine DISINTEGR 5 MG TAB TUBE PRN (01:48)
[2017-07-17] MEDS: FLUoxetine 20 MG CAP TUBE SCH (10:26)
[2017-07-17] MEDS: ENOXAPARIN 40 MG/0.4 ML SYR SC SCH (10:26)
[2017-07-17] MEDS: SENNOSIDES 17.6 MG/10 ML UDL TUBE SCH ×2 (10:27→22:34)
[2017-07-17] MEDS: HYDROCORTISONE 1% CREAM TP SCH ×2 (10:27→20:25)
[2017-07-17] MEDS ORDERED: ONDANSETRON DISINTEGRATING 4 MG TAB PO PRN (13:30)
[2017-07-17] MEDS ORDERED: PROMETHAZINE HCL 25 MG TAB TUBE PRN (13:30)
--- NOTE | 2017-07-17 14:04 | ASMTCMCOM ---
CM Note CM Note Notes: Chart reviewed. Per Yoly and Celi at [facility] in [place]. they have a bed for sintia. Pt's is securing private pay and has contacted [facility] who can transport patient to [place] in am. Images requested to be loaded on CD. On chart. information updated to [facility] via [employer]. The must have final discharge summary faxed prior to acceptance of patient . Jessica augustine. Alex from [facility] requesting recent labs and last progress not. Will fax to [phone]. Will fax dc summary to [phone] att: [facility]. Plan dc in am to [facility] via private medical flight. CM available should other needs arise. Date Signed: 07/17/2017 02:04 PM Electronically Signed By:Zofia Augustin RN
[2017-07-17] MEDS ORDERED: MECLIZINE HCL 25 MG TAB PO PRN (14:33)
--- NOTE | 2017-07-17 14:33 | HOSPPROG ---
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 # hypernatremia - much better, cont free H2O flushes Q2H - renal consult - Na levels stable # fall - continue sitter # agitation/delirium/sundowning - low dose of ativan; cont zyprexa - he is impulsive, redirectable - overall the patient does best with Zyprexa and would recommend minimal use of the Ativan, dc prn iv ativan #non-occlusive dvt, line provoked -small, picc removed #drowsiness -better today -cut his Seroquel dose in half (this was started this past weekend) #rash/non pruritic -no new medications, trial of topical hydrocortisone -stable # cerebellar hemorrhage - s/p craniotomy - he has had some nausea/vomiting as well as dizziness - cont PT/OT -patient has a PEG in place because he was unable to swallow safely from his stroke -now on dysphagia diet, but cont to get tube feedings at night, cont current water flushes #Aphasia -conts, # urinary retention - appreciate urology eval, cont Nicole -will need f/u with urology when he returns to [place] w Jamie -likely need a cystoscopy # htn - BP now well controlled off meds -has some hypotension # plan. Due to his recent cerebellar hemorrhage as well as impulsive behavior, the patient will need to be safely transported back to the [place], [place] area. His significant other is arranging a medical flight for the patient to return to inpatient rehab in the [facility]. It would be very difficult to transport the patient via the airlines or a car. [facility] can take the patient after July 13 via a medical flight. They are still waiting on coverage and this hopefully will happen soon. Would not remove resume the patient's blood pressure medications on discharge. Would continue the current regimen done here at this hospital stay rather than prior. Subjective: Feeling well. Less tired today. Visitors. Objective: Vital Signs Temp Pulse Resp BP Pulse Ox 36.3 C 79 17 117/80 92 07/17/17 08:00 07/17/17 08:00 07/17/17 08:00 07/17/17 08:00 07/17/17 08:00 Laboratory Results 07/14/17 17:15 07/16/17 09:00 07/16/17 07/17/17 07/18/17 05:59 05:59 05:59 Intake Total 2171 1389 25 Output Total 1435 850 10 Balance 736 539 15 - Physical Exam Constitutional: appears nourished, not in pain, chronically ill appearing Eyes: PERRL, anicteric sclera, EOMI Ears, Nose, Mouth, Throat: moist mucous membranes, hearing normal, ears appear normal Cardiovascular: regular rate and rhythym, No JVD, No edema Respiratory: no respiratory distress, no rales or rhonchi, reduced air movement Gastrointestinal: normoactive bowel sounds, No tenderness, No ascites Skin: warm, normal color, No erythema Musculoskeletal: normal joint ROM, no joint effusions, generalized weakness Neurologic: AAOx3 Psychiatric: interacting appropriately, not anxious, not encephalopathic, thought process linear ICD10 Worksheet Patient Problems: Problems Problem Status Onset Acute cerebellar hemorrhage Acute Urinary retention Acute
--- NOTE | 2017-07-17 15:58 | GDS ---
[f rep st] DISCHARGE SUMMARY DISCHARGE DIAGNOSES: 1. Hyponatremia. Fall. 2. Agitation with delirium. 3. Line provoked nonocclusive deep venous thrombosis. 4. Drowsiness. 5. Rash. 6. History of cerebellar hemorrhage. 7. Aphasia. 8. Urinary retention. 9. Hypertension. STUDIES AND PROCEDURES DONE: See hospital medical record. PHYSICAL EXAMINATION: GENERAL: The patient is alert. VITAL SIGNS: Afebrile at 36.3, pulse is 79, respiratory rate 17, blood pressure is 117/80. He is saturating 92% on room air. I have seen and ev aluated the patient prior to disposition. HOSPITAL COURSE: The patient is a 62-year-old male who suffered a cerebellar hemorrhage, was admitte d to the hospital secondary to hypernatremia, was evaluated and diagnosed with: 1. Hypernatremia in the setting of decreased oral intake. The patient has a PEG tube in place. He is receiving water flushes and will continue with these at the time of disposition. His sodium is wi thin normal limits and has been for several days. 2. Fall. This is a result of the patient's acute hemorrhage. He will continue physical therapy and occupational therapy. 3. Agitation with delirium. The patient is easily redirectable. He has Zyprexa as well as Ativan f or supplemental medications. He is less agitated today. 4. Line provoked nonocclusive DVT. The patient's PICC line has been removed. No further indication for treatment at this time. 5. Drowsiness. This is better. The patient's Seroquel dose was cut in half. He has responded well to this. 6. History of cerebellar hemorrhage. This is status post craniotomy. He has residual dizziness as well as dysphagia and aphasia. These conditions will require continued therapies. 7. Aphasia. Continue speech therapy. 8. Urinary retention. Continue patient's Nicole catheter. He will likely need a cystoscopy in the [facility]. 9. Hypertension. His blood pressure is well controlled. DISPOSITION: The patient will be medevaced to [place] to be admitted to [facility] er. I have discussed this with the patient as well as his partner and Case Management. There are no pending studies. DISCHARGE MEDICATIONS: Please refer to EMR form. The patient will continue meclizine, Phenergan, Zo citlaly, Seroquel, Prozac, Lovenox. I have discontinued his previously prescribed propranolol, lisinopril, Norvasc. FOLLOWUP: Will be in [place] at [facility]. I have spent greater than 35 minutes in the care, coordination, and management of this patient's disp osition. /[id number]/MODL
--- NOTE | 2017-07-17 16:35 | ASMTCMCOM ---
CM Note CM Note Notes: Images on CD, Per Alex at [facility] at 06:15 am tomorrow ([phone]), Jamie aware as well, final dc summary faxed to [place] and sent via [employer]. Bed availability confirmed with [facility] as well as Yoly from [facility]. Spoke with patient's RN who is aware of dc plan. All faxes confirmed to [place] and [facility]. Packet of information in envelope by chart, CM available if needs arise. Date Signed: 07/17/2017 04:35 PM Electronically Signed By:Zofia Augustin RN
[2017-07-17] MEDS: OLANZapine 10 MG TAB TUBE SCH (20:19)
[2017-07-17] MEDS: MELATONIN 3 MG TAB TUBE SCH (20:20)
[2017-07-17] MEDS ORDERED: QUEtiapine FUMARATE 25 MG TAB TUBE SCH (21:00)
[2017-07-17] MEDS: LORazepam 0.5 MG TAB TUBE SCH (22:35)
[2017-07-18] MEDS: OLANZapine DISINTEGR 5 MG TAB TUBE PRN ×2 (02:31→06:38)
[2017-07-18 05:49] VITALS: BP 122/81; PULSE 72; RESP 18; TEMP 97.6; O2SAT 93
[2017-07-18] MEDS: FLUoxetine 20 MG CAP TUBE SCH (06:21)
[2017-07-18] MEDS: ENOXAPARIN 40 MG/0.4 ML SYR SC SCH (06:21)
--- NOTE | 2017-07-18 14:15 | ASDISCHSUM ---
Discharge Information Plan Status:Inpatient Rehab Medically Cleared to Leave: Discharge Date:07/18/2017 06:40 AM D/C Disposition:Other Rehab, Not [facility] D/C Disposition:Rehab Benefits Consultant Care Projected Discharge Date:07/15/2017 11:00 AM Transportation at D/C:Air Ambulance Discharge Delay Reason: Follow-Up Date:07/15/2017 11:00 AM Discharge Slot: Final Diagnosis:Hypernatremia Placement Information Referral Type:Rehabilitation Hospital Referral ID:[id number] Provider Name:[facility] Address 1:[address] [place] [address] Address 2: City:[place] Selection Factors: State:[place] Patient Contact Information Contact Name:OLVIN Relationship: Address:[address] [place] [address] City:[place] Alternate Phone: State/Zip Code:[place] [address] Email: Financial Information Financial Class:HMO and PPO Plans Primary Plan Desc:NAHUM PPO Primary Plan Number:[id number] Secondary Plan Desc: Secondary Plan Number: Assessment Information [facility] CM Progress Note CM Note CM Note Notes: Patient was sent to ED from [facility] Inpatient rehab last night with acute hypernatremia. He was hospitalized at [facility] from 06/17 - 06/30 after an acute cerebellar stroke and discharged to inpatient rehab on 06/30. Today, he is somnolent but agitated. I spoke with Su at inpatient rehab who says that patient's Jamie is here from [place] and has expressed that he would like to take patient home for rehab there when he is medically stable. PT/OT/WEIGHT LOSS SALES CONSULTANT ordered and pending. We will assist with discharge planning when patient's needs become more clear. Su will also attempt to check in on patient and . Current CM Discharge plan: TBD Date Signed: 07/02/2017 03:45 PM Electronically Signed By:Keri Medina RN [facility] Progress Note CM Note CM Note Notes: Per Su at Inpt Rehab, patient's insurance will change to [employer] 07/13/17. He still does not have a policy/member number. Su also looked into acute inpt rehab facilities in the [facility] (where patient and Jamie hope to transfer him to upon discharge). She has communicated this to Jamie; below is the body of an email that Su sent to Jamie: I wanted to send you the information I have been able to obtain re: acute IP rehabilitation facilities in the [facility]. Two that are in/around the [facility] are: [facility] in [facility] in [place] I was able to speak with Adelina Recinos in the Admissions Dept. at [facility] and she was able to confirm they accept [employer] insurance. The phone number for admissions is: [phone]. Adelina mentioned, if you were to choose [facility], her colleague Celi Kapoor would be the contact center director moving forward. CM will follow for discharge planning. Date Signed: 07/03/2017 02:15 PM Electronically Signed By:Keri Medina RN [facility] CM Progress Note CM Note CM Note Notes: Spoke w/Dr Almonte today who said that pt's family is interested in acute rehabs in area other than our in pt rehab. I attempted to meet w/family but they were not present at that time. CM will try again on Thursday. Date Signed: 07/04/2017 05:39 PM Electronically Signed By:Milka Hill RN [facility] Progress Note CM Note CM Note Notes: Spoke w pt sister Rani ([phone]) and partner Jamie ([phone]) who request referrals to [facility], [facility] and [facility], they plan to tour tomorrow. Jamie also states when speaking w these facilities he would like to get a sense of how long pt may be in their program and how long it may be until pt can take a commercial flight because if it is longer than a couple of weeks Jamie may want to consider medical flight transport to an inpatient acute in [place]. CM to follow. Date Signed: 07/06/2017 01:51 PM Electronically Signed By:KIM Cazares [facility] Progress Note CM Note CM Note Notes: Pt does not meet criteria for [facility] due to age and not a trauma injury. [facility] has no bed available and does not take [employer]ana. [facility] cannot accommodate a sitter and does not take Humana insurance. The Humana provider in [place] is [facility] ([facility] [place] and [facility]), per pt partner Jamie request a referral was sent to [facility]. Jamie also requests a referral to [facility] in [place] (not associated w [facility] in [place]). Referral sent in [employer] and a voicemail was left for admissions this afternoon. If pt can secure a bed at [facility] Jamie will secure a way to travel back to [place]. Jamie is provided medical air transport list and laser/electro optics technician lists for RN escort on commercial flight. Jamie has already done some research into a full service RN escort estimating the cost at approximately $6000. Pt now has a sitter, unknown if this will placement. CM to follow. Date Signed: 07/07/2017 04:47 PM Electronically Signed By:KIM Cazares [facility] CM Progress Note CM Note CM Note Notes: Spoke lalito Ramos ([phone]) at [facility] who reports they will need updates 07/14/17 and only then will make final determination and seek insurance authorization when pt [employer] in effect. This CM informed Rachel pt health care proxy is partner Jamie (copy in chart), pt plans either to fly by medical air transport or commercial flight w RN escort (if appropriate/approved) and pt is currently 1:1 with a sitter. Rachel states they may be able to accommodate 1:1 at [facility] they will have to see where pt is on 07/14/17 and what beds/staffing looks like. [facility] inpatient rehab believes pt to be a good candidate for their program, started insurance authorization today. Spoke lalito Abdullahi [phone] at [facility] who states pt is appropriate but will re-assess Thursday when [employer] insurance is active. Kaylen states [employer] notoriously denies inpatient rehab level of care but will submit for auth if pt still appropriate 07/14/17. CM to follow. D/c plan of care: Family prefers [facility] in [place] which is pending until at least 07/14/17. If [place] inpatient rehab is needed [facility] or [facility]. Date Signed: 07/08/2017 04:55 PM Electronically Signed By:KIM Cazares [facility] CM Progress Note CM Note CM Note Notes: Telephone call from [place] at [facility], they have insurance authorization and a bed for pt. Informed [place] family is trying for [facility] in [facility], [place] reports they have several d/c over the next week and will have a bed if pt does want [facility]. Updated pt partner Jamie and sister Rani, state they may tour [facility] tomorrow but are still most interested in [facility] [place]. Jamie has been in touch with [facility] placement director and [employer] to be proactive in arranging this. Family really want pt home soon and the challenges are pts changing insurance 07/13/17 and [facility] inability to review pt and make a determination on acceptance/bed availability/obtain insurance authorization until 07/14/11. Jamie is researching air medical transport and seems to have found a company but cannot book anything yet due to no d/c date. Jamie is still interested in therapy input on if pt may be able to safely fly commercial with an RN escort. Updated clinicals sent to [facility] today (despite the fact Rachel said they would not look at clinicals until 07/13/17). CM to follow. Date Signed: 07/09/2017 05:03 PM Electronically Signed By:KIM Cazares [facility] CM Progress Note CM Note CM Note Notes: Spoke with Celi Kapoor ([phone]) at [facility] who states she has been in touch with Tony at [facility] who is working on a group number which could take a week. Pt partner Jamie called pt employment HR dept to ask for assistance in expediting this process. Tony was able to confirm with Celi Pabon is in the [facility] network. Celi does state based on clinicals pt is appropriate for their program. Celi reports [facility] admissions would need pt there by 3pm EST. Jamie was updated and reports he will use [employer] who work closely with [facility]. CM to send all updated clinicals Thursday07/13/17 so [facility] can have them for review and insurance auth 07/14/11. [facility] updated. CM to follow. Date Signed: 07/10/2017 04:46 PM Electronically Signed By:KIM Cazares [facility] CM Progress Note CM Note CM Note Notes: The plan is to fly back to [place] with medical transport and be admitted into the [facility]. Patient's ins changes to to [facility] Jul 13. This might complicate things. Date Signed: 07/13/2017 03:09 PM Electronically Signed By:Christina Worrell LCSW [facility] CM Progress Note CM Note CM Note Notes: Updates sent to [facility], no confirmation of bed/acceptance by close of business. Also, Celi Kapoor [phone] in admissions is going to let CM know if pt can d/c w sitter or if sitter needs to be d/c. Letter provided to Jamie per his request stating pt cannot safely fly commercial, he will try to see if insurance can assist w the medical air flight. Faxed clinicals to Alex at [employer] [phone]. It is a direct flight to [place]. Cm to follow. Date Signed: 07/14/2017 04:50 PM Electronically Signed By:KIM Cazares [facility] Progress Note CM Note CM Note Notes: Updates sent to [facility]. [employer] provided pt partner Jamie group number today, still waiting on individual policy number. [facility] accepts wknd admissions. CM to follow. Date Signed: 07/15/2017 03:59 PM Electronically Signed By:KIM Cazares [facility] CM Progress Note CM Note CM Note Notes: Chart reviewed. Per David at [facility] in [place]. they have a bed for sintia. Pt's is securing private pay and has contacted [employer] who can transport patient to [place] in am. Images requested to be loaded on CD. On chart. information updated to [facility] via [facility]. The must have final discharge summary faxed prior to acceptance of patient . Jessica Murphy aware. Alex from [facility] requesting recent labs and last progress not. Will fax to [phone]. Will fax dc summary to [phone] att: Yoly. Plan dc in am to [facility] via private medical flight. CM available should other needs arise. Date Signed: 07/17/2017 02:04 PM Electronically Signed By:Zofia Augustin RN [facility] CM Progress Note CM Note CM Note Notes: Images on CD, Per Alex at [facility] transport at 06:15 am tomorrow ([phone]), Jamie aware as well, final dc summary faxed to [facility] and sent via [facility]. Bed availability confirmed with Adelina as well as Yoly from [facility]. Spoke with patient's RN who is aware of dc plan. All faxes confirmed to [facility] and [facility]. Packet of information in envelope by chart, CM available if needs arise. Date Signed: 07/17/2017 04:35 PM Electronically Signed By:Zofia Augustin RN Intervention Information
--- NOTE | 2017-07-22 09:02 | PQFORM ---
PHYSICIAN QUERY FORM Needs Your Response This query form is being sent to you to assure this patient record is coded properly. Please respond to the question below: GRAB HOOKER QUESTION: Dr Hills Several progress notes document Encephalopathy for this patient however only agitation/delirium was mentioned in the Discharge Summary. Did this patient have Encephalopathy? _x__ Yes ___ No ___ Other (Please Specify ) ___ Unable to determine Thank You Belia MEJIA [employer] Player INSTRUCTIONS FOR RESPONSE: Answer question by clicking on the "Edit Document" button. Move cursor to area below the stars. When complete, hit "Save." Click on the "Sign" button, then click "Sign" again. Type in your PIN and hit "Enter." MTDD
== END 2017-07-18 06:40 | DRG 640 ==
LOC: F3E 20:49 → F2N 07-02 12:53 → F3N 07-05 15:39
PROVIDERS: ADMIT Internal Medicine; ATTEND Internal Medicine
PROC: 02HV33Z Insertion of Infusion Device into Superior Vena Cava, Percutaneous Approach (ICD-10-PCS; principal; 2017-07-02)
DX: E87.0 Hyperosmolality and hypernatremia (principal); G93.40 Encephalopathy, unspecified; T82.868A Thrombosis due to vascular prosthetic devices, implants and grafts, initial encounter; I69.991 Dysphagia following unspecified cerebrovascular disease; I69.920 Aphasia following unspecified cerebrovascular disease; R33.9 Retention of urine, unspecified; R45.1 Restlessness and agitation; R21 Rash and other nonspecific skin eruption; I10 Essential (primary) hypertension
CPT/HCPCS: 92507-GN; 92523-GN; 92526-GN; 92610-GN; 92611-GN; 97112-GP; 97116-GP; 97162-GP; 97167-GO; 97530-GO; 97530-GP; 97535-GO; C1751; J1650; J2060; J2405; J2997